=== PATIENT | female | born 1995 | race Caucasian/White ===

== ENCOUNTER → 2018-09-30 10:54 | Outpatient (CLI) | payer OTHER, SELFPAY | PROVIDERS: Family Provider Family Medicine; PCP Family Medicine; Referring Provider Family Medicine; Visit Provider Family Medicine | DX: R19.7 Diarrhea, unspecified (principal) | CPT/HCPCS: 36415; J7030 ==

== ENCOUNTER → 2018-11-20 08:33 | Outpatient (CLI) | payer OTHER, SELFPAY | PROVIDERS: Family Provider Family Medicine; PCP Family Medicine; Referring Provider Family Medicine; Visit Provider Family Medicine | DX: K85.90 Acute pancreatitis without necrosis or infection, unspecified (principal) | CPT/HCPCS: 36415 ==

== ENCOUNTER 2021-09-28 10:49 | Outpatient (CLI) | payer BC, SELFPAY ==
[2021-09-28 13:08] LABS: Anion Gap 5 (5-15); BUN 13 mg/dL (7-18); BUN/Creat Ratio 18.4 RATIO (10-20); Calcium,Total 9.1 mg/dL (8.5-10.1); Chloride 106 mmol/L (98-107); Cholesterol 178 mg/dL (200); Creatinine, Serum 0.71 mg/dL (0.55-1.02); EST Glomerular Filtration Rate 107 mL/min (>60); Est Glom Filt Rate - Afr Amer 129 mL/min (>60); Glucose 75 mg/dL (74-106); High Density Lipoprotein 47 mg/dL; Potassium 3.9 mmol/L (3.5-5.1); Sodium Level 138 mmol/L (136-145); Triglycerides 240 mg/dL; Very Low Density Lipoprotein 48 mg/dL (5-40)
[2021-09-28 13:15] LABS: Vitamin D,25 Hydroxy 40.2 ng/mL
== END 2021-09-28 23:59 | disposition home or self-care (01) ==
LOC: MFPLAB 10:51
PROVIDERS: PCP Family Medicine; Referring Provider Family Medicine; Visit Provider Family Medicine
DX: Z00.00 Encounter for general adult medical examination without abnormal findings (principal)
CPT/HCPCS: 36415; 80048; 80061; 82306

== ENCOUNTER → 2021-10-30 | Outpatient (CLI) | payer BC, SELFPAY ==
[2021-10-30 17:24] LABS: Mean Corp Hgb Conc 32.5 g/dL (32-36); Mean Corpuscular Hgb 26.6 pg (27.0-32.0); Mean Platelet Vol. 9.3 fl (6.2-12.0); Platelet Count 332 K/mm3 (150-450); RBC Distribution Width CV 13.9 % (11.6-14.6); RBC Distribution Width SD 41.4 fl (35.1-43.9); Red Blood Count 4.88 M/mm3 (4.2-5.4); White Blood Count 13.5 K/mm3 (4.4-11.0)
[2021-10-30 17:53] LABS: Estradiol 40.9 pg/mL; Follicle Stimulating Hormone 4.1 mIU/mL; Luteinizing Hormone 13.4 mIU/mL; T4 Free Direct 0.77 ng/dL (0.76-1.46); Thyroid Stim Hormone (TSH) 4.09 uIU/mL (0.358-3.74)
[2021-11-03 08:52] LABS: Testosterone Free 1.4 pg/mL (0.0-4.2)
[2021-11-05 16:41] LABS: HPV Reflexed? NOT INDICATED
== END | disposition home or self-care (01) ==
PROVIDERS: PCP Family Medicine; Visit Provider Obstetrics & Gynecology
DX: N93.9 Abnormal uterine and vaginal bleeding, unspecified (principal); Z12.4 Encounter for screening for malignant neoplasm of cervix
CPT/HCPCS: 36415; 82670; 83001; 83002; 84402; 84439; 84443; 85027; 88175; G0145

== ENCOUNTER → 2023-02-06 | Outpatient (CLI) | payer OTHER, MEDICAID, SELFPAY ==
[2023-02-06 17:39] LABS: Absolute Lymphocyte Count 5.15 X10^3/uL (0.83-4.51); Absolute Neutrophil Count 8.7 X10^3/uL (2.0-7.7); Basophil# 0.04 X10^3/uL; Basophil% 0.3 % (0-1); Eosinophil# 0.15 X10^3/uL; Hematocrit 44.5 % (37-47); Hemoglobin 13.8 g/dL (12.0-15.0); Lymphocyte # 5.15 X10^3/ul (0.83-4.51); Mean Corpuscular Hgb 26.6 pg (27.0-32.0); Mean Corpuscular Volume 85.7 fL (81-99); Mean Platelet Vol. 9.1 fl (6.2-12.0); Monocyte# 0.62 X10^3/uL; Monocyte% 4.2 % (0-10); NRBC Flagged by Analyzer 0 % (0-5); Neutrophil # 8.67 X10^3/uL (2.7-7.7); POSITIVE DIFFERENTIAL YES; Platelet Count 361 K/mm3 (150-450); RBC Distribution Width CV 13.9 % (11.6-14.6); RBC Distribution Width SD 43.2 fl (35.1-43.9); Red Blood Count 5.19 M/mm3 (4.2-5.4); White Blood Count 14.7 K/mm3 (4.4-11.0)
[2023-02-06 18:04] LABS: AST(SGOT) 17 U/L (15-37); Alanine Aminotransfer ALT/SGPT 27 U/L (13-56); Albumin, Serum 3.8 g/dL (3.2-5.0); Alkaline Phosphatase 33 U/L (45-117); Anion Gap 8 (5-15); BUN 13 mg/dL (7-18); BUN/Creat Ratio 16.2 RATIO (10-20); Calcium,Total 9.5 mg/dL (8.5-10.1); Chloride 104 mmol/L (98-107); Differential Indicated SCAN CRITERIA MET; EST Glomerular Filtration Rate 91 mL/min (>60); Est Glom Filt Rate - Afr Amer 110 mL/min (>60); Glucose 81 mg/dL (74-106); Protein, Total 7.8 g/dL (6.4-8.2); Sodium Level 139 mmol/L (136-145)
[2023-02-06 18:14] LABS: Platelet Estimate ADEQUATE (ADEQ); Red Cell Morphology NORM C+C NORMAL (NORM C&C)
== END | disposition home or self-care (01) ==
LOC: MTLAB 16:46
PROVIDERS: PCP Family Medicine; Visit Provider Family Medicine
DX: R10.11 Right upper quadrant pain (principal)
CPT/HCPCS: 36415; 80053; 85025

== ENCOUNTER → 2023-02-12 | Outpatient (CLI) | payer OTHER, MEDICAID, SELFPAY ==
[2023-02-12 17:32] LABS: Absolute Lymphocyte Count 4.64 X10^3/uL (0.83-4.51); Basophil# 0.03 X10^3/uL; Basophil% 0.2 % (0-1); Eosinophil# 0.07 X10^3/uL; Eosinophils% 0.6 % (0-5); Hematocrit 42.7 % (37-47); Hemoglobin 13.2 g/dL (12.0-15.0); Lymphocyte # 4.64 X10^3/ul (0.83-4.51); Lymphocyte % 37.6 % (19-41); Mean Corp Hgb Conc 30.9 g/dL (32-36); Mean Corpuscular Hgb 25.9 pg (27.0-32.0); Mean Corpuscular Volume 83.7 fL (81-99); Mean Platelet Vol. 9.4 fl (6.2-12.0); Monocyte# 0.56 X10^3/uL; Monocyte% 4.5 % (0-10); NRBC Flagged by Analyzer 0 % (0-5); Neutrophil # 6.99 X10^3/uL (2.7-7.7); Neutrophil % 56.7 % (47-70); Platelet Count 344 K/mm3 (150-450); RBC Distribution Width CV 13.9 % (11.6-14.6); RBC Distribution Width SD 42.5 fl (35.1-43.9); White Blood Count 12.3 K/mm3 (4.4-11.0)
== END | disposition home or self-care (01) ==
LOC: MFPLAB 14:47
PROVIDERS: PCP Family Medicine; Visit Provider Family Medicine
DX: R10.11 Right upper quadrant pain (principal)
CPT/HCPCS: 36415; 85025

== ENCOUNTER → 2023-02-20 | Outpatient (CLI) | payer OTHER, MEDICAID, SELFPAY ==
--- NOTE | 2023-02-20 07:28 | US_ITS ---
STUDY: ABDOMINAL ULTRASOUND - RIGHT UPPER QUADRANT REASON FOR VISIT: Female, 27 years old RUQ PAIN TECHNIQUE: Ultrasound evaluation of the right upper quadrant was performed with real-time and static nixon-scale imaging. TECHNICAL QUALITY: Limited. Examination limited due to obesity. COMPARISON: None. FINDINGS: Liver: The liver measures 16.4 cm. There is increased echogenicity consistent with fatty infiltration. The bile ducts are within normal limits. There is hepatic color flow. The direction of portal flow is hepatopetal. There is no demonstrated mass lesion. Gallbladder: Normal distended gallbladder. The gallbladder wall measures 1.9 mm. There is a negative sonographic Molina''s sign. There is no pericholecystic fluid. There are no gallstones. Common Bile Duct (C.B.D.): The common bile duct measures 5.3 mm. Pancreas: Normal size of the head, body and tail of the pancreas. There is increased echogenicity of the pancreas. There is no demonstrated pancreatic mass or cyst. Right Kidney: Normal size of the right kidney. The right kidney measures 10.3 cm x 5.8 cm x 5.5 cm. Normal renal cortex. The right cortex measures 1.2 cm. There is no demonstrated renal mass or cyst. There is no right hydronephrosis. US/Abdomen Limited IMPRESSION: Fatty infiltration of the liver. Electronically Signed: Giovanni Merritt MD at 14:45 EDT ,
== END | disposition home or self-care (01) ==
LOC: US 07:27
PROVIDERS: PCP Family Medicine; Referring Provider Family Medicine; Visit Provider Family Medicine
DX: R10.11 Right upper quadrant pain (principal)
CPT/HCPCS: 76705

== ENCOUNTER → 2023-12-18 | Outpatient (CLI) | payer OTHER, SELFPAY ==
[2023-12-18 17:27] LABS: T4 Free Direct 0.76 ng/dL (0.76-1.46); Thyroid Stim Hormone (TSH) 3.85 uIU/mL (0.358-3.74)
== END | disposition home or self-care (01) ==
LOC: LAB 16:02
PROVIDERS: PCP Family Medicine; Visit Provider Nurse Practitioner Family
DX: Z13.29 Encounter for screening for other suspected endocrine disorder (principal); R53.83 Other fatigue
CPT/HCPCS: 36415; 84439; 84443

== ENCOUNTER 2024-03-29 15:25 | Emergency (ER) | payer OTHER, SELFPAY ==
[2024-03-29 15:26] VITALS: BP 152/108; PULSE 114; RESP 18; TEMP 36.4; O2SAT 99; BMI 49.2
--- NOTE | 2024-03-29 16:29 | EDS_ITS ---
HPI HPI - Female History of Present Illness Chief Complaint: Vag Bleeding Detail of Chief Complaint: Vaginal bleeding that started Informant: patient Pain Pain: Positive for Pelvic Pain Onset: Days Context: Sudden Onset Timing: Continuous Quality: Positive for Cramping Location: Suprapubic Current Severity: Mild Maximum Severity: Moderate Worsened by: Movement and [place] Relieved by: Remaining Still and NSAIDS Bleeding Issue: Positive for Vaginal bleeding; Negative for Passing clots or Passing tissue Associated Symptoms Associated Symptoms: Negative for Dysuria, Frequency, Urgency or Hematuria Test: Positive Sexually: Positive for Active Control: No control Narrative Narrative: Patient is a 28-year-old female. She reports having irregular menses. She has sexually active. She states vaginal bleeding started on . She is using 1 ultra pad per hour. She does endorse intermittent orthostatic lightheadedness. She denies dyspnea or dyspnea on exertion. She denies symptoms of . She does report frequency. She denies flank pain. She does drink endorse low central back pain. She denies history of bleeding d isorder or bruising easily. Prior similar symptoms: No Recent Illness/Hospitalization: No PFSH PFSH Medical History Pancreatitis Home Medications ?Medication ?Instructions ?Recorded ?Last Taken ?Type nortriptyline 25 mg capsule 25 mg PO DAILY 12/18/23 Unknown History megestrol 20 mg tablet 40 mg (2 x 20 mg) PO BID #35 tabs 03/29/24 Unknown Rx Allergy/AdvReac Type Severity Reaction Status Date / Time Penicillins AdvReac Mild Rash Verified 03/29/24 15:29 Family History Grandmother Breast cancer Aunt Breast cancer Father Myocardial infarction Other Cancer Social History adopted: No household members: significant other housing: house number of children: 0 current occupational status: employed current occupation: [employer] current occupational exposures/hazards: No pets and animals: Yes leisure activities: other history of recent travel: No sexually active: Yes Smoking Status: Never smoker Electronic Cigarette Use: with nicotine alcohol intake: current alcohol intake frequency: holidays/special occasions only substance use type: other caffeine: Yes Type: tea eating out: 1-3 times/week during the past year weight has: remained stable what type of physical activity do you participate in: walking frequency: 3-4 times per week marisol/alevism: None seatbelt use: always do you feel safe at home: Yes ROS ROS ED Constitutional Constitutional ED: Reports chills; Denies fever(s) or subjective Eyes Eyes: Denies blurry vision, change in vision or diplopia ENT ENT ED: Denies ear pain or rhinorrhea Cardiovascular Cardiovascular: Denies chest pain or palpitations Respiratory/Chest Respiratory/Chest: Denies cough, dyspnea or dyspnea on exertion Gastrointestinal Gastrointestinal: Reports abdominal pain and other Details: Midline suprapubic discomfort. ; Denies constipation, diarrhea, melena, nausea or vomiting Genitourinary Genitourinary ED: Denies dysuria, hematuria or urinary frequency Musculoskeletal Musculoskeletal: Denies arthralgias, myalgias or neck pain Integumentary Denies rash Neurologic Neurologic: Denies headache(s) or paresthesias Hematologic/Lymphatic Hematologic/Lymphatic: Denies easy bleeding or easy bruising EXAM Physical Exam Const Vital Signs: 03/29/24 15:26 03/29/24 17:31 03/29/24 17:32 Temperature 97.5 F L Temperature Source Temporal Pulse Rate 114 H 85 Pulse Rate [Lying] 94 Pulse Rate [Sitting (for 1 minute prior to obtaining)] 86 Pulse Rate [Standing (for 1 minute prior to obtaining)] 80 Respiratory Rate 18 16 Blood Pressure 152/108 H 110/63 Blood Pressure [Lying] 148/133 H Blood Pressure [Sitting (for 1 minute prior to obtaining)] 111/65 Blood Pressure [Standing (for 1 minute prior to obtaining)] 114/70 Blood Pressure Mean 122 78 Blood Pressure Mean [Lying] 138 Blood Pressure Mean [Sitting (for 1 minute prior to obtaining)] 80 Blood Pressure Mean [Standing (for 1 minute prior to obtaining)] 84 Pulse Ox 99 Oxygen Delivery Method Room Air Positive well nourished and well developed General Appearance ED: well developed and NAD; Negative for pallor HEENT Reports moist mucous membranes HEENT Narrative: Ears normal. Nares patent. Eyes PERRL and EOMs intact bilaterally General Eye ED: Negative for pale conjunctiva or scleral icterus Resp normal respiratory effort and clear to auscultation bilaterally Cardio regular rhythm, S1 normal heart sound, no murmurs and no JVD Rate: tachycardic GI normal to inspection, nondistended, normoactive bowel sounds, soft to palpation, non-distended and no masses; Negative for non-tender GI Narrative: There is tenderness in the suprapubic area. Narrative: External genitalia normal. Vaginal mucosa appears normal. Cervix os is irregular shaped. Patient states she is ever been . Difficult to assess size of uterus due to body habitus. There is slight active bleeding noted. Question of a cystocele which would be unusual since she states she is never been on bimanual exam. There is no cervical motion tenderness. There is no adnexal fullness or tenderness. Back/Spine no CVA tenderness Extremity normal to inspection General Extremety ED: Negative for edema General Extremity: Negative for edema Neuro oriented x3 and CN's II-XII intact bilaterally Sensorium / Orientation: alert Psych mental status grossly normal Skin no rashes or lesions noted and no wounds General Skin Exam: Negative for pallor MDM MDM MDM Narrative Medical decision making narrative: Patient with abnormal vaginal bleeding. Since she is sexually active does not use any for control will obtain test. CBC to obtain H&H. Will also have nurse distiller pelvic exam. Patient is tachycardic. Since she is tachycardic orthostatic vital signs were ordered. Lab Data Attestation: I reviewed the patient's lab results. Lab results narrative: CBC reveals mild elevation of white count. Serum test is negative. Labs: Laboratory Results - last 24 hr 03/29/24 16:36 WBC 12.5 H RBC 4.91 Hgb 13.2 Hct 41.2 MCV 83.9 MCH 26.9 L MCHC 32.0 RDW Std Deviation 42.5 RDW Coeff of Eric 13.8 Plt Count 295 MPV 8.9 Immature Gran % (Auto) 0.400 Neut % (Auto) 59.7 Lymph % (Auto) 34.2 [place] % (Auto) 4.8 Eos % (Auto) 0.7 Baso % (Auto) 0.2 Absolute Neuts (auto) 7.5 Absolute Lymphs (auto) 4.28 Nucleated RBC % 0 Serum , Qual NEGATIVE Radiography Diagnostic Testing: Clinical Impression(s) from Imaging Studies Transvaginal US 03/29/24 17:33 IMPRESSION: No definite acute or significant abnormality seen. Electronically Signed: Joce Martin MD at 19:07 EDT , Spoke with Zeina again regarding ultrasound. Plan is Megace 40 mg for 7 days then 20 mg for 21 days. She is to contact the office for outpatient follow-up. Management Discussion w/another healthcare provider: Necktie Turner (Spoke with Zeina the nurse practitioner for Katelin Feliz and Dr. Allison Greenberg. Plan is ultrasound. If there is no abnormality call office for follow-up otherwise contact Dr. Danny Cramer) Discharge Plan Triage Chief Complaint: Vag Bleeding ED Provider: Gurjit Rios Dx/Rx/DC Orders Clinical Impression: Abnormal vaginal bleeding, Irregular menses Instructions: ED Dysfunctional Uterine Bleeding Prescriptions: New megestrol 20 mg tablet 40 mg PO BID Qty: 35 0RF Rx Instructions: Take 2 a day for 7 days then 1 a day for 21 days No Action nortriptyline 25 mg capsule 25 mg PO DAILY Primary Care Provider: Jeffrey Orourke Referrals: Jeffrey Orourke MD [Primary Care Provider] - Katelin Feliz MD [Med Staff - Active Staff] - 1 Week Print Language: Bahamian Disposition Disposition: Home, Self Care
[2024-03-29 16:53] LABS: Absolute Lymphocyte Count 4.28 X10^3/uL (0.83-4.51); Absolute Neutrophil Count 7.5 X10^3/uL (2.0-7.7); Basophil# 0.03 X10^3/uL; Basophil% 0.2 % (0-1); Eosinophil# 0.09 X10^3/uL; Eosinophils% 0.7 % (0-5); Hematocrit 41.2 % (37-47); Hemoglobin 13.2 g/dL (12.0-15.0); Lymphocyte # 4.28 X10^3/ul (0.83-4.51); Lymphocyte % 34.2 % (19-41); Mean Corpuscular Hgb 26.9 pg (27.0-32.0); Mean Corpuscular Volume 83.9 fL (81-99); Mean Platelet Vol. 8.9 fl (6.2-12.0); Monocyte% 4.8 % (0-10); NRBC Flagged by Analyzer 0 % (0-5); Neutrophil # 7.48 X10^3/uL (2.7-7.7); Neutrophil % 59.7 % (47-70); Platelet Count 295 K/mm3 (150-450); RBC Distribution Width CV 13.8 % (11.6-14.6); RBC Distribution Width SD 42.5 fl (35.1-43.9); Red Blood Count 4.91 M/mm3 (4.2-5.4); White Blood Count 12.5 K/mm3 (4.4-11.0)
[2024-03-29 17:06] LABS: Internal QC Validated? YES +Cl - CLEAR BKGD; Pregnancy, Serum, hCG Quali. NEGATIVE Negative
[2024-03-29 17:31] VITALS: BP 110/63; PULSE 85; RESP 16
[2024-03-29 17:32] VITALS: BP 111/65; BP 114/70; BP 148/133; PULSE 80; PULSE 86; PULSE 94
--- NOTE | 2024-03-29 17:33 | US_ITS ---
STUDY: ULTRASOUND TRANSVAGINAL CLINICAL: Female, 28 years old. Abnormal vaginal bleeding and pelvic pain TECHNIQUE: Transvaginal COMPARISON: None. FINDINGS: Normal uterine size measuring 6.7 x 4.6 x 3.8 cm in maximal craniocaudal dimension. There are no myometrial masses. Normal endometrial thickness measuring 5.4 mm. There are no endometrial masses, and there is no fluid in the endometrial cavity. Normal uterine cervix. Normal right ovary, measuring 3.8 x 2.2 x 2.8 cm. There are multiple follicles without a dominant cyst. Normal blood flow. Normal left ovary, measuring 2.8 x 1.9 x 1.7 cm. There are multiple follicles without a dominant cyst. Normal blood flow. There is no free fluid in the pelvis. Polycystic ovary disease: No. US/Transvaginal Non- IMPRESSION: No definite acute or significant abnormality seen. Electronically Signed: Joce Martin MD at 19:07 EDT ,
[2024-03-29 19:00] VITALS: BP 115/89; PULSE 75; RESP 18; O2SAT 100
[2024-03-29 19:53] VITALS: BP 123/87; PULSE 76; RESP 16; TEMP 36.8; O2SAT 100
== END 2024-03-29 19:59 | disposition home or self-care (01) ==
PROVIDERS: Emergency Provider Emergency Medicine; PCP Family Medicine; Visit Provider Emergency Medicine
DX: N93.9 Abnormal uterine and vaginal bleeding, unspecified (principal); N92.6 Irregular menstruation, unspecified
CPT/HCPCS: 76830; 84703; 85025; 99283; A4216

== ENCOUNTER → 2024-04-07 | Outpatient (CLI) | payer OTHER, SELFPAY ==
[2024-04-07 17:23] LABS: T4 Free Direct 0.75 ng/dL (0.76-1.46)
[2024-04-08 17:05] LABS: Free T3 2.4 pg/mL (2.18-3.98)
[2024-04-10 08:12] LABS: Thyroid Peroxidase AB 13 IU/mL (0-34)
== END | disposition home or self-care (01) ==
LOC: WOBLAB 14:14
PROVIDERS: PCP Family Medicine; Referring Provider Nurse Practitioner Family; Visit Provider Nurse Practitioner Family
DX: Z13.29 Encounter for screening for other suspected endocrine disorder (principal)
CPT/HCPCS: 36415; 84439; 84443; 84481; 86376

== ENCOUNTER → 2024-07-13 | Outpatient (CLI) | payer OTHER, SELFPAY ==
[2024-07-13 14:43] LABS: Free T3 2.8 pg/mL (2.18-3.98); T4 Free Direct 0.85 ng/dL (0.76-1.46)
== END | disposition home or self-care (01) ==
LOC: BWCLAB 08:22
PROVIDERS: PCP Family Medicine; Referring Provider Nurse Practitioner Family; Visit Provider Nurse Practitioner Family
DX: Z13.29 Encounter for screening for other suspected endocrine disorder (principal); E03.9 Hypothyroidism, unspecified
CPT/HCPCS: 36415; 84439; 84443; 84481

== ENCOUNTER → 2024-12-23 | Outpatient (CLI) | payer OTHER, SELFPAY | END | disposition home or self-care (01) | LOC: LABSPEC 16:22 | PROVIDERS: PCP Family Medicine; Referring Provider Nurse Practitioner Family; Visit Provider Nurse Practitioner Family | DX: Z12.4 Encounter for screening for malignant neoplasm of cervix (principal) | CPT/HCPCS: 88175; G0145 ==

== ENCOUNTER → 2025-01-27 | Outpatient (CLI) | payer OTHER, SELFPAY | END | disposition home or self-care (01) | PROVIDERS: PCP Family Medicine; Referring Provider Nurse Practitioner Family; Visit Provider Nurse Practitioner Family | DX: Z00.00 Encounter for general adult medical examination without abnormal findings (principal); Z80.3 Family history of malignant neoplasm of breast; Z80.41 Family history of malignant neoplasm of ovary | CPT/HCPCS: 36415 ==

== ENCOUNTER → 2025-03-16 | Outpatient (CLI) | payer OTHER, SELFPAY ==
--- OUTSIDE RECORDS SUMMARY | 2025-03-16 18:55 | XMS RPT_ITS | CCD ---
Author Organization [facility] Care Team Providers Care Fruit Or Nut Grower Name Role Phone Jeffrey Orourke MD Primary Care Provider PHYSICIAN, NOT RECORDED Primary Care Physician Jaci Orourke MD, Dr. Murphy Primary Care Provider Sharad CARPENTER, Dr. Murphy Referring Provider King JAYDEN, Dr. Carlson Attending Provider Sae CONCAVING MACHINE OPERATOR-C, Nancy Attending Provider Sae CONCAVING MACHINE OPERATOR-C, Nancy Referring Provider Jeffrey Orourke Primary Care Unavailable Orourke, Jeffrey Referring Unavailable Nancy Quevedo Attending Unavailable Orourke, Jeffrey Primary Care Unavailable Orourke, Jeffrey Referring Unavailable Sae, Nancy Attending Unavailable Marquita Bourgeois NP Attending Unavailable Orourke, Jeffrey Referring Unavailable Orourke, Jeffrey Primary Care Unavailable Orourke, Jeffrey Primary Care Unavailable Aldo Linares Attending Unavailable Orourke, Jeffrey Referring Unavailable RiosGurjit Attending Unavailable Orourke, Jeffrey Primary Care Unavailable Orourke, Jeffrey Primary Care Unavailable Sae, Nancy Referring Unavailable Irisman, Nancy Attending Unavailable Orourke, Jeffrey Primary Care Unavailable Barkman, Nancy Referring Unavailable Barkman, Nancy Attending Unavailable Orourke, Jeffrey Primary Care Unavailable Barkman, Nancy Attending Unavailable Barkman, Nancy Referring Unavailable Barkman, Nancy Attending Unavailable Orourke, Jeffrey Primary Care Unavailable Barkman, Nancy Referring Unavailable Barkman, Nancy Attending Unavailable Orourke, Jeffrey Referring Unavailable Orourke, Jeffrey Primary Care Unavailable Orourke, Jeffrey Referring Unavailable Orourke, Jeffrey Primary Care Unavailable Sae, Nancy Attending Unavailable Allergies Allergy Classification Reported Allergen(s) Allergy Type Date of Onset Reaction(s) Facility (2 sources) Penicillins; Translations: [penicillins] Drug Allergy 5 Rash [facility] (4 sources) Penicillins Propensity to adverse reactions 5 [facility] (1 source) Penicillins Drug allergy (disorder) 5 [facility] Repository Medications Current Medications Medication Drug Class(es) Dates Sig (Normalized) Sig (Original) {7 (Ethinyl Estradiol 0.035 MG / norgestimate 0.18 MG Oral Tablet) / 7 (Ethinyl Estradiol 0.035 MG / norgestimate 0.215 MG Oral Tablet) / 7 (Ethinyl Estradiol 0.035 MG / norgestimate 0.25 MG Oral Tablet) / 7 (Inert Ingredients 1 MG Oral Tablet) } Pack (1 source) Progestin, Estrogen Start: 9 take 1 tablet by mouth once daily ethinyl estradiol-norgestimate triphasic 35 mcg oral tablet Dose = 1 tab(s), Oral, qDay Start Date: 11/09/18 Status: Ordered medroxyPROGESTERone acetate 10 mg oral tablet (2 sources) Progestin Start: 5 take 1 tablet by mouth once daily Medroxyprogesterone (Provera) 10 mg tablet Active 10 mg PO daily 10 January 27, 2025 12:00am [place] (2 sources) Start: [address] [place] [address] [place] Active December 23, 2024 12:00am pantoprazole 20 mg delayed release oral tablet (1 source) Proton Pump Inhibitor Start: 9 pantoprazole 20 mg oral enteric coated tablet Dose : 20 mg = 1 tab(s), Oral, qDay, # 30 tab(s), 0 Refill(s), Pharmacy: [facility] [address] [place] Start Date: 11/10/18 Status: Ordered Completed/Discontinued Medications Medication Drug Class(es) Dates Sig (Normalized) Sig (Original) guaiFENesin (1 source) GUAIFENESIN (MUCINEX ORAL) Take by mouth. 0 Active Comment on above: Take by mouth. levothyroxine sodium 0.075 mg oral tablet (4 sources) l-Thyroxine Start: 10-08-2024 End: 12-23-2024 take 1 tablet by mouth once daily Levothyroxine 75 mcg tablet Discontinued 75 ug PO daily 90 October 08, 2024 12:00am December 23, 2024 3:39pm MEDICATION, NON-DATABASE (1 source) MEDICATION, NON-DATABASE Oral control, unsure of name 0 Active Comment on above: Oral control, unsure of name megestrol acetate 20 mg oral tablet (4 sources) Progestin Start: 03-29-2024 End: 07-15-2024 take 2 tablets by mouth once daily, then take 1 tablet by mouth once daily Megestrol 20 mg tablet Discontinued 40 mg PO TWICE A DAY 35 0 March 29, 2024 12:00am July 15, 2024 4:46pm Take 2 a day for 7 days then 1 a day for 21 days metFORMIN hydrochloride 1000 mg oral tablet (4 sources) Biguanide Start: 10-08-2024 End: 12-23-2024 take 1 tablet by mouth once daily Metformin 1,000 mg tablet Discontinued 1000 mg PO daily 90 3 October 08, 2024 12:00am December 23, 2024 3:39pm nortriptyline 25 mg oral capsule (4 sources) Tricyclic Antidepressant Start: 2023 End: 07-15-2024 take 1 capsule by mouth once daily Nortriptyline 25 mg capsule Discontinued 25 mg PO DAILY 2023 12:00am July 15, 2024 4:46pm Problems Problem Classification Problem Date Documented Date Episodic/Chronic Contraceptive and procreative management (1 source) Encounter for contraceptive management, unspecified; Translations: [Encounter for contraceptive management, unspecified] Onset: 01-27-2025 Episodic Menstrual disorders (16 sources) Irregular periods; Translations: [Irregular menstruation, unspecified] Onset: 01-27-2025 04-07-2024 Chronic Comment on above: x 2 years. secondary Other endocrine disorders (14 sources) Polycystic ovary syndrome; Translations: [Polycystic ovarian syndrome] 10-10-2024 Chronic Other endocrine disorders (1 source) Polycystic ovarian syndrome; Translations: [Polycystic ovarian syndrome] Onset: 01-27-2025 Chronic Other female genital disorders (4 sources) Abnormal vaginal bleeding; Translations: [Abnormal uterine and vaginal bleeding, unspecified] 04-07-2024 Chronic Other female genital disorders (1 source) Abnormal uterine and vaginal bleeding, unspecified; Translations: [Abnormal uterine and vaginal bleeding, unspecified] Onset: 04-19-2024 Chronic Other female genital disorders (4 sources) Cyst of cervix; Translations: [Other specified noninflammatory disorders of cervix uteri] 04-07-2024 Episodic Comment on above: above cervical os. Other screening for suspected conditions (not mental disorders or infectious disease) (14 sources) Thyroid function tests abnormal; Translations: [Abnormal results of thyroid function studies] Onset: 07-29-2024 10-10-2024 Episodic Residual codes; unclassified (4 sources) Family history of malignant neoplasm of ovary; Translations: [Family history of malignant neoplasm of ovary] 01-27-2025 Episodic Comment on above: aunt/cousin Residual codes; unclassified (1 source) Family history of malignant neoplasm of ovary; Translations: [Family history of malignant neoplasm of ovary] Onset: 01-27-2025 Episodic Results Test Name Value Interpretation Reference Range Facility Laboratory - Chemistry and C hemistry - challengeOrdered By: Nancy Quevedo on 01-27-2025 HCG ( test) Ql (U) Negative [facility] NATERAon 01-27-2025 NATURA SEE SCANNED REPORT Normal [facility] Comment on above: Performed By: #### L 700.6800, L100.0100 #### [facility] [address] [place], [place], [id number] Assistive Technology Specialist Office Visit Reporton 01-27-2025 Assistive Technology Specialist Office Visit Report [facility] [address], [address] [place] [address] OFFICE VISIT Date of Service: 01/27/25 MR#: [id number] Acct: [id number] Name: JUANITO ESTEVEZ Rep #: [id number] : 1995 Provider: ISAC Hi Age/Sex: 29/F Location: [facility] Status: Signed Intake Vital Signs 12/23/24 15:33 01/27/25 15:21 Height 5 ft 3.5 in 5 ft 3.5 in Weight: 275 lb 273 lb 8 oz BMI 47.9 47.7 BP 122/75 H 128/86 H Intake Visit Reasons: OCP discussion $30 copay 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: No Is patient in pain?: No Allergies Penicillins Adverse Reaction (Mild, Verified 01/27/25 15:26) Rash Medications ???Medication ???Instructions ???Recorded ???Confirmed ???Type medroxyprogesterone 10 mg tablet 10 mg PO QDAY #10 tabs 01/27/25 Rx (Provera) Post menopausal: No Patient : No : No PFSH Medical History Abnormal results of thyroid function studies PCOS (polycystic ovarian syndrome) Pancreatitis Family History Grandmother Breast cancer Aunt Breast cancer Father Myocardial infarction Other Cancer Social History adopted: No household members: significant other housing: house number of children: 0 current occupational status: employed current occupation: [employer] current occupational exposures/hazards: No pets and animals: Yes leisure activities: other history of recent travel: No sexually active: Yes Smoking Status: Never smoker Electronic Cigarette Use: with nicotine alcohol intake: current alcohol intake frequency: holidays/special occasions only substance use type: other caffeine: Yes Type: tea eating out: 1-3 times/week during the past year weight has: remained stable what type of physical activity do you participate in: walking frequency: 3-4 times per week marisol/anabaptism: None seatbelt use: always do you feel safe at home: Yes HPI OCP discussion $30 copay Details: JUANITO ESTEVEZ is a 29 year old who presents for OCP discussion vs provera challenge. She has been having irregular menses x 2 years; recently however has not had a menses since Jul 2024. Multiple negative tests. History of PCOS. It was recommended by her bill adjuster to start OCP however she has a hard time remembering to take medication. Interested in provera challenge/possible IUD in the future. History 0 Elective abortions Hx Para Spontaneous abortions Hx # Term Pregnancies Ectopic pregnancies Hx # Pregnancies Multiple births # of living children ROS Const Constitutional: Denies chills, fatigue, fever(s), headache(s) or weight loss Eyes Eyes: Denies change in vision ENT ENT: Denies dizziness Resp Resp: Denies cough Neuro Neuro: Denies dizziness Endo Endo: Denies cold intolerance, excessive sweating or heat intolerance Exam Const General: cooperative, healthy appearing, comfortable, no acute distress, well groomed and well hydrated Nutritional Appearance: well nourished Orientation: alert, awake and oriented x3 Eyes General: appearance normal, both eyes and all related structures Resp Effort Inspection: normal respiratory effort, able to speak in complete sentences and symmetric chest movement Neuro General: patient alert, patient awake, patient oriented x3 and moves all extremities Psych Appearance: grossly normal Mental Status: mental status grossly normal Affect: normal affect Speech and Movement: speech and movement normal Attitude: cooperative Results POC Urine Office , Urine Negative Last Edit by Marquita Bridges on 01/27/25 15:25 Coding Level of Care Code Established Pt Off vis,est,level 3 Patient Type Established Diagnoses PCOS (polycystic ovarian syndrome) E28.2 Irregular menses N92.6 Amenorrhea N91.2 Family history of ovarian cancer Z80.41 Assessment and Plan Assessment and Plan (1) PCOS (polycystic ovarian syndrome): Status: Chronic Plan: chronic management--not interested in control at this time; considering IUD after provera challenge. (2) Irregular menses: Status: Acute Comment: x 2 years. (3) Amenorrhea: Status: Acute Comment: secondary Plan: Has not had menses since Jul. Negative test today. Discussed different treatment options to her and she would like to proceed with provera challenge. Aware of the possibility of --advised alt use of control such as condoms or abstaining from sex. Does not want to do OCP as she had a hard time remembering to take her pills consistently. She is interested in IUD as well however would like (more content not included)... Normal [facility] PAP I-G w/rfx hrHPV-Aptimaon 12-30-2024 ADEQ Comment Normal . [facility] Comment on above: Order Comment: Speci men Comment: No. of containers..01 ThinPrep Vial Result Comment: Sati sfactory for evaluation. No endocervical component is identified. Performed By: #### L 7400.0353 #### [facility] [address] [place], [address] COMM . Normal . [facility] Comment on above: Order Comment: Speci men Comment: No. of containers..01 ThinPrep Vial Performed By: #### L 7400.0353 #### [facility] [address] [place], [place], [address] COMMENT Comment Normal . [facility] Comment on above: Order Comment: Speci men Comment: No. of containers..01 ThinPrep Vial Result Comment: This liquid based ThinPrep(R) pap test was screened with the use of an image guided system. Performed By: #### L 7400.0353 #### [facility] [address] [place], [address] DIAG Comment Normal . [facility] Comment on above: Order Comment: Speci men Comment: No. of containers..01 ThinPrep Vial Result Comment: NEGA TIVE FOR INTRAEPITHELIAL LESION OR MALIGNANCY. Performed By: #### L 7400.0353 #### [facility] [address] [place], [address] HPV RFLX Comment Normal . [facility] Comment on above: Order Comment: Speci men Comment: No. of containers..01 ThinPrep Vial Result Comment: The HPV DNA reflex criteria were not met with this specimen result therefore, no HPV testing was performed. Performed at: [address] [id number] Sanitary Landfill Operator: Magalis Barakat MD, Phone: [phone] Performed By: #### L 7400.0353 #### [facility] [address] [place], [address] PAPSMR Comment Normal . [facility] Comment on above: Order Comment: Speci men Comment: No. of containers..01 ThinPrep Vial Result Comment: The Pap smear is a screening test designed to aid in the detection of premalignant and malignant conditions of the uterine cervix. It is not a diagnostic procedure and should not be used as the sole means of detecting cervical cancer. Both false-positive and false-negative reports do occur. Performed By: #### L 7400.0353 #### [facility] [address] [place], [place], [address] PERFORM Comment Normal . [facility] Comment on above: Order Comment: Speci men Comment: No. of containers..01 ThinPrep Vial Result Comment: Fernanda Telles, Instantizer Operator (ASCP) Performed By: #### L 7400.0353 #### [facility] [address] [place], [place], [address] Cervical or vagninal specime n microscopic examination by cytology stain (reported asOrdered By: Nancy Quevedo on 12-23-2024 Cytology report Cyto stain Doc (Cvx/Vag) Comment . [facility] Comment on above: The Pap smear is a s creening test designed to aid in thedetection of premalignant and malignant conditions of theuterine cervix. It is not a diagnostic procedure andshould not be used as the sole means of detecting cervicalcancer. Both false-positive and false-negative reports dooccur. Laboratory - Chemistry and C hemistry - challengeOrdered By: Nancy Quevedo on 12-23-2024 HCG ( test) Ql (U) Negative [facility] - CytologyOrdered By: Nancy Quevedo on 12-23-2024 Instantizer Operator Cyto stain Nom (Cvx/Vag) [ID] Comment . [facility] Comment on above: Fernanda Telles, Cytolog ist (ASCP) Laboratory - Miscellaneous t estsOrdered By: Nancy Quevedo on 12-23-2024 Service comment (Unsp spec) [Interp] . . [facility] No Panel InformationOrdered By: Nancy Quevedo on 12-23-2024 Pap Smear Specimen Adequacy Comment . [facility] Comment on above: Satisfactory for bety luation. No endocervical component is identified. Assistive Technology Specialist Office Visit Reporton 12-23-2024 Assistive Technology Specialist Office Visit Report [facility] [address], [address] [place] [address] OFFICE VISIT Date of Service: 12/23/24 MR#: [id number] Acct: [id number] Name: JUANITO ESTEVEZ Rep #: [id number] : 1995 Provider: ISAC Hi Age/Sex: 29/F Location: [facility] Status: Signed Intake Vital Signs 10/08/24 14:00 12/23/24 15:33 Height 5 ft 3.5 in 5 ft 3.5 in Weight: 274 lb 4 oz 275 lb BMI 47.8 47.9 BP 119/82 H 122/75 H Blood Pressure Location Lt brachial Position Sitting Pulse 95 Pulse Source Monitor Pulse Oximetry (%) 96 Oxygen Delivery Method room air Intake Visit Reasons: 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 CLERK) 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: No Is patient in pain?: No Allergies Penicillins Adverse Reaction (Mild, Verified 12/23/24 15:39) Rash Medications ???Medication ???Instructions ???Recorded ???Confirmed ???Type NK 12/23/24 12/23/24 History Is last menstrual period known: Yes Last Menstrual Period: 06/23/24 Post menopausal: No Patient : No : No Control Method: none PFSH Medical History Abnormal results of thyroid function studies PCOS (polycystic ovarian syndrome) Pancreatitis Family History Grandmother Breast cancer Aunt Breast cancer Father Myocardial infarction Other Cancer Social History adopted: No household members: significant other housing: house number of children: 0 current occupational status: employed current occupation: [employer] current occupational exposures/hazards: No pets and animals: Yes leisure activities: other history of recent travel: No sexually active: Yes Smoking Status: Never smoker Electronic Cigarette Use: with nicotine alcohol intake: current alcohol intake frequency: holidays/special occasions only substance use type: other caffeine: Yes Type: tea eating out: 1-3 times/week during the past year weight has: remained stable what type of physical activity do you participate in: walking frequency: 3-4 times per week marisol/anabaptism: None seatbelt use: always do you feel safe at home: Yes History 0 Elective abortions Hx Para Spontaneous abortions Hx # Term Pregnancies Ectopic pregnancies Hx # Pregnancies Multiple births # of living children HPI 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 CLERK) Details: JUANITO ESTEVEZ is a 29 year old who presents for annual exam. Her last menses was in June or July of 2024--she is unsure which. She was seen by endocrinology and started on Synthroid and metformin however did not start these thus far. Last PAP: 2021; normal. History of abnormal PAP: no Last mammogram: age 40 History of abnormal mammogram: n/a Colon cancer screening: age 45 Other preventative health care screenings: Jeffrey Orourke; PCP. Female Reproductive History Last Menstrual Period: 06/23/24 Questions: metorrhagia: No, sexually active: Yes (no protection), dyspareunia: No and PCB: No ROS Const Constitutional: Denies chills, fatigue, fever(s), headache(s) or weight loss Eyes Eyes: Denies change in vision ENT ENT: Denies dizziness Resp Resp: Denies cough GI GI: Denies abdominal pain, constipation or nausea : Denies difficulty voiding, dysuria, hematuria, nipple discharge, pelvic pain, prolapse symptoms, urinary incontinence, vaginal discharge, vaginal dryness, vaginal odor or vaginal pruritus Skin Skin/Breast: Denies alopecia, rash, breast mass, breast pain, breast skin changes or nipple discharge Neuro Neuro: Denies dizziness Psych Psych: Denies anxiety or depression Endo Endo: Denies cold intolerance, excessive sweating or heat intolerance Exam Const General: cooperative, healthy appearing, comfortable, no acute distress, well groomed and well hydrated Nutritional Appearance: well nourished Orientation: alert, awake and oriented x3 HENMT Head: normal to inspection and normocephalic Ears: hearing grossly normal bilaterally and external ears normal Nose: external nose normal Face and sinus: normal facial exam Eyes General: appearance normal, both eyes and all related structures Neck Neck: normal visual inspection, full ROM and no lymphadenopathy Thyroid: thyroid normal Chest Chest palpation inspection: normal inspection of the chest Breast inspection: normal inspection of the breasts and normal inspection of the axillae Breast palpation: normal palpation of the breasts, normal palpation of the axillae and no axillary lymphadenopathy Resp Effort Inspection: normal respiratory effort, able to speak in complete sentences and symmetric chest movement GI Inspection: normal to inspection Palpation: soft and no (more content not included)... Normal [facility] Endocrinology Visit Reporton 10-08-2024 Endocrinology Visit Report [facility] [address] [place] [address] [address] [place] [address] OFFICE VISIT Date of Service: 10/08/24 MR#: [id number] Acct: [id number] Name: JUANITO ESTEVEZ Rep #: [id number] : 1995 Provider: Doug Dobbs Age/Sex: 28/F Location[place] [facility] [place] Status: Signed Intake Vital Signs 07/15/24 15:47 10/08/24 14:00 Height 5 ft 3.5 in 5 ft 3.5 in Weight: 274 lb 4 oz BMI 47.8 BP 119/82 H Blood Pressure Location Lt brachial Position Sitting Pulse 95 Pulse Source Monitor Pulse Oximetry (%) 96 Oxygen Delivery Method room air Intake Visit Reasons: Thyroid Chief Complaint: thyroid/menses Allergies Penicillins Adverse Reaction (Mild, Verified 10/08/24 14:01) Rash [facility] Medical History (Updated 10/10/24 @ 16:[address] Aldo Linares MD) Abnormal results of thyroid function studies PCOS (polycystic ovarian syndrome) Pancreatitis Family History Grandmother Breast cancer Aunt Breast cancer Father Myocardial infarction Other Cancer Social History adopted: No household members: significant other housing: house number of children: 0 current occupational status: employed current occupation: [employer] current occupational exposures/hazards: No pets and animals: Yes leisure activities: other history of recent travel: No sexually active: Yes Smoking Status: Never smoker Electronic Cigarette Use: with nicotine alcohol intake: current alcohol intake frequency: holidays/special occasions only substance use type: other caffeine: Yes Type: tea eating out: 1-3 times/week during the past year weight has: remained stable what type of physical activity do you participate in: walking frequency: 3-4 times per week marisol/anabaptism: None seatbelt use: always do you feel safe at home: Yes Female Reproductive History Menstrual Age of Menarche: 16 HPI HPI Chief Complaint: thyroid/menses Details: JUANITO ESTEVEZ, is a 28 F who presents to the office today for hormonal evaluation. She had menses at age 15. Menses are irregular. She is having about 4-5 menses per year. She has FMH of DM in her grandparents. She isn't preventing at this time, but she isn't sure that she wants children. She doesn't want to take OCP, but she wants a predictable period. She has had several TSH levels over 3 and under 5. TPO antibodies are negative. ROS Const Constitutional: No fatigue, weight change or change in appetite Eyes Eyes: No change in vision ENT ENT: No dizziness/vertigo or difficulty swallowing Cardio Cardiology: No chest pain at rest, chest pain with exertion, shortness of breath or palpitations Musc Musculoskeletal: No abnormal gait, joint pain, numbness or tingling Neuro Neurology: No abnormal gait, memory loss, numbness or tingling Psych Psychiatric: No change in appetite, No memory loss and No Thoughts of harming yourself/Others Resp Respiratory: No cough, chest congestion or shortness of breath Gastro GI: No abdominal pain, constipation, diarrhea or difficulty swallowing Genitourinary-Female: No burning urination Skin Skin: No itchy eyes or wounds Endo Endocrine: No fatigue or weight change Aller/Imm Allergy/Immunologic: No itchy eyes Exam Const General: cooperative, healthy appearing, comfortable, no acute distress, well developed and not cushingoid Nutritional Appearance: well nourished Orientation: alert, awake and oriented x3 Other: skin tags, acanthosis nigricans [facility] Head: normal to inspection Ears: hearing grossly normal bilaterally Nose: external nose normal Mouth: oral mucosae normal Eyes General: appearance normal, both eyes and all related structures Alignment and Position: alignment normal Periorbital: periorbital findings normal Eyelids: eyelids normal Conjunctivae: conjunctivae normal Neck Neck: normal visual inspection Neck mass: No Thyroid: thyroid normal Lymphatic: no lymphadenopathy noted Chest Chest palpation inspection: normal inspection of the chest Resp Effort Inspection: normal respiratory effort, able to speak in complete sentences, symmetric chest movement, no audible wheezes and no cough Auscultation: Bilateral: Clear to Auscultation Cardio Rate: regular rate Rhythm: regular rhythm Skin General: no rashes or lesions noted Neuro General: patient alert, patient awake and patient oriented x3 Cranial Nerves: CN's II-XI intact bilaterally Cognition: normal cognition Speech: speech normal Gait: normal gait Motor: muscle tone normal throughout Extrem General: no edema Psych Appearance: grossly normal Mental Status: mental status grossly norm (more content not included)... Normal [facility] Assistive Technology Specialist Office Visit Reporton 07-15-2024 Assistive Technology Specialist Office Visit Report [facility]'s [address], [address] [place] [address] OFFICE VISIT Date of Service: 07/15/24 MR#: [id number] Acct: [id number] Name: JUANITO ESTEVEZ Rep #: [id number] : 1995 Provider: ISAC Hi Age/Sex: 28/F Location: [facility] Status: Signed Intake Vital Signs 04/07/24 13:34 07/15/24 15:47 Height 5 ft 3.5 in 5 ft 3.5 in Weight: 279 lb BMI 48.6 BP 127/81 H Intake Visit Reasons: 12 week f/u cycles 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: No Allergies Penicillins Adverse Reaction (Mild, Verified 07/15/24 15:40) Rash Is last menstrual period known: Yes Last Menstrual Period: 06/29/24 (periods range from lasting only a few days to prolonged periods of bleeding for weeks at a time) Post menopausal: No Patient : No : No PFSH Medical History Pancreatitis Family History Grandmother Breast cancer Aunt Breast cancer Father Myocardial infarction Other Cancer Social History adopted: No household members: significant other housing: house number of children: 0 current occupational status: employed current occupation: [employer] current occupational exposures/hazards: No pets and animals: Yes leisure activities: other history of recent travel: No sexually active: Yes Smoking Status: Never smoker Electronic Cigarette Use: with nicotine alcohol intake: current alcohol intake frequency: holidays/special occasions only substance use type: other caffeine: Yes Type: tea eating out: 1-3 times/week during the past year weight has: remained stable what type of physical activity do you participate in: walking frequency: 3-4 times per week marisol/anabaptism: None seatbelt use: always do you feel safe at home: Yes [facility] 12 week f/u cycles Details: JUANITO ESTEVEZ is a 28 year old who presents for AUB. ER in March; took Megace. Had a bleed for 2 weeks in April; she then had menses May 30-; and then again on Jun 29-. Overall improved. Labwork resulted yesterday indicated elevated TSH; referral for endocrinology placed. Female Reproductive History Last Menstrual Period: 06/29/24 (periods range from lasting only a few days to prolonged periods of bleeding for weeks at a time) History 0 Elective abortions Hx Para Spontaneous abortions Hx # Term Pregnancies Ectopic pregnancies Hx # Pregnancies Multiple births # of living children ROS Const Constitutional: Denies chills, fatigue, fever(s), headache(s) or weight loss Eyes Eyes: Denies change in vision ENT ENT: Denies dizziness Resp Resp: Denies cough GI GI: Denies abdominal pain, constipation or nausea : Denies difficulty voiding, dysuria, hematuria, pelvic pain, prolapse symptoms, urinary incontinence, vaginal discharge, vaginal dryness, vaginal odor or vaginal pruritus Neuro Neuro: Denies dizziness Endo Endo: Denies cold intolerance, excessive sweating or heat intolerance Exam Const General: cooperative, healthy appearing, comfortable, no acute distress, well groomed and well hydrated Nutritional Appearance: well nourished Orientation: alert, awake and oriented x3 Eyes General: appearance normal, both eyes and all related structures Resp Effort Inspection: normal respiratory effort, able to speak in complete sentences and symmetric chest movement Neuro General: patient alert, patient awake, patient oriented x3 and moves all extremities Psych Appearance: grossly normal Mental Status: mental status grossly normal Affect: normal affect Speech and Movement: speech and movement normal Attitude: cooperative Coding Level of Care Code Established Pt Off vis,est,level 3 Patient Type Established Diagnoses Irregular menses N92.6 Hypothyroidism E03.9 Assessment and Plan Assessment and Plan (1) Irregular menses: Status: Acute Comment: x 2 years. Plan: regular since March; continue tracking. If becomes irregular/worsens call office. Not interested in OCP/IUD at this time. Discussed safe sex practices; will call office if she chooses to proceed with treatment. Advised dietary changes and exercise modifications beneficial to a healthy lifestyle. (2) Hypothyroidism: Status: Acute Plan: Referral placed to endocrinology. Follow with their evaluation and recommendations. 07/15/24 1613 Date Nancy Quevedo CONCAVING MACHINE OPERATOR-C Cosigner Signature: Date (if applicable) CC: Normal [facility] Free T3on 07-13-2024 Free T3 [Mass/Vol] 2.8 pg/mL Normal 2.18-3.98 [facility] Comment on above: Performed By: #### L 700.6800, L100.0100 #### [facility] [address] [place], [address] T4 Free Directon 07-13-2024 T4 FREE DIRECT 0.85 ng/dL Normal 0.76-1.46 [facility] Comment on above: Performed By: #### L 700.6800, L100.0100 #### [facility] [address] [place], [address] Thyroid Stim Hormone (TSH)on 07-13-2024 TSH 4.680 uIU/mL High 0.358-3.740 [facility] Comment on above: Performed By: #### L 700.6800, L100.0100 #### [facility] [address] [place], [address] Thyroid Peroxidase ABon 03-23 THYR PEROX AB 13 IU/mL Normal 0-34 [facility] Comment on above: Result Comment: Perf ormed at: - [facility] [id number] Sanitary Landfill Operator: Pito Whitt PhD, Phone: [phone] Performed By: #### L 700.6800, L100.0100 #### [facility] [address] [place], [address] Free T3on 04-08-2024 Free T3 [Mass/Vol] 2.4 pg/mL Normal 2.18-3.98 [facility] Comment on above: Performed By: #### L 700.6800, L100.0100 #### [facility] [address] [place], [address] Assistive Technology Specialist Office Visit Reporton 04-07-2024 Assistive Technology Specialist Office Visit Report [facility]'s [address], [address] [place] [address] OFFICE VISIT Date of Service: 04/07/24 MR#: [id number] Acct: [id number] Name: JUANITO ESTEVEZ Rep #: [id number] : 1995 Provider: ISAC Hi Age/Sex: 28/F Location: [facility] Status: Signed Intake Vital Signs 03/29/24 15:26 04/07/24 13:34 Height 5 ft 3.5 in 5 ft 3.5 in Weight: 279 lb BMI 48.6 BP 127/81 H Intake Visit Reasons: ER F/U Chief Complaint: er f/u 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: No Is patient in pain?: No Allergies Penicillins Adverse Reaction (Mild, Verified 04/07/24 13:32) Rash Medications ???Medication ???Instructions ???Recorded ???Confirmed ???Type nortriptyline 25 mg capsule 25 mg PO DAILY 12/18/23 04/07/24 History megestrol 20 mg tablet 40 mg (2 x 20 mg) PO BID #35 tabs 03/29/24 04/07/24 Rx Is last menstrual period known: Yes Last Menstrual Period: 03/28/24 Post menopausal: No Patient : No : No Control Method: none PFSH Medical History Pancreatitis Family History Grandmother Breast cancer Aunt Breast cancer Father Myocardial infarction Other Cancer Social History adopted: No household members: significant other housing: house number of children: 0 current occupational status: employed current occupation: [employer] current occupational exposures/hazards: No pets and animals: Yes leisure activities: other history of recent travel: No sexually active: Yes Smoking Status: Never smoker Electronic Cigarette Use: with nicotine alcohol intake: current alcohol intake frequency: holidays/special occasions only substance use type: other caffeine: Yes Type: tea eating out: 1-3 times/week during the past year weight has: remained stable what type of physical activity do you participate in: walking frequency: 3-4 times per week marisol/anabaptism: None seatbelt use: always do you feel safe at home: Yes HPI ER F/U Details: JUANITO ESTEVEZ is a 28 year old who presents for ER follow up; was seen in the [place] ER on March 29 for abnormal period/bleeding; reports she was filling an ultra tampon every hour. Switch to pads and was filling super pad every hour; labs reviewed and were stable. Ultrasound completed and stable. She was started on Megace. She reports her bleeding stopped the day of starting megace prior to start. She still started medication. Has not noted any more bleeding since other than brown spotting x 2 days. She reports prior to this she hadn't had a full menses greater than 2 day menses in about 2 years. Female Reproductive History Last Menstrual Period: 03/28/24 Questions: sexually active: Yes, dyspareunia: No and PCB: No History 0 Elective abortions Hx Para Spontaneous abortions Hx # Term Pregnancies Ectopic pregnancies Hx # Pregnancies Multiple births # of living children ROS Const Constitutional: Denies chills, fatigue, fever(s), headache(s) or weight loss Eyes Eyes: Denies change in vision ENT ENT: Denies dizziness Resp Resp: Denies cough GI GI: Denies abdominal pain, constipation or nausea : Denies difficulty voiding, dysuria, hematuria, pelvic pain, prolapse symptoms, urinary incontinence, vaginal discharge, vaginal dryness, vaginal odor or vaginal pruritus Neuro Neuro: Denies dizziness Endo Endo: Denies cold intolerance, excessive sweating or heat intolerance Exam Const General: cooperative, healthy appearing, comfortable, no acute distress, well groomed and well hydrated Nutritional Appearance: well nourished Orientation: alert, awake and oriented x3 HENMT Head: normal to inspection and normocephalic Ears: hearing grossly normal bilaterally and external ears normal Nose: external nose normal Face and sinus: normal facial exam Eyes General: appearance normal, both eyes and all related structures Resp Effort Inspection: normal respiratory effort, able to speak in complete sentences and symmetric chest movement GI Inspection: normal to inspection Palpation: soft and no hepatosplenomegaly General: bladder normal to palpation External Female Exam: normal external appearance and normal appearance of the urethra Urethra: normal appearance of the urethra Speculum Exam - Vagina: normal appearance of the vagina, normal vaginal discharge, no lesions, No vaginal bleeding and nontender Speculum Exam - Cervix: normal appearance of the cervix, no lesions, no masses and other (simple cyst above cervix; nontender, soft. 2cm, round. ) Bimanual Exam- Vagina Uterus: normal bimanual exam, uterine size normal, bladder (more content not included)... Normal [facility] T4 Free Directon 04-07-2024 T4 FREE DIRECT 0.75 ng/dL Low 0.76-1.46 [facility] Comment on above: Performed By: #### L 700.6800, L100.0100 #### [facility] [address] [place], [address] Thyroid Stim Hormone (TSH)on 04-07-2024 TSH 3.750 uIU/mL High 0.358-3.740 [facility] Comment on above: Performed By: #### L 700.6800, L100.0100 #### [facility] [address] [place], [address] CBC W/Diff, Automatedon Absolute Lymph 4.28 X10 3/uL Normal 0.83-4.51 [facility] Comment on above: Performed By: #### L 700.6800, L100.0100 #### [facility] [address] [place], [address] Absolute Neut 7.5 X10 3/uL Normal 2.0-7.7 [facility] Comment on above: Performed By: #### L 700.6800, L100.0100 #### [facility] [address] [place], [address] Basophils/100 WBC (Bld) 0.2 % Normal 0-1 [facility] Comment on above: Performed By: #### L 700.6800, L100.0100 #### [facility] [address] [place], [address] Eosinophils/100 WBC (Bld) 0.7 % Normal 0-5 [facility] Comment on above: Performed By: #### L 700.6800, L100.0100 #### [facility] [address] [place], [address] Erythrocyte distribution width (RBC) [Ratio] 13.8 % Normal 11.6-14.6 [facility] Comment on above: Performed By: #### L 700.6800, L100.0100 #### [facility] [address] [place], [address] Hematocrit (Bld) [Volume fraction] 41.2 % Normal 37-47 [facility] Comment on above: Performed By: #### L 700.6800, L100.0100 #### [facility] [address] [place], [address] Hemoglobin (Bld) [Mass/Vol] 13.2 g/dL Normal 12.0-15.0 [facility] Comment on above: Performed By: #### L 700.6800, L100.0100 #### [facility] [address] [place], [address] IG% 0.400 Normal 0.0-0.9 [facility] Comment on above: Result Comment: IG% - Immature Granulocytes (promyelocytes, myelocytes and metamyelocytes) > 1% indicates that a LEFT SHIFT is Present. Performed By: #### L 700.6800, L100.0100 #### [facility] [address] [place], [address] Lymphocytes/100 WBC (Bld) 34.2 % Normal 19-41 [facility] Comment on above: Performed By: #### L 700.6800, L100.0100 #### [facility] [address] [place], [address] MCH (RBC) [Entitic mass] 26.9 pg Low 27.0-32.0 [facility] Comment on above: Performed By: #### L 700.6800, L100.0100 #### [facility] [address] [place], [address] MCHC (RBC) [Mass/Vol] 32.0 g/dL Normal 32-36 [facility] Comment on above: Performed By: #### L 700.6800, L100.0100 #### [facility] [address] [place], [address] MCV (RBC) [Entitic vol] 83.9 fL Normal 81-99 [facility] Comment on above: Performed By: #### L 700.6800, L100.0100 #### [facility] [address] [place], [address] Monocytes/100 WBC (Bld) 4.8 % Normal 0-10 [facility] Comment on above: Performed By: #### L 700.6800, L100.0100 #### [facility] [address] [place], [address] Neutrophils/100 WBC (Bld) 59.7 % Normal 47-70 [facility] Comment on above: Performed By: #### L 700.6800, L100.0100 #### [facility] [address] [place], [address] Nucleated RBC (Bld) [#/Vol] 0 10*3/uL Normal 0-5 [facility] Comment on above: Performed By: #### L 700.6800, L100.0100 #### [facility] [address] [place], [address] Platelet mean volume (Bld) [Entitic vol] 8.9 fL Normal 6.2-12.0 [facility] Comment on above: Performed By: #### L 700.6800, L100.0100 #### [facility] [address] [place], [address] Platelets (Bld) [#/Vol] 295 10*3/uL Normal 150-450 [facility] Comment on above: Performed By: #### L 700.6800, L100.0100 #### [facility] [address] [place], [address] RBC (Bld) [#/Vol] 4.91 10*6/uL Normal 4.2-5.4 [facility] Comment on above: Performed By: #### L 700.6800, L100.0100 #### [facility] [address] [place], [address] RDW SD 42.5 fl Normal 35.1-43.9 [facility] Comment on above: Performed By: #### L 700.6800, L100.0100 #### [facility] [address] [place], [address] WBC (Bld) [#/Vol] 12.5 10*3/uL High 4.4-11.0 [facility] Comment on above: Performed By: #### L 700.6800, L100.0100 #### [facility] [address] [place], [address] Emergency Department Summary on 03-29-2024 Emergency Department Summary [facility] Medical Records Department [address] [place] [address] Emergency Department Summary 03/29/24 MR#: [id number] Acct: [id number] Name: JUANITO ESTEVEZ Rep #: [id number] : 1995 28 From: Gurjit Rios MD PCP: Dr. Jeffrey Orourke MD Status:REG ER Location: ED HPI HPI - Female History of Present Illness Chief Complaint: Vag Bleeding Detail of Chief Complaint: Vaginal bleeding that started Informant: patient Pain Pain: Positive for Pelvic Pain Onset: Days Context: Sudden Onset Timing: Continuous Quality: Positive for Cramping Location: Suprapubic Current Severity: Mild Maximum Severity: Moderate Worsened by: Movement and Labelle Relieved by: Remaining Still and NSAIDS Bleeding Issue: Positive for Vaginal bleeding; Negative for Passing clots or Passing tissue Associated Symptoms Associated Symptoms: Negative for Dysuria, Frequency, Urgency or Hematuria Test: Positive Sexually: Positive for Active Control: No control Narrative Narrative: Patient is a 28-year-old female. She reports having irregular menses. She has sexually active. She states vaginal bleeding started on . She is using 1 ultra pad per hour. She does endorse intermittent orthostatic lightheadedness. She denies dyspnea or dyspnea on exertion. She denies symptoms of . She does report frequency. She denies flank pain. She does drink endorse low central back pain. She denies history of bleeding disorder or bruising easily. Prior similar symptoms: No Recent Illness/Hospitalizatio n: No PFSH PFSH Medical History Pancreatitis Home Medications ???Medication ???Instructions ???Recorded ???Last Taken ???Type nortriptyline 25 mg capsule 25 mg PO DAILY 12/18/23 Unknown History megestrol 20 mg tablet 40 mg (2 x 20 mg) PO BID #35 tabs 03/29/24 Unknown Rx Allergy/AdvReac Type Severity Reaction Status Date / Time Penicillins AdvReac Mild Rash Verified 03/29/24 15:29 Family History Grandmother Breast cancer Aunt Breast cancer Father Myocardial infarction Other Cancer Social History adopted: No household members: significant other housing: house number of children: 0 current occupational status: employed current occupation: [employer] current occupational exposures/hazards: No pets and animals: Yes leisure activities: other history of recent travel: No sexually active: Yes Smoking Status: Never smoker Electronic Cigarette Use: with nicotine alcohol intake: current alcohol intake frequency: holidays/special occasions only substance use type: other caffeine: Yes Type: tea eating out: 1-3 times/week during the past year weight has: remained stable what type of physical activity do you participate in: walking frequency: 3-4 times per week marisol/anabaptism: None seatbelt use: always do you feel safe at home: Yes ROS ROS ED Constitutional Constitutional ED: Reports chills; Denies fever(s) or subjective Eyes Eyes: Denies blurry vision, change in vision or diplopia ENT ENT ED: Denies ear pain or rhinorrhea Cardiovascular Cardiovascular: Denies chest pain or palpitations Respiratory/Chest Respiratory/Chest: Denies cough, dyspnea or dyspnea on exertion Gastrointestinal Gastrointestinal: Reports abdominal pain and other Details: Midline suprapubic discomfort. ; Denies constipation, diarrhea, melena, nausea or vomiting Genitourinary Genitourinary ED: Denies dysuria, hematuria or urinary frequency Musculoskeletal Musculoskeletal: Denies arthralgias, myalgias or neck pain Integumentary Denies rash Neurologic Neurologic: Denies headache(s) or paresthesias Hematologic/Lymphatic Hematologic/Lymphatic: Denies easy bleeding or easy bruising EXAM Physical Exam Const Vital Signs: 03/29/24 15:26 03/29/24 17:31 03/29/24 17:32 Temperature 97.5 F L Temperature Source Temporal Pulse Rate 114 H 85 Pulse Rate [Lying] 94 Pulse Rate [Sitting (for 1 minute prior to obtaining)] 86 Pulse Rate [Standing (for 1 minute prior to obtaining)] 80 Respiratory Rate 18 16 Blood Pressure 152/108 H 110/63 Blood Pressure [Lying] 148/133 H Blood Pressure [Sitting (for 1 minute prior to obtaining)] 111/65 Blood Pressure [Standing (for 1 minute prior to obtaining)] 114/70 Blood Pressure Mean 122 78 Blood Pressure Mean [Lying] 138 Blood Pressure Mean [Sitting (for 1 minute prior to obtaining)] 80 Blood Pressure Mean [Standing (for 1 minute prior to obtaining)] 84 Pulse Ox 99 Oxygen Delivery Method Room Air Positive well nourished and well developed General Appearance ED: well d (more content not included)... Normal [place] [facility] ,Serum,hCG Quali.on 03-29-2024 HCG, SERUM QUAL Negative Normal [facility] Comment on above: Performed By: #### L 700.6800, L100.0100 #### [facility] [address] [place], [address] Transvaginal Non-on 03-29-2024 Transvaginal Non- [facility] Services [address] [place] [address] Transvaginal Non- MR#: [id number] Acct: [id number] Name: JUANITO ESTEVEZ Rep #: [id number] : 1995 F 28 From: Joce alexandre MD PCP: Dr. Jeffrey Orourke MD Status: [facility] Study: Transvaginal Non- Date of Exam: Exam# [id number] Ordering Dr: Gurjit Rios [place] [id number] STUDY: ULTRASOUND TRANSVAGINAL CLINICAL: Female, 28 years old. Abnormal vaginal bleeding and pelvic pain TECHNIQUE: Transvaginal COMPARISON: None. FINDINGS: Normal uterine size measuring 6.7 x 4.6 x 3.8 cm in maximal craniocaudal dimension. There are no myometrial masses. Normal endometrial thickness measuring 5.4 mm. There are no endometrial masses, and there is no fluid in the endometrial cavity. Normal uterine cervix. Normal right ovary, measuring 3.8 x 2.2 x 2.8 cm. There are multiple follicles without a dominant cyst. Normal blood flow. Normal left ovary, measuring 2.8 x 1.9 x 1.7 cm. There are multiple follicles without a dominant cyst. Normal blood flow. There is no free fluid in the pelvis. Polycystic ovary disease: No. US/Transvaginal Non- IMPRESSION: No definite acute or significant abnormality seen. Electronically Signed: Joce Martin MD at 19:07 EDT , CC: Dr. Jeffrey Orourke MD; Dr. Gurjit Rios MD Flatwork Washer: Signed Normal [facility] Absolute lymphocyte countOrd ered By: Nunu Denson on 02-12-2023 Lymphocytes Auto (Unsp spec) [#/Vol] 4.64 10*3/uL 0.83-4.51 [facility] Basophil percentageOrdered B y: Nunu Denson on 02-12-2023 Basophils/100 WBC (Bld) 0.2 % 0-1 [facility] Eosinophils/100 WBC (Bld) 0.6 % 0-5 [facility] Neutrophils (Bld) [#/Vol] 7.0 10*3/uL 2.0-7.7 [facility] Neutrophils/100 WBC (Bld) 56.7 % 47-70 [facility] WBC (Bld) [#/Vol] 12.3 10*3/uL 4.4-11.0 [facility] Blood erythrocytes count (nu mber/volume)Ordered By: Nunu Denson on 02-12-2023 RBC (Bld) [#/Vol] 5.10 10*6/uL 4.2-5.4 [facility] Blood hemoglobin measurement (mass/volume)Ordered By: Nunu Denson on 02-12-2023 Hemoglobin (Bld) [Mass/Vol] 13.2 g/dL 12.0-15.0 [facility] Blood lymphocytes/100 leukoc ytesOrdered By: Nunu Denson on 02-12-2023 Lymphocytes/100 WBC (Bld) 37.6 % 19-41 [facility] Blood monocytes/100 leukocyt esOrdered By: Nunu Denson on 02-12-2023 Monocytes/100 WBC (Bld) 4.5 % 0-10 [facility] Blood platelet mean volumeOr dered By: Nunu Denson on 02-12-2023 Platelet mean volume (Bld) [Entitic vol] 9.4 fL 6.2-12.0 [facility] Determination of erythrocyte mean corpuscular volume (MCV)Ordered By: Nunu Denson on 02-12-2023 MCV (RBC) [Entitic vol] 83.7 fL 81-99 [facility] Hematocrit Auto (Bld) [Volum e fraction]Ordered By: Nunu Denson on 02-12-2023 Hematocrit (Bld) [Volume fraction] 42.7 % 37-47 [facility] Laboratory - Hematology and Cell countsOrdered By: Nunu Denson on 02-12-2023 Erythrocyte distribution width (RBC) [Entitic vol] 42.5 fL 35.1-43.9 [facility] Erythrocyte distribution width (RBC) [Ratio] 13.9 % 11.6-14.6 [facility] Immature granulocytes/100 WBC (Bld) 0.400 % 0.0-0.9 [facility] Comment on above: IG% - Immature Granu locytes (promyelocytes, myelocytes and metamyelocytes) > 1% indicates that a LEFT SHIFT is Present. MCH (RBC) [Entitic mass] 25.9 pg 27.0-32.0 [facility] Nucleated RBC/100 WBC (Bld) [Ratio] 0 % 0-5 [facility] MCHC Auto (RBC) [Mass/Vol]Or dered By: Nunu Denson on 02-12-2023 MCHC (RBC) [Mass/Vol] 30.9 g/dL 32-36 [facility] Platelets bldOrdered By: Daniela Denson on 02-12-2023 Platelets (Bld) [#/Vol] 344 10*3/uL 150-450 [facility] Absolute lymphocyte countOrd ered By: Nunu Denson on 02-06-2023 Lymphocytes Auto (Unsp spec) [#/Vol] 5.15 10*3/uL 0.83-4.51 [facility] Basophil percentageOrdered B y: Nunu Denson on 02-06-2023 Basophils/100 WBC (Bld) 0.3 % 0-1 [facility] Bilirubin [Mass/Vol] 0.20 mg/dL 0.20-1.00 [facility] Comment on above: For patients on eltr ombopag therapy, use of Dimension [place] TBIL is not recommended. Chloride [Moles/Vol] 104 mmol/L 98-107 [facility] Eosinophils/100 WBC (Bld) 1.0 % 0-5 [facility] Glucose [Mass/Vol] 81 mg/dL 74-106 [facility] Neutrophils (Bld) [#/Vol] 8.7 10*3/uL 2.0-7.7 [facility] Neutrophils/100 WBC (Bld) 59.0 % 47-70 [facility] Potassium [Moles/Vol] 4.0 mmol/L 3.5-5.1 [facility] Protein [Mass/Vol] 7.8 g/dL 6.4-8.2 [facility] Sodium [Moles/Vol] 139 mmol/L 136-145 [facility] WBC (Bld) [#/Vol] 14.7 10*3/uL 4.4-11.0 [facility] Blood erythrocytes count (nu mber/volume)Ordered By: Nunu Denson on 02-06-2023 RBC (Bld) [#/Vol] 5.19 10*6/uL 4.2-5.4 [facility] Blood hemoglobin measurement (mass/volume)Ordered By: Nunu Denson on 02-06-2023 Hemoglobin (Bld) [Mass/Vol] 13.8 g/dL 12.0-15.0 [facility] Blood lymphocytes/100 leukoc ytesOrdered By: Nunu Denson on 02-06-2023 Lymphocytes/100 WBC (Bld) 35.0 % 19-41 [facility] Blood manual differential co mment interpretation (narrative result)Ordered By: Nunu Denson on 02-06-2023 Manual differential comment Nito (Bld) [Interp] SEE COMMENT [facility] Comment on above: LYMPHOCYTOSIS NOTED Blood monocytes/100 leukocyt esOrdered By: Nunu Denson on 02-06-2023 Monocytes/100 WBC (Bld) 4.2 % 0-10 [facility] Blood platelet adequacy dete ction by light microscopyOrdered By: Nunu Denson on 02-06-2023 Platelets LM Ql (Bld) ADEQUATE ADEQ [facility] Blood platelet mean volumeOr dered By: Nunu Denson on 02-06-2023 Platelet mean volume (Bld) [Entitic vol] 9.1 fL 6.2-12.0 [facility] Determination of erythrocyte mean corpuscular volume (MCV)Ordered By: Nunu Denson on 02-06-2023 MCV (RBC) [Entitic vol] 85.7 fL 81-99 [facility] Hematocrit Auto (Bld) [Volum e fraction]Ordered By: Nunu Denson on 02-06-2023 Hematocrit (Bld) [Volume fraction] 44.5 % 37-47 [facility] Laboratory - Chemistry and C hemistry - challengeOrdered By: Nunu Denson on 02-06-2023 ALP [Catalytic activity/Vol] 33 U/L 45-117 [facility] ALT [Catalytic activity/Vol] 27 U/L 13-56 [facility] CO2 [Moles/Vol] 27.0 mmol/L 21.0-32.0 [facility] Globulin (S) [Mass/Vol] 4.0 g/dL 2.2-4.2 [facility] Urea nitrogen/Creatinine [Mass ratio] 16.2 mg/mg 10-20 [facility] Laboratory - Hematology and Cell countsOrdered By: Nunu Denson on 02-06-2023 Erythrocyte distribution width (RBC) [Entitic vol] 43.2 fL 35.1-43.9 [facility] Erythrocyte distribution width (RBC) [Ratio] 13.9 % 11.6-14.6 [facility] Immature granulocytes/100 WBC (Bld) 0.500 % 0.0-0.9 [facility] Comment on above: IG% - Immature Granu locytes (promyelocytes, myelocytes and metamyelocytes) > 1% indicates that a LEFT SHIFT is Present. MCH (RBC) [Entitic mass] 26.6 pg 27.0-32.0 [facility] Nucleated RBC/100 WBC (Bld) [Ratio] 0 % 0-5 [facility] MCHC Auto (RBC) [Mass/Vol]Or dered By: Nunu Denson on 02-06-2023 MCHC (RBC) [Mass/Vol] 31.0 g/dL 32-36 [facility] No Panel InformationOrdered By: Nunu Denson on 02-06-2023 Estimated GFR (MDRD) Amer 110 mL/min >60 [facility] Comment on above: GFR Calc Estimated GFR (MDRD) Non-Af Amer 91 mL/min >60 [facility] Comment on above: Non- GFR Calc Platelets bldOrdered By: Daniela Denson on 02-06-2023 Platelets (Bld) [#/Vol] 361 10*3/uL 150-450 [facility] RBC morphologyOrdered By: Duke Denson on 02-06-2023 RBC morphology finding Nom (Bld) NORM C+C NORMAL NORM C&C [facility] Serum or plasma albumin maurice urement (mass/volume)Ordered By: Nunu Denson on 02-06-2023 Albumin [Mass/Vol] 3.8 g/dL 3.2-5.0 [facility] Serum or plasma albumin/glob ulin mass ratioOrdered By: Nunu Denson on 02-06-2023 Albumin/Globulin [Mass ratio] 1.0 {ratio} 0.9-2.4 [facility] Serum or plasma calcium maurice urement (mass/volume)Ordered By: Nunu Denson on 02-06-2023 Calcium [Mass/Vol] 9.5 mg/dL 8.5-10.1 [facility] Serum or plasma creatinine m easurement (mass/volume)Ordered By: Nunu Denson on 02-06-2023 Creatinine [Mass/Vol] 0.80 mg/dL 0.55-1.02 [facility] Comment on above: The validity of the calculated GFR & GFRAA in patients over 70 years has not been determined. Clinical correlation is essential. Serum or plasma urea nitroge n measurement (mass/volume)Ordered By: Nunu Denson on 02-06-2023 Urea nitrogen [Mass/Vol] 13 mg/dL 7-18 [facility] Thin prep Papanicolaou smear with manual screeningOrdered By: Nunu Denson on 02-06-2023 Thin prep Papanicolaou smear with manual screening 17 U/L 15-37 [facility] Thin prep Papanicolaou smear with manual screening 8 5-15 [facility] Basophil percentageon 2021 Chloride [Moles/Vol] 106 mmol/L 98-107 [facility] Work Phone: Cholesterol [Mass/Vol] 178 mg/dL <200 [facility] Work Phone: Comment on above: <200 mg/dL Desirable 200-240 mg/dL Borderline >240 mg/dL High Risk Glucose [Mass/Vol] 75 mg/dL 74-106 [facility] Work Phone: Potassium [Moles/Vol] 3.9 mmol/L 3.5-5.1 [facility] Work Phone: Sodium [Moles/Vol] 138 mmol/L 136-145 [facility] Work Phone: Triglyceride [Mass/Vol] 240 mg/dL [facility] Work Phone: Comment on above: The drugs N-Acetylcy steine and Metamizole may falsely depress this assay.Serum Triglycerides Reference Interval Normal <150 mg/dL Borderline high 150 - 199 mg/dL High 200 - 499 mg/dL Very High > or = 500 mg/dL Laboratory - Chemistry and C hemistry - challengeon 09-28-2021 CO2 [Moles/Vol] 27.0 mmol/L 21.0-32.0 [facility] Work Phone: Urea nitrogen/Creatinine [Mass ratio] 18.4 mg/mg 10-20 [facility] Work Phone: No Panel Informationon 09-28 Estimated GFR (MDRD) Amer 129 mL/min >60 [facility] Work Phone: Comment on above: GFR Calc Estimated GFR (MDRD) Non-Af Amer 107 mL/min >60 [facility] Work Phone: Comment on above: Non- GFR Calc Vitamin D 25-Hydroxy 40.2 ng/mL [facility] Work Phone: Comment on above: Vitamin D 25(OH) Sta tus Range Deficiency <20 ng/mL (50nmol/L) Insufficiency 20 - 30 ng/mL (50 - 75 nmol/L) Sufficiency 30 - 100 ng/mL (75 - 250 nmol/L) Toxicity >100 ng/mL (>250 nmol/L) Serum or plasma calcium maurice urement (mass/volume)on 09-28-2021 Calcium [Mass/Vol] 9.1 mg/dL 8.5-10.1 [facility] Work Phone: Serum or plasma cholesterol in HDL measurement (mass/volume)on 09-28-2021 Cholesterol in HDL [Mass/Vol] 47 mg/dL [facility] Work Phone: Comment on above: The drugs N-Acetylcy steine and Metamizole may falsely depress this assay. Reference Range HDL <40 mg/dL Low HDL Cholesterol HDL >or= 60 mg/dL High HDL Cholesterol Serum or plasma cholesterol in VLDL measurement (mass/volume)on 09-28-2021 Cholesterol in VLDL [Mass/Vol] 48 mg/dL 5-40 [facility] Work Phone: Serum or plasma creatinine m easurement (mass/volume)on 09-28-2021 Creatinine [Mass/Vol] 0.71 mg/dL 0.55-1.02 [facility] Work Phone: Comment on above: The validity of the calculated GFR & GFRAA in patients over 70 years has not been determined. Clinical correlation is essential. 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 This test was developed and its performance characteristics determined by [facility] [place]. This test has been authorized by FDA under an Emergency Use Authorization (EUA). This test has been validated in accordance with the FDA's Guidance Document Policy for Diagnostics Testing in Laboratories Certified to Perform High Complexity Testing under CLIA prior to Emergency use Authorization for Coronavirus Disease 2019 during the Public Health Emergency issued on August 21, 2019. Performed By: [facility] [address] [place] [address] Sanitary Landfill Operator: Felipe Aceves III, M.D. 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 There is no focal hepatic mass or intrahepatic biliary dilatation. Common duct derick hepatis 4 mm. Gallbladder is adequately distended. There are no mobile shadowing stones or focal gallbladder wall abnormalities. Pancreatic visualization is limited. There are no epigastric fluid collections. RIGHT kidney 12 x 5.2 x 5.2 cm is felt to be normal. Visualized IVC is normal caliber. No RIGHT upper quadrant ascites. IMPRESSION: Limited visualization of pancreas due to interfering intestinal content. Otherwise, no acute abnormality. Interpreted By: Gildardo Jay MD Preliminary Report By: Gildardo Jay MD Electronically Signed By: Gildardo Jay MD Dictated Date: 12/31/2018 8:21:36 AM Prelim Date: 12/31/2018 8:21:36 AM Sign Date: 12/31/2018 8:24:03 AM Normal [facility] ([place]) .Auto Diffon 11-11-2018 Ammonia (P) [Mass/Vol] 0.70 10 3/mcL Normal 0.15-1.00 [facility] ([place]) Comment on above: Performed By: #### U Zenon UAMICAO #### [place] [address] #### PREGU #### [address] [address] Basophils (Bld) [#/Vol] 0.10 10 3/mcL Normal 0.00-0.19 [facility] ([place]) Comment on above: Performed By: #### U Zenon UAMICAO #### [place] [address] #### PREGU #### [address] [address] Basophils/100 WBC (Bld) 0.5 % Normal 0.0-2.5 [facility] ([place]) Comment on above: Performed By: #### U Zenon UAMICAO #### [place] [address] #### PREGU #### [address] [address] Eosinophils (Bld) [#/Vol] 0.30 10 3/mcL Normal 0.00-0.40 [facility] ([place]) Comment on above: Performed By: #### U A UAMICAO #### [place] [address] #### PREGU #### [address] [address] Eosinophils/100 WBC (Bld) 2.8 % Normal 0.0-7.0 [facility] ([place]) Comment on above: Performed By: #### U A, UAMICAO #### [place] [address] #### PREGU #### [address] [address] Lymphocytes (Bld) [#/Vol] 3.90 10 3/mcL High 0.77-3.85 [facility] ([place]) Comment on above: Performed By: #### U A, UAMICAO #### [place] [address] #### PREGU #### [address] [address] Lymphocytes/100 WBC (Bld) 36.4 % Normal 10.0-50.0 [facility] ([place]) Comment on above: Performed By: #### U A, UAMICAO #### [place] [address] #### PREGU #### [address] [address] Monocytes/100 WBC (Bld) 6.1 % Normal 1.7-13.0 [facility] ([place]) Comment on above: Performed By: #### U A, UAMICAO #### [place] [address] #### PREGU #### [address] [address] Neutrophils/100 WBC (Bld) 54.2 % Normal 37.0-80.0 [facility] ([place]) Comment on above: Performed By: #### U A, UAMICAO #### [place] [address] #### PREGU #### [address] [address] .GFRon 11-11-2018 GFR Non- 110 ml/min/1.73sqm Normal [facility] ([place]) Comment on above: Result Comment: GFR Population mean for , Non- Americans Ages 20-29 = 116 mL/min/1.73 sq.m. Ages 30-39 = 107 mL/min/1.73 sq.m. Ages 40-49 = 99 mL/min/1.73 sq.m. Ages 50-59 = 93 mL/min/1.73 sq.m. Ages 60-69 = 85 mL/min/1.73 sq.m. Ages 70+ = 75 mL/min/1.73 sq.m. Chronic Kidney Disease: Less than 60 mL/min/1.73 square meters End Stage Renal Disease: Less than 15 mL/min/1.73 square meters Performed By: #### U A, UAMICAO #### [place] [address] #### PREGU #### [address] [address] GFR 133 ml/min/1.73sqm Normal [facility] ([place]) Comment on above: Result Comment: GFR Population mean for , Non- Americans Ages 20-29 = 116 mL/min/1.73 sq.m. Ages 30-39 = 107 mL/min/1.73 sq.m. Ages 40-49 = 99 mL/min/1.73 sq.m. Ages 50-59 = 93 mL/min/1.73 sq.m. Ages 60-69 = 85 mL/min/1.73 sq.m. Ages 70+ = 75 mL/min/1.73 sq.m. Chronic Kidney Disease: Less than 60 mL/min/1.73 square meters End Stage Renal Disease: Less than 15 mL/min/1.73 square meters Performed By: #### U A, UAMICAO #### [place] [address] #### PREGU #### [address] [address] .NEUABSon 11-11-2018 Neutrophils (Bld) [#/Vol] 5.90 10 3/mcL Normal 2.85-6.16 [facility] ([place]) Comment on above: Performed By: #### U A, UAMICAO #### [place] [address] #### PREGU #### [address] [address] [facility] Calcium [Mass/Vol] 8.7 mg/dL Normal 8.4-10.2 [facility] ([place]) Comment on above: Performed By: #### U A, UAMICAO #### [place] [address] #### PREGU #### [address] [address] Chloride [Moles/Vol] 104 mmol/L Normal 98-107 [facility] ([place]) Comment on above: Performed By: #### U A, UAMICAO #### [place] [address] #### PREGU #### [address] [address] CO2 [Moles/Vol] 28 mmol/L Normal 22-29 [facility] ([place]) Comment on above: Performed By: #### U A, UAMICAO #### [place] [address] #### PREGU #### [address] [address] Creatinine [Mass/Vol] 0.67 mg/dL Normal 0.55-1.02 [facility] 1928–[facility] ([place]) Comment on above: Performed By: #### U A, UAMICAO #### [place] [address] #### PREGU #### [address] [address] Electrolyte Balance 8.0 mEq/L Normal [facility] ([place]) Comment on above: Performed By: #### U A, UAMICAO #### [place] [address] #### PREGU #### [address] [address] Glucose [Mass/Vol] 84 mg/dL Normal 70-105 [facility] ([place]) Comment on above: Performed By: #### U A, UAMICAO #### [place] [address] #### PREGU #### [address] [address] Potassium [Moles/Vol] 3.8 mmol/L Normal 3.5-5.1 [facility] ([place] Comment on above: Performed By: #### U A, UAMICAO #### [place] [address] #### PREGU #### [address] [address] Sodium [Moles/Vol] 140 mmol/L Normal 136-145 [facility] ([place]) Comment on above: Performed By: #### U A, UAMICAO #### [place] [address] #### PREGU #### [address] [address] Urea nitrogen [Mass/Vol] 6 mg/dL Low 7-18 [facility] ([place] Comment on above: Performed By: #### U A, UAMICAO #### [place] [address] #### PREGU #### [address] [address] Urea nitrogen/Creatinine [Mass ratio] 9 ratio Normal 7-27 [facility] ([place] Comment on above: Performed By: #### U A, UAMICAO #### [place] [address] #### PREGU #### [address] [address] CBCon 11-11-2018 Erythrocyte distribution width (RBC) [Ratio] 14.4 % Normal 11.5-14.5 [facility] ([place] Comment on above: Performed By: #### U A, UAMICAO #### [place] [address] #### PREGU #### [address] [address] Hematocrit (Bld) [Volume fraction] 33.5 % Low 37.0-47.0 [facility] ([place] Comment on above: Performed By: #### Jaci Yarbrough UAMICAO #### [place] [address] #### PREGU #### [address] [address] Hemoglobin (Bld) [Mass/Vol] 11.3 G/dL Low 12.0-16.0 [facility] ([place] Comment on above: Performed By: #### Jaci Yarbrough UAMICAO #### [place] [address] #### PREGU #### [address] [address] MCH (RBC) [Entitic mass] 26.8 pg Low 27.0-31.2 [facility] ([place] Comment on above: Performed By: #### Jaci Yarbrough UAMICAO #### [place] [address] #### PREGU #### [address] [address] MCHC (RBC) [Mass/Vol] 33.6 G/dL Normal 33.0-37.0 [facility] ([place] Comment on above: Performed By: #### Jaci Yarbrough UAMICAO #### [place] [address] #### PREGU #### [address] [address] MCV (RBC) [Entitic vol] 79.8 fL Low 80.0-94.0 [facility] ([place] Comment on above: Performed By: #### Jaci Yarbrough UAMICAO #### [place] [address] #### PREGU #### [address] [address] Platelet mean volume (Bld) [Entitic vol] 7.0 fL Low 7.4-10.4 [facility] ([place] Comment on above: Performed By: #### Jaci Yarbrough UAMICAO #### [place] [address] #### PREGU #### [address] [address] Platelets (Bld) [#/Vol] 293 10 3/mcL Normal 130-400 [facility] ([place] Comment on above: Performed By: #### Jaci Yarbrough UAMICAO #### [place] [address] #### PREGU #### [address] [address] RBC (Bld) [#/Vol] 4.20 10 6/mcL Normal 4.20-5.40 [facility] ([place] Comment on above: Performed By: #### Jaci Yarbrough UAMICAO #### [place] [address] #### PREGU #### [address] [address] WBC (Bld) [#/Vol] 10.80 10 3/mcL Normal 4.60-10.80 [facility] ([place] Comment on above: Performed By: #### Jaci Yarbrough UAMICAO #### [place] [address] #### PREGU #### [address] [address] .Auto Diffon 11-10-2018 Ammonia (P) [Mass/Vol] 0.80 10 3/mcL Normal 0.15-1.00 [facility] ([place]) Comment on above: Performed By: #### U Zenon UAMICAO #### [place] [address] #### PREGU #### [address] [address] Basophils (Bld) [#/Vol] 0.10 10 3/mcL Normal 0.00-0.19 [facility] ([place] Comment on above: Performed By: #### Jaci Yarbrough UAMICAO #### [place] [address] #### PREGU #### [address] [address] Basophils/100 WBC (Bld) 0.8 % Normal 0.0-2.5 [facility] ([place] Comment on above: Performed By: #### U Zenon UAMICAO #### [place] [address] #### PREGU #### [address] [address] Eosinophils (Bld) [#/Vol] 0.20 10 3/mcL Normal 0.00-0.40 [facility] ([place]) Comment on above: Performed By: #### Jaci Yarbrough UAMICAO #### [place] [address] #### PREGU #### [address] [address] Eosinophils/100 WBC (Bld) 1.8 % Normal 0.0-7.0 [facility] ([place]) Comment on above: Performed By: #### Jaci Yarbrough UAMICAO #### [place] [address] #### PREGU #### [address] [address] Lymphocytes (Bld) [#/Vol] 4.60 10 3/mcL High 0.77-3.85 [facility] ([place]) Comment on above: Performed By: #### Jaci Yarbrough UAMICAO #### [place] [address] #### PREGU #### [address] [address] Lymphocytes/100 WBC (Bld) 33.1 % Normal 10.0-50.0 [facility] ([place]) Comment on above: Performed By: #### U Zenon UAMICAO #### [place] [address] #### PREGU #### [address] [address] Monocytes/100 WBC (Bld) 5.6 % Normal 1.7-13.0 [facility] ([place] Comment on above: Performed By: #### U A, UAMICAO #### [address] [address] #### PREGU #### [address] [address] Neutrophils/100 WBC (Bld) 58.7 % Normal 37.0-80.0 [facility] ([place] Comment on above: Performed By: #### U A, UAMICAO #### [address] [address] #### PREGU #### [address] [address] .GFRon 11-10-2018 GFR 143 ml/min/1.73sqm Normal [facility] ([place] Comment on above: Result Comment: GFR Population mean for , Non- Americans Ages 20-29 = 116 mL/min/1.73 sq.m. Ages 30-39 = 107 mL/min/1.73 sq.m. Ages 40-49 = 99 mL/min/1.73 sq.m. Ages 50-59 = 93 mL/min/1.73 sq.m. Ages 60-69 = 85 mL/min/1.73 sq.m. Ages 70+ = 75 mL/min/1.73 sq.m. Chronic Kidney Disease: Less than 60 mL/min/1.73 square meters End Stage Renal Disease: Less than 15 mL/min/1.73 square meters Performed By: #### U A, UAMICAO #### [address] [address] #### PREGU #### [address] [address] GFR Non- 118 ml/min/1.73sqm Normal [facility] ([place]) Comment on above: Result Comment: GFR Population mean for , Non- Americans Ages 20-29 = 116 mL/min/1.73 sq.m. Ages 30-39 = 107 mL/min/1.73 sq.m. Ages 40-49 = 99 mL/min/1.73 sq.m. Ages 50-59 = 93 mL/min/1.73 sq.m. Ages 60-69 = 85 mL/min/1.73 sq.m. Ages 70+ = 75 mL/min/1.73 sq.m. Chronic Kidney Disease: Less than 60 mL/min/1.73 square meters End Stage Renal Disease: Less than 15 mL/min/1.73 square meters Performed By: #### U Zenon UAMICAO #### [place] [address] #### PREGU #### [place] [address] .NEUABSon 11-10-2018 Neutrophils (Bld) [#/Vol] 8.10 10 3/mcL High 2.85-6.16 [facility] ([place] Comment on above: Performed By: #### Jaci Yarbrough UAMICAO #### [place] [address] #### PREGU #### [place] [address] CBCon 11-10-2018 Erythrocyte distribution width (RBC) [Ratio] 14.6 % High 11.5-14.5 [facility] ([place] Comment on above: Performed By: #### Jaci Yarbrough UAMICAO #### [place] [address] #### PREGU #### [place] [address] Hematocrit (Bld) [Volume fraction] 34.6 % Low 37.0-47.0 [facility] ([place] Comment on above: Performed By: #### U Zenon UAMICAO #### [place] [address] #### PREGU #### [place] [id number] Hemoglobin (Bld) [Mass/Vol] 11.3 G/dL Low 12.0-16.0 [facility] ([place] Comment on above: Performed By: #### U Zenon UAMICAO #### [place] [address] #### PREGU #### [address] [address] MCH (RBC) [Entitic mass] 26.0 pg Low 27.0-31.2 [facility] ([place] Comment on above: Performed By: #### U Zenon UAMICAO #### [place] [address] #### PREGU #### [address] [address] MCHC (RBC) [Mass/Vol] 32.8 G/dL Low 33.0-37.0 [facility] ([place] Comment on above: Performed By: #### Jaci Yarbrough UAMICAO #### [place] [address] #### PREGU #### [address] [address] MCV (RBC) [Entitic vol] 79.4 fL Low 80.0-94.0 [facility] ([place] Comment on above: Performed By: #### Jaci Yarbrough UAMICAO #### [place] [address] #### PREGU #### [address] [address] Platelet mean volume (Bld) [Entitic vol] 6.9 fL Low 7.4-10.4 [facility] ([place]) Comment on above: Performed By: #### U Zenon UAMICAO #### [place] [address] #### PREGU #### [address] [address] Platelets (Bld) [#/Vol] 298 10 3/mcL Normal 130-400 [facility] ([place]) Comment on above: Performed By: #### U Zenon UAMICAO #### [place] [address] #### PREGU #### [address] [address] RBC (Bld) [#/Vol] 4.35 10 6/mcL Normal 4.20-5.40 [facility], later [facility] ([place]) Comment on above: Performed By: #### Jaci Yarbrough UAMICAO #### [place] [address] #### PREGU #### [address] [address] WBC (Bld) [#/Vol] 13.80 10 3/mcL High 4.60-10.80 Formerly [facility], [facility]–[place] ([place] Comment on above: Performed By: #### Jaci Yarbrough UAMICAO #### [place] [address] #### PREGU #### [address] [address] CMPon 11-10-2018 Albumin [Mass/Vol] 2.8 G/dL Low 3.5-5.0 [facility] ([place]) Comment on above: Performed By: #### Jaci Yarbrough UAMICAO #### [place] [address] #### PREGU #### [address] [address] Albumin/Globulin [Mass ratio] 0.8 {ratio} Low 1.1-2.5 [facility] ([place] Comment on above: Performed By: #### Jaci Yarbrough UAMICAO #### [place] [address] #### PREGU #### [address] [address] ALP [Catalytic activity/Vol] 24 U/L Low 40-135 [facility] ([place] Comment on above: Performed By: #### Jaci Yarbrough UAMICAO #### [place] [address] #### PREGU #### [address] [address] ALT [Catalytic activity/Vol] 22 U/L Normal 10-35 [facility] ([place] Comment on above: Performed By: #### U A, UAMICAO #### [place] [address] #### PREGU #### [address] [address] AST [Catalytic activity/Vol] 15 U/L Normal 10-40 [facility] ([place] Comment on above: Performed By: #### U A, UAMICAO #### [place] [address] #### PREGU #### [address] [address] Bili Total 0.4 mg/dL Normal 0.2-1.0 [facility] ([place] Comment on above: Performed By: #### U A, UAMICAO #### [place] [address] #### PREGU #### [address] [address] Calcium [Mass/Vol] 8.7 mg/dL Normal 8.4-10.2 [facility] ([place]) Comment on above: Performed By: #### U A, UAMICAO #### [place] [address] #### PREGU #### [address] [address] Chloride [Moles/Vol] 105 mmol/L Normal 98-107 [facility] ([place] Comment on above: Performed By: #### U A, UAMICAO #### [place] [address] #### PREGU #### [address] [address] CO2 [Moles/Vol] 27 mmol/L Normal 22-29 [facility] ([place] Comment on above: Performed By: #### U A, UAMICAO #### [place] [address] #### PREGU #### [address] [address] Creatinine [Mass/Vol] 0.63 mg/dL Normal 0.55-1.02 [facility]ly [facility], [facility] ([place] Comment on above: Performed By: #### U A, UAMICAO #### [place] [address] #### PREGU #### [address] [address] Electrolyte Balance 8.0 mEq/L Normal [facility] ([place]) Comment on above: Performed By: #### U A, UAMICAO #### [place] [address] #### PREGU #### [address] [address] Globulin (S) [Mass/Vol] 3.3 G/dL Normal [facility] ([place] Comment on above: Performed By: #### U A, UAMICAO #### [place] [address] #### PREGU #### [address] [address] Glucose [Mass/Vol] 87 mg/dL Normal 70-105 [facility] ([place]) Comment on above: Performed By: #### U A, UAMICAO #### [place] [address] #### PREGU #### [address] [address] Potassium [Moles/Vol] 4.1 mmol/L Normal 3.5-5.1 [facility]ly [facility], [facility] ([place] Comment on above: Performed By: #### U A, UAMICAO #### [place] [address] #### PREGU #### [address] [address] Protein [Mass/Vol] 6.1 G/dL Low 6.4-8.2 [facility] ([place]) Comment on above: Performed By: #### U A, UAMICAO #### [address] [address] #### PREGU #### [address] [address] Sodium [Moles/Vol] 140 mmol/L Normal 136-145 [facility] ([place] Comment on above: Performed By: #### U A UAMICAO #### [address] [address] #### PREGU #### [address] [address] Urea nitrogen [Mass/Vol] 8 mg/dL Normal 7-18 [facility] ([place] Comment on above: Performed By: #### U A, UAMICAO #### [address] [address] #### PREGU #### [address] [address] Urea nitrogen/Creatinine [Mass ratio] 13 ratio Normal 7-27 [facility] ([place] Comment on above: Performed By: #### U A, UAMICAO #### [address] [address] #### PREGU #### [address] [address] [address] ABD/PELVIS W/ IV CONTRAST ONLYon 11-09-2018 CT ABD/PELVIS W/ IV CONTRAST ONLY ORIGINAL CT ABD/PELVIS W/ IV CONTRAST ONLY CLINICAL STATEMENT: Epigastric abdominal pain for one week. Leukocytosis and elevated lipase. COMPARISON: None TECHNIQUE: Axial images were obtained from the lung bases through the pubic symphysis after the administration of IV contrast. Coronal and sagittal reformatted images were generated from the axial dataset. This exam was performed according to our departmental dose optimization program, and includes the following measures where applicable: automated exposure control, adjustment of the mAs and/or kVp according to patient size and/or exam, and an iterative reconstruction algorithm. FINDINGS: The pancreas is edematous and there is acute inflammatory change in the peripancreatic fat. No solid or cystic pancreas lesion. No calcification. No evidence of necrosis. The liver, gallbladder, spleen, adrenal glands, and kidneys are normal. The large and small bowel demonstrate no obstruction. The appendix is normal in appearance and located in the mid lower abdomen. No free intraperitoneal fluid or gas is identified. There is a tampon in vagina. The uterus and adnexa are within normal limits. The aorta is normal in caliber. There is no lymphadenopathy. The uterus and adnexa are normal. The urinary bladder is normal. There is no acute fracture or aggressive osseous lesion. Bilateral L5 pars defects are noted. There is no significant listhesis. A hemangioma is noted in the RIGHT side of the T12 vertebral body. The included lung bases are clear. The visualized heart is normal in size. IMPRESSION: Acute uncomplicated pancreatitis. I have personally reviewed the images of this examination and agree with the resident's findings and interpretation. Interpreted By: Bon Gastelum Preliminary Report By: Melani English DO Electronically Signed By: Bon Gastelum Dictated Date: 11/08/2018 10:40:17 PM Prelim Date: 11/08/2018 10:45:23 PM Sign Date: 11/09/2018 12:13:28 AM Normal [facility] ([place]) LIPIDon 11-09-2018 Cholesterol [Mass/Vol] 182 mg/dL Normal 0-200 [facility] ([place]) Comment on above: Result Comment: Chol esterol Reference Interval: Less than 200 Desirable 200-239 Borderline high risk 240 and above High risk Performed By: #### U A, UAMICAO #### [address] [address] #### PREGU #### [address] [address] Cholesterol in HDL [Mass/Vol] 47 mg/dL Normal 40-60 [facility] ([place]) Comment on above: Performed By: #### U A, UAMICAO #### [address] [address] #### PREGU #### [address] [address] Cholesterol in LDL [Mass/Vol] 107 mg/dL Normal 0-130 [facility] ([place] Comment on above: Performed By: #### U A, UAMICAO #### [address] [address] #### PREGU #### [place] [address] Triglyceride [Mass/Vol] 142 mg/dL Normal 0-150 [facility] ([place]) Comment on above: Result Comment: Trig lyceride Reference Interval: Less than 150 Normal 150-199 Borderline high risk 200-499 High risk 500 or higher Very high risk Performed By: #### U A, UAMICAO #### [place] [address] #### PREGU #### [place] [address] .Auto Diffon 11-08-2018 Ammonia (P) [Mass/Vol] 1.00 10 3/mcL Normal 0.15-1.00 [facility] ([place]) Comment on above: Performed By: #### JUVENAL NIELSON, ANEU #### [place] [address] #### LIP, CMP, GFR #### [place] [address] Basophils (Bld) [#/Vol] 0.10 10 3/mcL Normal 0.00-0.19 [facility] ([place]) Comment on above: Performed By: #### JUVENAL NIELSON ANEU #### [place] [address] #### LIP, CMP, GFR #### [place] [address] Basophils/100 WBC (Bld) 0.6 % Normal 0.0-2.5 [facility] ([place] Comment on above: Performed By: #### JUVENAL NIELSON, ANEU #### [place] [address] #### LIP, CMP, GFR #### [place] [address] Eosinophils (Bld) [#/Vol] 0.30 10 3/mcL Normal 0.00-0.40 [facility] ([place]) Comment on above: Performed By: #### JUVENAL NIELSON, ANEU #### [address] [address] #### LIP, CMP, GFR #### [address] [address] Eosinophils/100 WBC (Bld) 1.9 % Normal 0.0-7.0 [facility] ([place]) Comment on above: Performed By: #### C BC, ADIFF, ANEU #### [place] [id number] #### LIP, CMP, GFR #### [address] [address] Lymphocytes (Bld) [#/Vol] 5.90 10 3/mcL High 0.77-3.85 [facility] ([place]) Comment on above: Performed By: #### C BC, ADIFF, ANEU #### [place] [address] #### LIP, CMP, GFR #### [address] [address] Lymphocytes/100 WBC (Bld) 37.0 % Normal 10.0-50.0 [facility] ([place]) Comment on above: Performed By: #### C BC, ADIFF, ANEU #### [place] [address] #### LIP, CMP, GFR #### [address] [address] Monocytes/100 WBC (Bld) 6.3 % Normal 1.7-13.0 [facility] ([place]) Comment on above: Performed By: #### C BC, ADIFF, ANEU #### [place] [id number] #### LIP, CMP, GFR #### [address] [address] Neutrophils/100 WBC (Bld) 54.2 % Normal 37.0-80.0 [facility] ([place]) Comment on above: Performed By: #### C BC, ADIFF, ANEU #### [place] [address] #### LIP, CMP, GFR #### [address] [address] .GFRon 11-08-2018 GFR Non- 103 ml/min/1.73sqm Normal [facility] ([place]) Comment on above: Result Comment: GFR Population mean for , Non- Americans Ages 20-29 = 116 mL/min/1.73 sq.m. Ages 30-39 = 107 mL/min/1.73 sq.m. Ages 40-49 = 99 mL/min/1.73 sq.m. Ages 50-59 = 93 mL/min/1.73 sq.m. Ages 60-69 = 85 mL/min/1.73 sq.m. Ages 70+ = 75 mL/min/1.73 sq.m. Chronic Kidney Disease: Less than 60 mL/min/1.73 square meters End Stage Renal Disease: Less than 15 mL/min/1.73 square meters Performed By: #### C BCJUVENAL, ANEU #### Moh[address]ud [address] [address] #### LIP, CMP, GFR #### [address] [address] GFR 125 ml/min/1.73sqm Normal [facility] ([place] Comment on above: Result Comment: GFR Population mean for , Non- Americans Ages 20-29 = 116 mL/min/1.73 sq.m. Ages 30-39 = 107 mL/min/1.73 sq.m. Ages 40-49 = 99 mL/min/1.73 sq.m. Ages 50-59 = 93 mL/min/1.73 sq.m. Ages 60-69 = 85 mL/min/1.73 sq.m. Ages 70+ = 75 mL/min/1.73 sq.m. Chronic Kidney Disease: Less than 60 mL/min/1.73 square meters End Stage Renal Disease: Less than 15 mL/min/1.73 square meters Performed By: #### C BC, ADIFF, ANEU #### [address] [address] #### LIP, CMP, GFR #### [address] [address] .NEUABSon 11-08-2018 Neutrophils (Bld) [#/Vol] 8.70 10 3/mcL High 2.85-6.16 [facility] ([place]) Comment on above: Performed By: #### C JUVENAL SEN, ANEU #### [place] [address] #### LIP, CMP, GFR #### [place] [address] .Urinalysis Microscopic (AO) on 11-08-2018 RBC (U) [#/Vol] 0-5 Abnormal None Seen [facility] ([place] Comment on above: Performed By: #### U A, UAMICAO #### [place] [address] #### PREGU #### [place] [address] UA Bacteria Trace Abnormal [facility] ([place] Comment on above: Performed By: #### U A, UAMICAO #### [place] [address] #### PREGU #### [place] [address] UA Squam Epithelial 5-10 Abnormal None Seen [facility] ([place] Comment on above: Performed By: #### U A, UAMICAO #### [place] [address] #### PREGU #### [place] [address] UA WBC None Seen Normal None Seen [facility] ([place] Comment on above: Performed By: #### U A, UAMICAO #### [place] [address] #### PREGU #### [place] [address] CBCon 11-08-2018 Erythrocyte distribution width (RBC) [Ratio] 14.5 % Normal 11.5-14.5 [facility] ([place]) Comment on above: Performed By: #### C BC, ADIFF, ANEU #### [address] [address] #### LIP, CMP, GFR #### [address] [address] Hematocrit (Bld) [Volume fraction] 38.5 % Normal 37.0-47.0 [facility] ([place]) Comment on above: Performed By: #### C FRANCY, ADIFF, ANEU #### [place] [address] #### LIP, CMP, GFR #### [address] [address] Hemoglobin (Bld) [Mass/Vol] 12.5 G/dL Normal 12.0-16.0 [facility] ([place]) Comment on above: Performed By: #### C FRANCY, ADIFF, ANEU #### [place] [address] #### LIP, CMP, GFR #### [address] [address] MCH (RBC) [Entitic mass] 25.4 pg Low 27.0-31.2 [facility] ([place]) Comment on above: Performed By: #### C FRANCY, ADIFF, ANEU #### [place] [address] #### LIP, CMP, GFR #### [address] [address] MCHC (RBC) [Mass/Vol] 32.5 G/dL Low 33.0-37.0 [facility]ly [facility] ([place]) Comment on above: Performed By: #### C FRANCY, ADIFF, ANEU #### [place] [address] #### LIP, CMP, GFR #### [address] [address] MCV (RBC) [Entitic vol] 78.2 fL Low 80.0-94.0 [facility] ([place]) Comment on above: Performed By: #### C FRANCY, ADIFF, ANEU #### [place] [address] #### LIP, CMP, GFR #### [address] [address] Platelet mean volume (Bld) [Entitic vol] 7.1 fL Low 7.4-10.4 [facility] ([place]) Comment on above: Performed By: #### C BC, ADIFF, ANEU #### [place] [address] #### LIP, CMP, GFR #### [address] [address] Platelets (Bld) [#/Vol] 344 10 3/mcL Normal 130-400 [facility] ([place]) Comment on above: Performed By: #### C BC, ADIFF, ANEU #### [place] [address] #### LIP, CMP, GFR #### [address] [address] RBC (Bld) [#/Vol] 4.92 10 6/mcL Normal 4.20-5.40 [facility] ([place] Comment on above: Performed By: #### C BC, ADIFF, ANEU #### [place] [address] #### LIP, CMP, GFR #### [address] [address] WBC (Bld) [#/Vol] 16.10 10 3/mcL High 4.60-10.80 [facility]ly [facility], [facility]–[place] ([place] Comment on above: Performed By: #### C BC, ADIFF, ANEU #### [place] [address] #### LIP, CMP, GFR #### [address] [address] CMPon 11-08-2018 Albumin [Mass/Vol] 3.1 G/dL Low 3.5-5.0 [facility] ([place]) Comment on above: Performed By: #### C BC, ADIFF, ANEU #### [address] [address] #### LIP, CMP, GFR #### [address] [address] Albumin/Globulin [Mass ratio] 0.8 {ratio} Low 1.1-2.5 [facility] ([place]) Comment on above: Performed By: #### C BC, ADIFF, ANEU #### [place] [address] #### LIP, CMP, GFR #### [address] [address] ALP [Catalytic activity/Vol] 26 U/L Low 40-135 [facility] ([place]) Comment on above: Performed By: #### C BC, ADIFF, ANEU #### [place] [address] #### LIP, CMP, GFR #### [address] [address] ALT [Catalytic activity/Vol] 27 U/L Normal 10-35 [facility] ([place]) Comment on above: Performed By: #### C BC, ADIFF, ANEU #### [place] [address] #### LIP, CMP, GFR #### [address] [address] AST [Catalytic activity/Vol] 17 U/L Normal 10-40 [facility] ([place] Comment on above: Performed By: #### C BC, ADIFF, ANEU #### [place] [address] #### LIP, CMP, GFR #### [address] [address] Bili Total 0.2 mg/dL Normal 0.2-1.0 [facility] ([place] Comment on above: Performed By: #### C BC, ADIFF, ANEU #### [place] [address] #### LIP, CMP, GFR #### [address] [address] Calcium [Mass/Vol] 8.8 mg/dL Normal 8.4-10.2 [facility] ([place]) Comment on above: Performed By: #### C BC, ADIFF, ANEU #### [address] [address] #### LIP, CMP, GFR #### [address] [address] Chloride [Moles/Vol] 105 mmol/L Normal 98-107 [facility] ([place] Comment on above: Performed By: #### C BC, ADIFF, ANEU #### [address] [address] #### LIP, CMP, GFR #### [address] [address] CO2 [Moles/Vol] 26 mmol/L Normal 22-29 [facility] ([place]) Comment on above: Performed By: #### C BC, ADIFF, ANEU #### [place] [address] #### LIP, CMP, GFR #### [address] [address] Creatinine [Mass/Vol] 0.71 mg/dL Normal 0.55-1.02 [facility]ly [facility], [facility]–[place] ([place] Comment on above: Performed By: #### C BC, ADIFF, ANEU #### [address] [address] #### LIP, CMP, GFR #### [address] [address] Electrolyte Balance 11.0 mEq/L Normal [facility] ([place]) Comment on above: Performed By: #### C BC, ADIFF, ANEU #### [place] [address] #### LIP, CMP, GFR #### [address] [address] Globulin (S) [Mass/Vol] 3.9 G/dL Normal [facility] ([place] Comment on above: Performed By: #### C BC, ADIFF, ANEU #### [address] [address] #### LIP, CMP, GFR #### [address] [address] Glucose [Mass/Vol] 115 mg/dL High 70-105 [facility] ([place]) Comment on above: Performed By: #### C BC, ADIFF, ANEU #### [address] [address] #### LIP, CMP, GFR #### [address] [address] Potassium [Moles/Vol] 3.6 mmol/L Normal 3.5-5.1 [facility] ([place] Comment on above: Performed By: #### C BC, ADIFF, ANEU #### [address] [address] #### LIP, CMP, GFR #### [address] [address] Protein [Mass/Vol] 7.0 G/dL Normal 6.4-8.2 [facility] ([place]) Comment on above: Performed By: #### C BC, ADIFF, ANEU #### [address] [address] #### LIP, CMP, GFR #### [address] [address] Sodium [Moles/Vol] 142 mmol/L Normal 136-145 [facility] ([place]) Comment on above: Performed By: #### C BC, ADIFF, ANEU #### [address] [address] #### LIP, CMP, GFR #### [address] [address] Urea nitrogen [Mass/Vol] 16 mg/dL Normal 7-18 [facility] ([place] Comment on above: Performed By: #### C BC, ADIFF, ANEU #### [address] [address] #### LIP, CMP, GFR #### [address] [address] Urea nitrogen/Creatinine [Mass ratio] 23 ratio Normal 7-27 [facility] ([place] Comment on above: Performed By: #### C BC, ADIFF, ANEU #### [address] [address] #### LIP, CMP, GFR #### [address] [address] LIPon 11-08-2018 Lipase Level >2250 High 73-393 [facility] ([place] Comment on above: Performed By: #### C BC, ADIFF, ANEU #### [address] [address] #### LIP, CMP, GFR #### [place] [address] PREGUon 11-08-2018 HCG ( test) Ql (U) Negative Normal [facility] ([place] Comment on above: Performed By: #### U A, UAMICAO #### [place] [address] #### PREGU #### [address] [address] test (u) int HCG not detected. [facility] ([place] Comment on above: Performed By: #### U A, UAMICAO #### [place] [address] #### PREGU #### [address] [address] UAon 11-08-2018 Color (U) Yellow Normal [facility] ([place] Comment on above: Performed By: #### U A, UAMICAO #### [place] [address] #### PREGU #### [address] [address] Glucose (U) [Mass/Vol] Negative Normal Negative [facility] ([place] Comment on above: Performed By: #### U A, UAMICAO #### [place] [address] #### PREGU #### [address] [address] Ketones Ql (U) Negative Normal Negative [facility] ([place] Comment on above: Performed By: #### U A, UAMICAO #### [place] [address] #### PREGU #### [address] [address] UA Appear Clear Normal Clear [facility] ([place] Comment on above: Performed By: #### U A, UAMICAO #### [place] [address] #### PREGU #### [address] [address] UA Blood Moderate Abnormal Negative [facility] ([place] Comment on above: Performed By: #### U A, UAMICAO #### [place] [address] #### PREGU #### [address] [address] UA Leuk Est Negative Normal Negative [facility] ([place] Comment on above: Performed By: #### U A, UAMICAO #### [place] [address] #### PREGU #### [address] [address] UA Nitrite Negative Normal Negative [facility] ([place] Comment on above: Performed By: #### U A, UAMICAO #### [place] [address] #### PREGU #### [address] [address] UA pH 5.5 Normal 5.0 - 8.0 [facility] ([place] Comment on above: Performed By: #### U A, UAMICAO #### [place] [address] #### PREGU #### [address] [address] UA Protein Negative Normal Negative [facility] ([place] Comment on above: Performed By: #### U A, UAMICAO #### [place] [address] #### PREGU #### [address] [address] UA Spec Grav 1.025 Normal 1.015-1.025 [facility] ([place]) Comment on above: Performed By: #### U A, UAMICAO #### [place] [address] #### PREGU #### [address] [address] UA Specimen Type Void Normal [facility] ([place] Comment on above: Performed By: #### U A, UAMICAO #### [place] [address] #### PREGU #### [address] [address] UA Urobilinogen 0.2 E.U./dL Normal 0.2-1.0 [facility] ([place]) Comment on above: Performed By: #### U A, UAMICAO #### [place] [address] #### PREGU #### [address] [address] Urobilinogen Qn (U) Negative Normal Negative [facility] ([place] Comment on above: Performed By: #### U A, UAMICAO #### [place] [address] #### PREGU #### [address] [address] Vital Signs Date Time Vital Sign Value Performing Clinician Facility 01-27-2025 15:21040 Body height 161.[address] Jeffrey Orourke MD Work Phone: [facility] 01-27-2025 15:21-0400 Body mass index (BMI) [Ratio] 47.7 kg/m2 Dr. Jeffrey Orourke MD Work Phone: 8(040)[phone] [place] [address] 01-27-2025 15:21-0400 Body weight 124.[address] Jeffrey Orourke MD Work Phone: 2(362)256-766124 [place] [address] 01-27-2025 15:21-0400 Diastolic blood pressure 86 mm[Hg] Dr. Jeffrey Orourke MD Work Phone: 9(779)681-084424 [place] [address] 01-27-2025 15:21-0400 Systolic blood pressure 128 mm[Hg] Dr. Jeffrey Orourke MD Work Phone: 7(336)047-077724 [place] [address] 12-23-2024 15:33-0400 Body height 161.[address] Jeffrey Orourke MD Work Phone: 6(769)[phone] [place] [address] 12-23-2024 15:33-0400 Body mass index (BMI) [Ratio] 47.9 kg/m2 Dr. Jeffrey Orourke MD Work Phone: 8(834)[phone] [place] [address] 12-23-2024 15:33-0400 Body weight 124.[address] Jeffrey Orourke MD Work Phone: 2(802)626-112324 [place] [address] 12-23-2024 15:33-0400 Diastolic blood pressure 75 mm[Hg] Dr. Jeffrey Orourke MD Work Phone: 1(780)943-846624 [place] [address] 12-23-2024 15:33-0400 Systolic blood pressure 122 mm[Hg] Dr. Jeffrey Orourke MD Work Phone: 4(670)933-797624 [place] [address] 10-08-2024 14:00-0400 Body mass index (BMI) [Ratio] 47.8 kg/m2 Dr. Jeffrey Orourke MD Work Phone: 3(396)557-111824 [place] [address] 10-08-2024 14:00-0400 Body weight 124.[address] Jeffrey Orourke MD Work Phone: 9(448)135-783724 [place] [address] 10-08-2024 14:00-0400 Diastolic blood pressure 82 mm[Hg] Dr. Jeffrey Orourke MD Work Phone: 2(590)540-521824 [place] [address] 10-08-2024 14:00-0400 Heart rate 95 /min Dr. Jeffrey Oorurke MD Work Phone: 9(005)421-849024 [place] [address] 10-08-2024 14:00-0400 SaO2% (BldA) [Mass fraction] 96 % Dr. Jeffrey Orourke MD Work Phone: [facility] 10-08-2024 14:00-0400 Systolic blood pressure 119 mm[Hg] Dr. Jeffrey Orourke MD Work Phone: [facility] 06-30-2022 14:00-0500 Blood Pressure Location [facility]EL[facility]Le[facility] 06-30-2022 14:00-0500 Blood Pressure Method [facility] PATELPromethera BiosciencesAria D O [facility] 06-30-2022 14:00-0500 Body temperature 98.06 [degF] [facility] 06-30-2022 14:00-0500 Diastolic Blood Pressure Non-Invasive 88 1 [facility] 06-30-2022 14:00-0500 Heart rate 97 /min ALMA Puzl [facility] 06-30-2022 14:00-0500 Respiratory rate 16 /min [facility] 06-30-2022 14:00-0500 Systolic Blood Pressure Non-Invasive 136 1 [facility] Encounters Encounter Date Encounter Type Care Provider Facility Start: 03-16-2025 ambulatory Marquita Bourgeois NP Facil ity:[facility] Start: 02-03-2025 Encounter for genera l adult medical examination without abnormal findings [facility] Start: 01-27-2025 End: 01-27-2025 Patient encounter procedure Nancy CHAU -[facility] [place] Work Phone: Start: 01-27-2025 End: 01-27-[address] 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 Jeffrey Orourke MD Work Phone: -[facility] Start: 12-23-2024 End: 12-23-2024 ambulatory Jeffrey Orourke Facility:[facility] Start: 10-08-2024 End: 10-08-[address] Aldo Linares MD -[facility] Work Phone: Start: 10-08-2024 End: 10-08-2024 ambulatory Jeffrey Orourke Facility:[facility] Start: 07-15-2024 End: 07-15-2024 ambulatory Jeffrey Orourke Facility:[facility] Start: 07-13-2024 End: 07-13-2024 ambulatory Nancy Quevedo Facility:[facility] Start: 04-07-2024 End: 04-07-2024 ambulatory Jeffrey Orourke Facility:[facility] Start: 04-07-2024 End: 04-07-2024 [facility] Start: 03-29-2024 End: 03-29-2024 Emergency department patient visit Gurjit Rios Facility:[facility] Start: 02-20-2023 End: 02-20-2023 ambulatory [facility] Work Phone: Start: 02-20-2023 End: 02-20-2023 Patient encounter procedure [facility] Work Phone: Start: 02-12-2023 End: 02-12-2023 ambulatory [facility] Work Phone: Start: 02-12-2023 End: 02-12-2023 Patient encounter procedure [facility] Start: 02-06-2023 End: 02-06-2023 Patient encounter procedure [facility] Work Phone: Start: 06-30-2022 End: 06-30-2022 Emergency department patient visit ALMA SANTILLAN DO [facility] Start: 09-28-2021 End: 09-28-2021 Patient encounter procedure [facility] Start: 08-05-2020 Patient encounter procedure Josh Pimentel MD Work Phone: [facility] Start: 08-05-2020 Progress Note Josh Pimentel MD Work Phone: [facility] Procedures Date Procedure Procedure Detail Performing Clinician Start: 01-27-[address] Jeffrey xiao MD Work Phone: Start: 12-23-2024 Liquid based cervica l cytology screening Dr. Jeffrey Orourke MD Work Phone: Comment on above: NEGATIVE FOR INTRAEP ITHELIAL LESION OR MALIGNANCY. This liquid based Th inPrep(R) pap test was screened withthe use of an image guided system. The HPV DNA reflex c imelda were not met with this specimenresult therefore, no HPV testing was performed.Performed at: [address] [id number] Director: Magalis Barakat MD, Phone: [phone] Start: 02-20-2023 Ultrasonography of abdomen None (qualifier value) BENSON SANTILLAN DO Plan of Treatment Date Care Activity Detail Author Start: 01-27-2025 Procedure [facility] Start: 12-23-2024 Liquid based cervica l cytology screening [facility] Start: 02-21-2022 Influenza vaccination INFLUENZ A (Season Ended) [facility] Start: 12-17-2016 PAP TESTING PAP TESTING [facility] Start: 12-17-2014 Urine microalbumin profile DTAP,TDAP,TD (1 - Tdap) [facility] Start: 12-17-2013 HEPATITIS C SCREENING HEPATITIS C [facility] Start: 12-17-2013 HIV SCREENING HIV SCREENING [facility] Start: 12-17-2009 PEDS TO ADULT TRANSI TION ANNUAL ASSESSMENT PEDS TO ADULT TRANSITION ANNUAL ASSESSMENT [facility] Start: 2007 Adult depression screening assessment DEPRESSION SCREENING [facility] Start: 2007 PEDS TO ADULT TRANSI TION INITIAL DISCUSSION PEDS TO ADULT TRANSITION INITIAL DISCUSSION [facility] Start: 12-17-2006 HPV VACCINE (1 - 2-d ose series) HPV VACCINE (1 - 2-dose series) [facility] Start: 12-17-2000 COVID-19 VACCINE (#1) COVID-19 VACCI NE (#1) [facility] Liquid based cervica l cytology screening [facility] Path report.final Dx Spec [facility] T4 free measurement [facility] Thyroid stimulating hormone measurement [facility] Immunizations Immunization Date Immunization Notes Care Provider Fa godwin 05-30-2018 tetanus toxoid, redu chastity diphtheria toxoid, and acellular pertussis vaccine, adsorbed; Translations: [Boostrix (Tdap)] ALMA SANTILLAN DO [facility] Payers Date Payer Category Payer Self-pay [id number] 2024 Unknown [id number] 2015 Medicaid [facility] MEDICAID [facility] [employer] MEDICAID [id number] 2015-Present [phone] [address] [place] [address] Medicaid [id number] Private Health Insurance [facility] [id number] Unknown [id number] Unknown [id number] Unknown [id number]. 462 Unknown [id number]. 462 Unknown [id number]. 462 Unknown [id number] [id number]. 462 Unknown [id number] [id number]. 462 Unknown [id number] [id number]. 462 Unknown [id number] [id number]. 462 Unknown [id number] [id number]. 462 Unknown [id number] [id number]. 462 Unknown [id number] [id number]. 462 Unknown [id number]. 462 Social History Date Type Detail Facility [facility] if ever smoked [facility] Work Phone: Start: 1995 Sex Assigned At Female W [facility] Start: 12-19-2014 [facility] End: 11-28-2014 History of tobacco use Current smoker [facility] End: 11-28-2014 History of tobacco use Cigarette Smoker [facility] Start: 09-18-2015 Alcohol intake Not Asked [facility] Start: 1995 Sex Assigned At Not on file [facility] Tobacco Nicotine Use: Va ping Product in Last [address] [facility] Tobacco smoking status Smokes to bacco daily (finding) [facility] Sex Assigned At Sex [facility] Start: 03-29-2024 Tobacco smoking [facility] Never smoked tobacco (finding) [facility] Functional Status Date Assessment Result Facility 06-30-2022 Functional Status Safety level maintained [facility] Mental Status Date Assessment Result Facility 06-30-2022 Mental Status Oriented x 4 [facility] Clinical Notes 08-05-2020 to 01-27-2025 Note Date & Type Note Facility 01-27-2025 Progress note [facility] 01-27-2025 Progress note Note Date/Time January 27, 2025 4:02pm [facility] [address], [address] [place] [address] OFFICE VISIT Date of Service: 01/27/25 MR#: [id number] Acct: [id number] Name: JUANITO ESTEVEZ Rep #: [id number] : 1995 Provider: ISAC Quevedo Age/Sex: 29/F Location: [facility] Status: Signed Intake Vital Signs 12/23/24 15:33 01/27/25 15:21 Height 5 ft 3.5 in 5 ft 3.5 in Weight: 275 lb 273 lb 8 oz BMI 47.9 47.7 BP 122/75 H 128/86 H Intake Visit Reasons: OCP discussion $30 copay 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: No Is patient in pain?: No Allergies Penicillins Adverse Reaction (Mild, Verified 01/27/25 15:26) Rash Medications ?Medication ?Instructions ?Recorded ?Confirmed ?Type medroxyprogesterone 10 mg tablet 10 mg PO QDAY #10 tab s 01/27/25 01/27/25 Rx (Provera) Post menopausal: No Patient : No : No PFSH Medical History Abnormal results of thyroid function studies PCOS (polycystic ovarian syndrome) Pancreatitis Family History Grandmother Breast cancer Aunt Breast cancer Father Myocardial infarction Other Cancer Social History adopted: No household members: significant other housing: house number of children: 0 current occupational status: employed current occupation: [employer] current occupational exposures/hazards: No pets and animals: Yes leisure activities: other history of recent travel: No sexually active: Yes Smoking Status: Never smoker Electronic Cigarette Use: with nicotine alcohol intake: current alcohol intake frequency: holidays/special occasions only substance use type: other caffeine: Yes Type: tea eating out: 1-3 times/week during the past year weight has: remained stable what type of physical activity do you participate in: walking frequency: 3-4 times per week marisol/anabaptism: None seatbelt use: always do you feel safe at home: Yes HPI OCP discussion $30 copay Details: JUANITO ESTEVEZ is a 29 year old who presents for OCP discussion vs provera challenge. She has been having irregular menses x 2 years; recently however has not had a menses since Jul 2024. Multiple negative tests. History of PCOS. It was recommended by her bill adjuster to start OCP however she has a hard time remembering to take medication. Interested in provera challenge/possible IUD in the future. History 0 Elective abortions Hx Para Spontaneous abortions Hx # Term Pregnancies Ectopic pregnancies Hx # Pregnancies Multiple births # of living children ROS Const Constitutional: Denies chills, fatigue, fever(s), headache(s) or weight loss Eyes Eyes: Denies change in vision ENT ENT: Denies dizziness Resp Resp: Denies cough Neuro Neuro: Denies dizziness Endo Endo: Denies cold intolerance, excessive sweating or heat intolerance Exam Const General: cooperative, healthy appearing, comfortable, no acute distress, well groomed and well hydrated Nutritional Appearance: well nourished Orientation: alert, awake and oriented x3 Eyes General: appearance normal, both eyes and all related structures Resp Effort & Inspection: normal respiratory effort, able to speak in complete sentences and symmetric chest movement Neuro General: patient alert, patient awake, patient oriented x3 and moves all extremities Psych Appearance: grossly normal Mental Status: mental status grossly normal Affect: normal affect Speech and Movement: speech and movement normal Attitude: cooperative Results POC Urine Office , Urine Negative Last Edit by Marquita Bridges on 01/27/25 15 :25 Coding Level of Care Code Established Pt Off vis,est,level 3 Patient Type Established Diagnoses PCOS (polycystic ovarian syndrome) E28.2 Irregular menses N92.6 Amenorrhea N91.2 Family history of ovarian cancer Z80.41 Assessment and Plan Assessment and Plan (1) PCOS (polycystic ovarian syndrome): Status: Chronic Plan: chronic management--not interested in control at this time; considering IUD after provera challenge. (2) Irregular menses: Status: Acute Comment: x 2 years. (3) Amenorrhea: Status: Acute Comment: secondary Plan: Has not had menses since Jul. Negative test today. Discussed different treatment options to her and she would like to proceed with provera challenge. Aware of the possibility of --advised alt use of control such as condoms or abstaining from sex. Does not want to do OCP as she had a hard time remembering to take her pills consistently. She is interested in IUD as well however would like to try challenge first. She is to call with or without bleed in 2 weeks. (4) Family history of ovarian cancer: Status: Acute Comment: aunt/cousin Plan: desires empower testing. Aware of cost if not covered by insurance. Orders placed today. Orders: Orders POC Urine Today Z30.9 - Encounter for contraceptive management, unspecified Medications: New medroxyprogesterone (Provera) 10 mg PO QDAY 10 tabs 0RF 01/27/25 1602 <Electronically signed by Nancy CHAU> Date _ Nancy CHAU Cosigner Signature: Date (if applicable) CC: ~ [facility] Work Phone: 1(175) 162-538404-18-2025 Evaluation note* Diagnosis Onset Date Resolution Status Admit Date Abnormal results of thyroid function studies chronic October 08 1:51pm PCOS (polycystic ovarian syndrome) chronic October 08, 2024 1:51pm Irregular menses acute December 3:29pm Women's annual routine gynecological examination acute December 232024 3:29pm Abnormal results of thyroid function studies chronic December 23, 2024 3:29pm PCOS (polycystic ovarian syndrome) chronic December 23, 2024 3 :29pm [facility] Work Phone: 1(945) 663-169504-18-2025 Evaluation note* Diagnosis Onset Date Resolution Status Admit Date Abnormal results of thyroid function studies chronic October 08 1:51pm PCOS (polycystic ovarian syndrome) chronic October 08, 2024 1:51pm Irregular menses acute December 3:29pm Women's annual routine gynecological examination acute December 232024 3:29pm Abnormal results of thyroid function studies chronic December 23, 2024 3:29pm PCOS (polycystic ovarian syndrome) chronic December 23, 2024 3 :29pm Amenorrhea acute January 27 3:15pm Family history of ovarian cancer acute January 27, 2025 3:15pm Irregular menses acute January 272024 3:15pm PCOS (polycystic ovarian syndrome) chronic January 27, 2025 3:15pm [facility] Work Phone: 1(937) 496-209501-08-2023 Hospital Discharge instructions Patient Education 06/30/2022 15:06:03 Shoulder Sprain Shoulder Sprain A sprain is a stretching or tearing of the ligaments that hold a joint together. A sprain may take up to 8 weeks to fully heal, depending on how severe it is. Moderate to severe shoulder sprains are treated with a sling or shoulder immobilizer. Minor sprains can be treated without any special support. Home care The following guidelines will help you care for your injury at home: If a sling was given to you, leave it in place for the time advised by your healthcare provider. Ifyou aren t sure how long to wear it, ask for advice. If the sling becomes loose, adjust it so that your forearm is level with the ground. Your shoulder should feel well supported. Put an ice pack on the injured area for 20 minutes every 1 to 2 hours the first day. You can make your own ice pack by putting ice cubes in a plastic bag. A bag of frozen peas or something similar works well too. Wrap the bag in a thin towel. Continue with ice packs 3 to 4 times a day for the next 2 to 3 days. Then use the pack as needed to ease pain and swelling. You may use acetaminophen or ibuprofen to control pain, unless another pain medicine was prescribed. If you have chronic liver or kidney disease, talk with your healthcare provider before using thesemedicines. Also talk with your provider if you ve had a stomach ulcer or gastrointestinal bleeding. Shoulder joints become stiff if left in a sling for too long. You should start range of motion exercises about 7 to 10 days after the injury. Talk with your provider to find out what type of exercises to do and how soon to start. Follow-up care Follow up with your healthcare provider, or as advised. Any X-rays you had today don t show any broken bones, breaks, or fractures. Sometimes fractures dont show up on the first X-ray. Bruises and sprains can sometimes hurt as much as a fracture. These injuries can take time to heal completely. If your symptoms don t improve or they get worse, talk with your provider. You may need a repeat X-ray or other treatments. When to seek medical advice Call your healthcare provider right away if any of these occur: Shoulder pain or swelling in your arm that gets worse Fingers become cold, blue, numb, or tingly Large amount of bruising of the shoulder or upper arm Fever or chills [phone] [employer] [place] [address]. All rights reserved. This information is not intended as a substitute for professional medical care. Always follow yourhealthcare professional's instructions. Follow Up Care 06/30/2022 13:50:13 With:Call SEGUN Staley [phone] Address:Unknown When:2-[address] [facility] 01-08-2023 Note Discharge Instructions Thank you for allowing [facility] to assist you with your healthcare needs. The following is importantdischarge information regarding your hospital visit. Diagnosis from Today's Visit Fall Shoulder pain-swelling What to Do Next Instructions from Your Care Team No qualifying data available. Post Acute Orders No qualifying data available. You Need to Schedule the Following Appointments Follow Up with Call SEGUN Brown Pt. Refferral [phone] When Within 2-4 days Allergies penicillin Medications Please ask your primary doctor or pharmacist before taking any other medication not listed, including over the counter drugs, herbal medications, vitamins and or supplements as they may interact withyour home medications. What How Much When Instructions Last Dose Unchanged ethinyl estradiol- norgestimate (ethinyl estradiol-norgestimate triphasic 35 mcg oral tablet) 1 tab(s) by mouth Once a day Unchanged pantoprazole (pantoprazole 20 mg oral enteric coated tablet) 1 tab(s) by mouth Once a day Please take this list to your next doctor s visit. Bring all medications you take, including over the counter medications, herbals and other supplements with you to your doctor s visit. Patients and families are reminded to discard old lists and to update any records with all medication providers or retail pharmacies. Education Materials Shoulder Sprain A sprain is a stretching or tearing of the ligaments that hold a joint together. A sprain may take up to 8 weeks to fully heal, depending on how severe it is. Moderate to severe shoulder sprains are treated with a sling or shoulder immobilizer. Minor sprains can be treated without any special support. Home care The following guidelines will help you care for your injury at home: If a sling was given to you, leave it in place for the time advised by your healthcare provider. Ifyou aren t sure how long to wear it, ask for advice. If the sling becomes loose, adjust it so that your forearm is level with the ground. Your shoulder should feel well supported. Put an ice pack on the injured area for 20 minutes every 1 to 2 hours the first day. You can make your own ice pack by putting ice cubes in a plastic bag. A bag of frozen peas or something similar works well too. Wrap the bag in a thin towel. Continue with ice packs 3 to 4 times a day for the next 2 to 3 days. Then use the pack as needed to ease pain and swelling. You may use acetaminophen or ibuprofen to control pain, unless another pain medicine was prescribed. If you have chronic liver or kidney disease, talk with your healthcare provider before using thesemedicines. Also talk with your provider if you ve had a stomach ulcer or gastrointestinal bleeding. Shoulder joints become stiff if left in a sling for too long. You should start range of motion exercises about 7 to 10 days after the injury. Talk with your provider to find out what type of exercises to do and how soon to start. Follow-up care Follow up with your healthcare provider, or as advised. Any X-rays you had today don t show any broken bones, breaks, or fractures. Sometimes fractures dont show up on the first X-ray. Bruises and sprains can sometimes hurt as much as a fracture. These injuries can take time to heal completely. If your symptoms don t improve or they get worse, talk with your provider. You may need a repeat X-ray or other treatments. When to seek medical advice Call your healthcare provider right away if any of these occur: Shoulder pain or swelling in your arm that gets worse Fingers become cold, blue, numb, or tingly Large amount of bruising of the shoulder or upper arm Fever or chills [phone] [employer]. [address] [place] [address]. All rights reserved. This information is not intended as a substitute for professional medical care. Always follow yourhealthcare professional's instructions. Additional Information VACCINATE! IT SAVES LIVES! Members of the community who have not yet received the COVID-19 vaccine and would like to receive it can visit one of [facility] vaccine clinics. There are many vaccine clinic locations within the [facility]. For locations and available times, please visit [email or web address]. It is important to note that some COVID mobile vaccine clinics are held outdoors and may be canceled in rainy orstormy conditions. To learn more about pediatric vaccinations (ages 5-11), we invite you to visit the [facility] webpage. [email or web address] [email or web address] learn more about the COVID-19 vaccine, we invite you to visit the [facility] website for a list of frequently asked questions. [email or web address] [facility] Patient [facility] Access Instructions: Stay connected with your healthcare team and access your personal medical information anytime with the [facility] [employer] Patient Portal. If you would like a full copy of your medical records please contact the [facility] Medical Records Department Friday through Friday between 8a.m. and 4:30p.m. Please follow the directions below to access the portal: 1.Access the email account you provided upon registration to the [facility].2.Look for an invitation email from [facility].3.Open the email and access the invitation link: Accept Invitation to [facility]4.Fill in the required metzger to create your account. Sign into www.[employer] with your username and password that you created in the above steps to stay up to date. You can then view a summary of results, a summary of your visits, and the ability to download your summaries to your computer or send the information securely to a physician. Remember that your healthcare information is confidential, so carefully consider who you will allow to register on the [facility] Patient Portal for access to your information. You can also access the [facility] Patient Portal on the [employer]. Simply click on Health Records under [email or web address] and then click on the [employer] logo. HOW TO SAFELY DISPOSE OF PRESCRIPTION MEDICATIONS Please use one of the following methods to safely dispose of your unused medications. 1.Use a drug disposal kit: the drug disposal pouch allows you to safely discard your old and unuseddrugs. Ask your nurse to give you one when you are discharged.2.Visit a local take-back location: Many local pharmacies and police departments have programs that collect old and unwanted prescriptiondrugs. Call your local pharmacy or go to http://[employer]/6V1Zc9n to find one close to you.3.Make use of household items: Use cat litter or old coffee grounds to dispose medications if other options arenot available. Mix your drugs with these household products, seal them in an airtight container andthrow it into the garbage. Call [facility]: [phone] to be sure your drugs can be disposed of in this way. Some medicines may require a different approach.4.Never flush your medications down the toilet. IF YOU HAVE BEEN PRESCRIBED AN OPIOIDS FOR PAIN If you have been prescribed an opioid (such as hydrocodone, oxycodone or morphine), it is critical to understand the possible side effects and risks of opioid pain medications. Even when taken as directed, opioids can have several side effects including: Tolerance, meaning you might need to take more of a medication for the same pain relief. Nausea, vomiting and/or constipation. Sleepiness, dizziness, dry mouth, confusion, depression or itching. Physical dependence, meaning you have withdrawal symptoms when a medication is stopped ? this can develop within a few days. KNOW YOUR RESPONSIBILITIES It is important to know exactly how much and how often to take the opioid pain medications you are prescribed. Never take opioids in higher amounts or more often than prescribed. Do not combine opioids with alcohol or other drugs that cause drowsiness, such as benzodiazepines, also known as benzos,including diazepam and alprazolam, muscle relaxants or sleep aids. Never sell or share prescriptionopioids. This is illegal. Store opioids in a secure place and out of reach of others (including children, family, friends and visitors). The last page(s) of this document has been signed and retained as a CHART COPY Signatures Patient Education Materials Shoulder Sprain Medication Leaflets My discharge plan and instructions have been reviewed and explained to me and IHERB JASMINE M understand my current condition and have read and understand these discharge instructions. I have received a written copy of the plan/instructions. If I have questions, I am aware that I should contact my doctor. Patient/Soils Technician Signature: Date/Time: Relationship to Patient: Witness Name/Signature: Date/Time: [facility]01-08-2023 Note Discharge Instructions Thank you for allowing [facility] to assist you with your healthcare needs. The following is importantdischarge information regarding your hospital visit. Diagnosis from Today's Visit Fall Shoulder pain-swelling What to Do Next Instructions from Your Care Team No qualifying data available. Post Acute Orders No qualifying data available. You Need to Schedule the Following Appointments Follow Up with Call SEGUN Brown Pt. Refferral [phone] When Within 2-4 days Allergies penicillin Medications Please ask your primary doctor or pharmacist before taking any other medication not listed, including over the counter drugs, herbal medications, vitamins and or supplements as they may interact withyour home medications. What How Much When Instructions Last Dose Unchanged ethinyl estradiol- norgestimate (ethinyl estradiol-norgestimate triphasic 35 mcg oral tablet) 1 tab(s) by mouth Once a day Unchanged pantoprazole (pantoprazole 20 mg oral enteric coated tablet) 1 tab(s) by mouth Once a day Please take this list to your next doctor s visit. Bring all medications you take, including over the counter medications, herbals and other supplements with you to your doctor s visit. Patients and families are reminded to discard old lists and to update any records with all medication providers or retail pharmacies. Education Materials Shoulder Sprain A sprain is a stretching or tearing of the ligaments that hold a joint together. A sprain may take up to 8 weeks to fully heal, depending on how severe it is. Moderate to severe shoulder sprains are treated with a sling or shoulder immobilizer. Minor sprains can be treated without any special support. Home care The following guidelines will help you care for your injury at home: If a sling was given to you, leave it in place for the time advised by your healthcare provider. Ifyou aren t sure how long to wear it, ask for advice. If the sling becomes loose, adjust it so that your forearm is level with the ground. Your shoulder should feel well supported. Put an ice pack on the injured area for 20 minutes every 1 to 2 hours the first day. You can make your own ice pack by putting ice cubes in a plastic bag. A bag of frozen peas or something similar works well too. Wrap the bag in a thin towel. Continue with ice packs 3 to 4 times a day for the next 2 to 3 days. Then use the pack as needed to ease pain and swelling. You may use acetaminophen or ibuprofen to control pain, unless another pain medicine was prescribed. If you have chronic liver or kidney disease, talk with your healthcare provider before using thesemedicines. Also talk with your provider if you ve had a stomach ulcer or gastrointestinal bleeding. Shoulder joints become stiff if left in a sling for too long. You should start range of motion exercises about 7 to 10 days after the injury. Talk with your provider to find out what type of exercises to do and how soon to start. Follow-up care Follow up with your healthcare provider, or as advised. Any X-rays you had today don t show any broken bones, breaks, or fractures. Sometimes fractures dont show up on the first X-ray. Bruises and sprains can sometimes hurt as much as a fracture. These injuries can take time to heal completely. If your symptoms don t improve or they get worse, talk with your provider. You may need a repeat X-ray or other treatments. When to seek medical advice Call your healthcare provider right away if any of these occur: Shoulder pain or swelling in your arm that gets worse Fingers become cold, blue, numb, or tingly Large amount of bruising of the shoulder or upper arm Fever or chills [phone] [employer]. [address] [place] [address]. All rights reserved. This information is not intended as a substitute for professional medical care. Always follow yourhealthcare professional's instructions. Additional Information VACCINATE! IT SAVES LIVES! Members of the community who have not yet received the COVID-19 vaccine and would like to receive it can visit one of [facility] vaccine clinics. There are many vaccine clinic locations within the [facility]. For locations and available times, please visit [email or web address]. It is important to note that some COVID mobile vaccine clinics are held outdoors and may be canceled in rainy orstormy conditions. To learn more about pediatric vaccinations (ages 5-11), we invite you to visit the [facility] webpage. [email or web address]/pages/0941-Lrxra-Zgasqrfrxep-Subifctgyr-Fpkkt-Oia stions.htmlTo learn more about the COVID-19 vaccine, we invite you to visit the [facility] website for a list of frequently asked questions. [email or web address] [email or web address]/assets/Sqjicjnl-geb-Idowhujm/ejnxs-Tftwpzs-Qklsnrqtql _Asked-Questions.pdf [facility] [employer] Patient Portal Access Instructions: Stay connected with your healthcare team and access your personal medical information anytime with the [facility] Patient Portal. If you would like a full copy of your medical records please contact the [facility] Medical Records Department Friday through Friday between 8a.m. and 4:30p.m. Please follow the directions below to access the portal: 1.Access the email account you provided upon registration to the [facility].2.Look for an invitation email from [facility].3.Open the email and access the invitation link: Accept Invitation to [facility].Fill in the required metzger to create your account. Sign into www.[employer] with your username and password that you created in the above steps to stay up to date. You can then view a summary of results, a summary of your visits, and the ability to download your summaries to your computer or send the information securely to a physician. Remember that your healthcare information is confidential, so carefully consider who you will allow to register on the [facility] Patient Portal for access to your information. You can also access the [facility] Patient Portal on the [employer]. Simply click on Health Records under [employer] and then click on the [employer] logo. HOW TO SAFELY DISPOSE OF PRESCRIPTION MEDICATIONS Please use one of the following methods to safely dispose of your unused medications. 1.Use a drug disposal kit: the drug disposal pouch allows you to safely discard your old and unuseddrugs. Ask your nurse to give you one when you are discharged.2.Visit a local take-back location: Many local pharmacies and police departments have programs that collect old and unwanted prescriptiondrugs. Call your local pharmacy or go to http://[employer]/2S3Fs0o to find one close to you.3.Make use of household items: Use cat litter or old coffee grounds to dispose medications if other options arenot available. Mix your drugs with these household products, seal them in an airtight container andthrow it into the garbage. Call [facility]: [phone] to be sure your drugs can be disposed of in this way. Some medicines may require a different approach.4.Never flush your medications down the toilet. IF YOU HAVE BEEN PRESCRIBED AN OPIOIDS FOR PAIN If you have been prescribed an opioid (such as hydrocodone, oxycodone or morphine), it is critical to understand the possible side effects and risks of opioid pain medications. Even when taken as directed, opioids can have several side effects including: Tolerance, meaning you might need to take more of a medication for the same pain relief. Nausea, vomiting and/or constipation. Sleepiness, dizziness, dry mouth, confusion, depression or itching. Physical dependence, meaning you have withdrawal symptoms when a medication is stopped ? this can develop within a few days. KNOW YOUR RESPONSIBILITIES It is important to know exactly how much and how often to take the opioid pain medications you are prescribed. Never take opioids in higher amounts or more often than prescribed. Do not combine opioids with alcohol or other drugs that cause drowsiness, such as benzodiazepines, also known as benzos,including diazepam and alprazolam, muscle relaxants or sleep aids. Never sell or share prescriptionopioids. This is illegal. Store opioids in a secure place and out of reach of others (including children, family, friends and visitors). The last page(s) of this document has been signed and retained as a CHART COPY Signatures Patient Education Materials Shoulder Sprain Medication Leaflets My discharge plan and instructions have been reviewed and explained to me and IHERB JASMINE M understand my current condition and have read and understand these discharge instructions. I have received a written copy of the plan/instructions. If I have questions, I am aware that I should contact my doctor. Patient/Soils Technician Signature: Date/Time: Relationship to Patient: Witness Name/Signature: Date/Time: [facility]01-08-2023 Note ORIGINAL EXAMINATION: TWO XRAY VIEWS OF THE LEFT SHOULDER 06/30/2022 2:55 pm COMPARISON: None. HISTORY: ORDERING SYSTEM PROVIDED HISTORY: Reason for Exam: fall, shoulder pain FINDINGS: Glenohumeral joint is normally aligned. No evidence of acute fracture or dislocation. No abnormal periarticular calcifications. The AC joint is unremarkable in appearance. Visualized lung is unremarkable. IMPRESSION: No acute abnormality. Interpreted by: Kike Irving DO Preliminary Report By: Kike Irving DO Electronically signed By Kike Irving DO Dictated Date: 06/30/2022 2:58:59 PM Prelim Date: 06/30/2022 2:59:31 PM Sign Date: 06/30/2022 2:59:31 PM Ordering Provider: [facility]01-08-2023 Note ORIGINAL EXAMINATION: TWO XRAY VIEWS OF THE LEFT SHOULDER 06/30/2022 2:55 pm COMPARISON: None. HISTORY: ORDERING SYSTEM PROVIDED HISTORY: Reason for Exam: fall, shoulder pain FINDINGS: Glenohumeral joint is normally aligned. No evidence of acute fracture or dislocation. No abnormal periarticular calcifications. The AC joint is unremarkable in appearance. Visualized lung is unremarkable. IMPRESSION: No acute abnormality. Interpreted by: Kike Irving DO Preliminary Report By: Kike Irving DO Electronically signed By Kike Irving DO Dictated Date: 06/30/2022 2:58:59 PM Prelim Date: 06/30/2022 2:59:31 PM Sign Date: 06/30/2022 2:59:31 PM Ordering Provider: [facility]02-13-[facility]21 History of Present illness Narrative* Josh Pimentel MD - 08/05/2020 10:39 AM EST DATE OF SERVICE: 08/05/2020 REASON FOR VISIT: Tooth pain. HISTORY OF PRESENT ILLNESS: This is a 24-year-old female who presented with tooth pain in the left side of upper jaw for the last one week. Patient stated that she has a bad tooth which has been going on for 2 years. She has not seen any dentist so far. Now for the last one week, she is having pain. No swelling of the face. REVIEW OF SYSTEMS: Review of other systems is normal. ALLERGIES: PENICILLIN. MEDICATIONS: List reviewed. PHYSICAL EXAMINATION: She is awake and alert, not in distress, no dyspnea. Temperature 98.1, blood pressure 138/81, pulse 78, respirations 18. Pulse oximetry 98% on room air. Pain score 9/10. HEENT: Did not show any swelling of the face. On examination of the oral cavity, she has a decayed tooth in the left upper jaw on one of the incisors with tenderness of the gum. No obvious abscess was seen. The rest of exam was normal. ASSESSMENT: Infected, decayed tooth with gingivitis. PLAN: Clinical findings were discussed with patient in detail. I explained to her that she needs to see a dentist as soon as possible for further treatment of her tooth problem. I gave her clindamycin 300 mg 3 times a day for 10 days with no refill. She should do mouthwash, use ice packs, continue ibuprofen for the pain as needed and see a dentist as soon as possible. Patient understands and agrees. I want her to take some probiotic or yogurt during the course of clindamycin treatment. Her questions were answered to her satisfaction. Josh Pimentel MD [id number] SSI File#: [id number] END OF DOCUMENT / CHANGE LOG FOLLOWS Last Edited By [employer]. Signed By Josh Pimentel MD #PAWPR Josh Pimentel MD #PAWPR on 08/06/2020 10:09 ET on 08/06/2020 10:09 ET Revision Number - 2 ^^^ Verified/Reviewed by 08/06/[address] [facility] PATIENT NAME: JUANITO ESTEVEZ [facility] Dr. Aburto MEDICAL REC #: [id number] [place] [address] [facility] REPORT STATCARE PHYSICIAN documented in this encounterSlippery Rock ClinicEvaluation + Plan note No data available for this section [facility] Evaluation noteNo assessment information available [facility] Work Phone: Reason for referral (narrative)No reason for referral information availableKindred Hospital Services Work Phone: Summary Purpose Family History No Family History Records Found Relationship Condition Age at Onset Recorded Date/T quinn Not Specified Malignant neoplasm Unknown grandmother Malignant neoplasm of breast Unknown aunt Malignant neoplasm of breast Unknown father Myocardial infarction Unknown Advance Directives No Advanced Directives Records FoundNo Advanced Directives Records Found Chief Complaint and Reason for Visit Chief Complaint NEED ORDER Chief Complaint NEED ORDER RUQ PAIN Chief Complaint Admit Date Thyroid October 08, 2024 1:5 1pm 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 CLERK) December 23, 2024 3:29p m Reason for Visit Admit Date Abnormal results of thyroid function ted dies October 08, 2024 1:51pm PCOS (polycystic ovarian syndrome) October 08, 2024 1:51pm Irregular menses December 23, 2024 3:29p m Women's annual routine gynecological exa mination December 23, 2024 3:29pm Abnormal results of thyroid function ted dies December 23, 2024 3:29pm PCOS (polycystic ovarian syndrome) December 23, 2024 3:29pm Chief Complaint Admit Date Thyroid October 08, 2024 1:5 1pm 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 CLERK) December 23, 2024 3:29p m OCP discussion $30 copay January 27 3:15pm Reason for Visit Admit Date Abnormal results of thyroid function ted dies October 08, 2024 1:51pm PCOS (polycystic ovarian syndrome) October 08, 2024 1:51pm Irregular menses December 23, 2024 3:29p m Women's annual routine gynecological exa mination December 23, 2024 3:29pm Abnormal results of thyroid function ted dies December 23, 2024 3:29pm PCOS (polycystic ovarian syndrome) December 23, 2024 3:29pm Amenorrhea January 27, 2025 3:1 5pm Family history of ovarian cancer January 27, 2025 3:15pm Irregular menses January 27, 2025 3:1 5pm PCOS (polycystic ovarian syndrome) Augus t 2024 3:15pm Additional Source Comments INFORMATION SOURCE (unrecogn ized section and content) DATE CREATED AUTHOR 11/09/2019 [facility] ([place]) DATE CREATED AUTHOR AUTHOR'S ORGANIZ ATION 03/12/2025 [facility] Goals (unrecognized section and content) Goals may be documented in a n alternate section No data available for this sectionGoals may be documented in an alternate sectionGoals may be documented in an alternate sectionGoals may be documented in an alternate sectionGoals may be documented in an alternate sectionGoals may be documented in an alternate sectionGoals may be documented in an alternate section Source Comments (unrecognize d section and content) In the event this informatio n is protected by the Federal Confidentiality of Alcohol and Drug Abuse Patient Records regulations: The Federal rules restrict any use of the information to criminally investigate or prosecute any alcohol or drug abuse patient.[facility] Care Teams (unrecognized sec tion and content) 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 Reagan Mera MD Family Provider Active Dr. Reagan Mera MD Primary Care Provider Active Team Status: Inactive Member Role Status Dates Dr. Reagan Mera MD Primary Care Provider Active Nunu Denson DO Attending Provider Active Team Status: Inactive Member Role Status Dates Dr. Reagan Mera MD Primary Care Provider Active Nunu Denson DO Attending Provider, Referring Pr ovider Active Team Status: Active Member Role/Relationship Status Dates Dr. Reagan Mera MD Family Provider Active Dr. Jeffrey Orourke MD Primary Care Provider Active Team Status: Inactive Member Role/Relationship Status Dates Dr. Jeffrey Orourke MD Primary Care Provider Active Start: October 08, 2024 End: October 08, 2024 Dr. Jeffrey Orourke MD Referring Provider Active Start: October 08, 2024 End: October 08, 2024 Dr. Aldo Linares MD Attending Provider Active Sta rt: October 08, 2024 End: October 08, 2024 Team Status: Inactive Member Role/Relationship Status Dates Dr. Jeffrey Orourke MD Primary Care Provider Active Start: December 23, 2024 End: December 23, 2024 Dr. Jeffrey Orourke MD Referring Provider Active Start: December 23, 2024 End: December 23, 2024 Nancy Quevedo NP-C Attending Provider Active Start: December 23, 2024 End: December 23, 2024 Team Status: Inactive Member Role/Relationship Status Dates Dr. Jeffrey Orourke MD Primary Care Provider Active Start: December 23, 2024 End: December 23, 2024 Nancy Quevedo NP-C Attending Provider Active Start: December 23, 2024 End: December 23, 2024 Nancy Quevedo NP-C Referring Provider Active Start: December 23, 2024 End: December 23, 2024 Team Status: Inactive Member Role/Relationship Status Dates Dr. Jeffrey Orourke MD Primary Care Provider Active Start: January 27, 2025 End: January 27, 2025 Dr. Jeffrey Orourke MD Referring Provider Active Start: January 27, 2025 End: January 27, 2025 Nancy Quevedo NP-C Attending Provider Active Start: January 27, 2025 End: January 27, 2025 Team Status: Active Member Role/Relationship Status Dates Dr. Jeffrey Orourke MD Primary Care Provider Active Start: January 27, 2025 Nancy Quevedo NP-C Attending Provider Active Start: January 27, 2025 Nancy Quevedo NP-C Referring Provider Active Start: January 27, 2025 Team Status: Inactive Member Role/Relationship Status Dates Dr. Jeffrey Orourke MD Primary Care Provider Active Start: January 27, 2025 End: January 27, 2025 Nancy Quevedo NP-C Attending Provider Active Start: January 27, 2025 End: January 27, 2025 Nancy Quevedo NP-C Referring Provider Active Start: January 27, 2025 End: January 27, 2025 Care Team (unrecognized sect ion and content) Care Team Personnel Name: PHYSICIAN, NOT RECORDED Member Role: Primary Care Physician Name: ALMA SANTILLAN DO Position: ED Physician Member Role: ED Physician Address: Address: [address] [place] [address] Care Team Related Persons Name: PRO ESTEVEZ Name: PRO ESTEVEZ Name: PRO ESTEVEZ FOR RECORDS PERTAINING TO PATIENTS WHO ARE OR HAVE BEEN ENROLLED IN A CHEMICAL DEPENDENCY/SUBSTANCEABUSE PROGRAM, SOME INFORMATION MAY BE OMITTED. This clinical summary was aggregated from multiple sources. Caution should be exercised in using it in the provision of clinical care. This summary normalizes information from multiple sources, and as a consequence, information in this document may materially change the coding, format and clinical context of patient data. In addition, data may be omitted in some cases. CLINICAL DECISIONS SHOULD BE BASED ON THE PRIMARY CLINICAL RECORDS. [facility], [facility]. provides no warranty or guarantee of the accuracy or completeness of information in this document.
--- OUTSIDE RECORDS SUMMARY | 2025-03-16 18:55 | XMS RPT_ITS | CCD ---
Author Organization [facility] Care Team Providers Care Farm Supervisor Name Role Phone Jeffrey Orourke MD Primary Care Provider PHYSICIAN, NOT RECORDED Primary Care Physician Jaci Orourke MD, Dr. Murphy Primary Care Provider [phone] Sharad CARPENTER, Dr. Murphy Referring Provider [phone] King JAYDEN, Dr. Carlson Attending Provider Sae WAFER POLISHING LEAD WORKER-C, Nancy Attending Provider [phone] Sae WAFER POLISHING LEAD WORKER-C, Nancy Referring Provider Jeffrey Orourke Primary Care [...] Penicillins; Translations: [penicillins] Drug Allergy 5 Rash [facility] (4 sources) Penicillins Propensity to adverse reactions 5 [facility] (1 source) Penicillins Drug allergy (disorder) 5 [facility] Repository Medications Current Medications Medication Drug [...] PO daily 10 January 27, 2025 12:00am [facility] (2 sources) Start: 5 [facility] ([facility] Active December 23, 2024 12:00am pantoprazole 20 mg delayed release oral tablet (1 source) Proton Pump Inhibitor Start: 9 pantoprazole 20 mg oral enteric coated tablet Dose : 20 mg = 1 tab(s), Oral, qDay, # 30 tab(s), 0 Refill(s), Pharmacy: [facility] [address] [place] Start Date: 11/10/18 Status: Ordered [...] 01-27-2025 HCG ( test) Ql (U) Negative [facility] NATERAon 01-27-2025 NATURA SEE SCANNED REPORT Normal [facility] Comment on above: Performed By: #### L 700.6800, L100.0100 #### [facility] [address] [place], [place], [id number] Musical Engineer Office Visit Reporton 01-27-2025 Musical Engineer Office Visit Report [facility] [address], [address] [place] [address] OFFICE VISIT Date of Service: 01/27/25 MR#: [id number] Acct: [id number] Name: JUANITO ESTEVEZ Rep #: [id number] : 1995 Provider: ISAC Hi Age/Sex: 29/F Location: [facility] [place] Status: Signed Intake Vital Signs 12/23/24 15:33 01/27/25 15:21 Height 5 ft 3.5 in 5 ft 3.5 in Weight: 275 lb 273 lb 8 oz BMI 47.9 47.7 BP 122/75 H 128/86 H Intake Visit Reasons: OCP discussion $30 copay Diagnostic Technician Required: No Is patient in pain?: No [...] 0 current occupational status: employed current occupation: [employer] current occupational exposures/hazards: No pets and animals: [...] in: walking frequency: 3-4 times per week marisol/christian: None seatbelt use: always do you feel safe at home: Yes HPI OCP discussion $30 copay Details: JUANITO ESTEVEZ is a 29 year old who presents for OCP discussion vs provera challenge. She has been having irregular menses x 2 years; recently however has not had a menses since Jul 2024. Multiple negative tests. History of PCOS. It was recommended by her computer science instructor to start OCP however she has a [...] would like (more content not included)... Normal [facility] PAP I-G w/rfx hrHPV-Aptimaon 12-30-2024 ADEQ Comment Normal . [facility] Comment on above: Order Comment: Speci men Comment: No. of containers..01 ThinPrep Vial Result Comment: Sati sfactory for evaluation. No endocervical component is identified. Performed By: #### L 7400.0353 #### [facility] [address] [place], [address] COMM . Normal . [facility] Comment on above: Order Comment: Speci men Comment: No. of containers..01 ThinPrep Vial Performed By: #### L 7400.0353 #### [facility] [address] [place], [place], [address] COMMENT Comment Normal . [facility] Comment on above: Order Comment: Speci men Comment: No. of containers..01 ThinPrep Vial Result Comment: This liquid based ThinPrep(R) pap test was screened with the use of an image guided system. Performed By: #### L 7400.0353 #### [facility] [address] [place], [address] DIAG Comment Normal . [facility] Comment on above: Order Comment: Speci men Comment: No. of containers..01 ThinPrep Vial Result Comment: NEGA TIVE FOR INTRAEPITHELIAL LESION OR MALIGNANCY. Performed By: #### L 7400.0353 #### [facility] [address] [place], [address] HPV RFLX Comment Normal . [facility] Comment on above: Order Comment: Speci men Comment: No. of containers..01 ThinPrep Vial Result Comment: The HPV DNA reflex criteria were not met with this specimen result therefore, no HPV testing was performed. Performed at: [address] [id number] Printing Press Operator: Magalis Barakat MD, Phone: [phone] Performed By: #### L 7400.0353 #### [facility] [address] [place], [address] PAPSMR Comment Normal . [facility] Comment on above: Order Comment: Speci [...] occur. Performed By: #### L 7400.0353 #### [facility] [address] [place], [place], [address] PERFORM Comment Normal . [facility] Comment on above: Order Comment: Speci men Comment: No. of containers..01 ThinPrep Vial Result Comment: Fernanda Telles, Stove Cleaner (ASCP) Performed By: #### L 7400.0353 #### [facility] [address] [place], [place], [address] Cervical or vagninal specime n microscopic examination by cytology stain (reported asOrdered By: Nancy Quevedo on 12-23-2024 Cytology report Cyto stain Doc (Cvx/Vag) Comment . [facility] Comment on above: The Pap smear [...] 12-23-2024 HCG ( test) Ql (U) Negative [facility] - CytologyOrdered By: Nancy Quevedo on 12-23-2024 Stove Cleaner Cyto stain Nom (Cvx/Vag) [ID] Comment . [facility] Comment on above: Fernanda Telles, Cytolog ist (ASCP) Laboratory - Miscellaneous t estsOrdered By: Nancy Quevedo on 12-23-2024 Service comment (Unsp spec) [Interp] . . [facility] No Panel InformationOrdered By: Nancy Quevedo on 12-23-2024 Pap Smear Specimen Adequacy Comment . [facility] Comment on above: Satisfactory for bety luation. No endocervical component is identified. Musical Engineer Office Visit Reporton 12-23-2024 Musical Engineer Office Visit Report [facility] [address], [address] [place] [address] OFFICE VISIT Date of Service: 12/23/24 MR#: [id number] Acct: [id number] Name: JUANITO ESTEVEZ Rep #: [id number] : 1995 Provider: ISAC Hi Age/Sex: 29/F Location: [facility] [place] Status: Signed Intake Vital Signs 10/08/24 14:00 12/23/24 15:33 Height 5 ft 3.5 in 5 ft 3.5 in Weight: 274 lb 4 oz 275 lb BMI 47.8 47.9 BP 119/82 H 122/75 H Blood Pressure Location Lt brachial Position Sitting Pulse 95 Pulse Source Monitor Pulse Oximetry (%) 96 Oxygen Delivery Method room air Intake Visit 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 Normal [facility] Endocrinology Visit Reporton 10-08-2024 Endocrinology Visit Report [facility] [address] [place] [address] [address] [place] [address] OFFICE VISIT Date of Service: 10/08/24 MR#: [id number] Acct: [id number] Name: JUANITO ESTEVEZ Rep #: [id number] : 1995 Provider: Doug Dobbs Age/Sex: 28/F Location: [facility] [place] Status: Signed Intake Vital Signs 07/15/24 15:47 [...] Adverse Reaction (Mild, Verified 10/08/24 14:01) Rash [facility] Medical History (Updated 10/10/24 @ 16:[address] Aldo Linares MD) Abnormal results of thyroid function studies PCOS (polycystic ovarian syndrome) Pancreatitis Family History Grandmother Breast cancer Aunt Breast cancer Father Myocardial infarction Other Cancer Social History adopted: No household members: significant other housing: house number of children: 0 current occupational status: employed current occupation: [employer] current occupational exposures/hazards: No pets and animals: [...] in: walking frequency: 3-4 times per week marisol/christian: None seatbelt use: always do you feel [...] oriented x3 Other: skin tags, acanthosis nigricans [facility] Head: normal to inspection Ears: hearing grossly [...] grossly norm (more content not included)... Normal [facility] Musical Engineer Office Visit Reporton 07-15-2024 Musical Engineer Office Visit Report [facility] [address], [address] [place] [address] OFFICE VISIT Date of Service: 07/15/24 MR#: [id number] Acct: [id number] Name: JUANITO ESTEVEZ Rep #: [id number] : 1995 Provider: ISAC Hi Age/Sex: 28/F Location: [facility] [place] Status: Signed Intake Vital Signs 04/07/24 13:34 07/15/24 15:47 Height 5 ft 3.5 in 5 ft 3.5 in Weight: 279 lb BMI 48.6 BP 127/81 H Intake Visit Reasons: 12 week f/u cycles Diagnostic Technician Required: No Allergies Penicillins Adverse Reaction (Mild, [...] 0 current occupational status: employed current occupation: [employer] current occupational exposures/hazards: No pets and animals: [...] in: walking frequency: 3-4 times per week marisol/christian: None seatbelt use: always do you feel safe at home: Yes [facility] 12 week f/u cycles Details: JUANITO ESTEVEZ [...] and recommendations. 07/15/24 1613 Date Nancy Quevedo WAFER POLISHING LEAD WORKER-C Cosigner Signature: Date (if applicable) CC: Normal [facility] Free T3on 07-13-2024 Free T3 [Mass/Vol] 2.8 pg/mL Normal 2.18-3.98 [facility] Comment on above: Performed By: #### L 700.6800, L100.0100 #### [facility] [address] [place], [address] T4 Free Directon 07-13-2024 T4 FREE DIRECT 0.85 ng/dL Normal 0.76-1.46 [facility] Comment on above: Performed By: #### L 700.6800, L100.0100 #### [facility] [address] [place], [address] Thyroid Stim Hormone (TSH)on 07-13-2024 TSH 4.680 uIU/mL High 0.358-3.740 [facility] Comment on above: Performed By: #### L 700.6800, L100.0100 #### [facility] [address] [place], [address] Thyroid Peroxidase ABon 03-23 THYR PEROX AB 13 IU/mL Normal 0-34 [facility] Comment on above: Result Comment: Perf ormed at: - [facility] [id number] Printing Press Operator: Pito Whitt PhD, Phone: [phone] Performed By: #### L 700.6800, L100.0100 #### [facility] [address] [place], [address] Free T3on 04-08-2024 Free T3 [Mass/Vol] 2.4 pg/mL Normal 2.18-3.98 [facility] Comment on above: Performed By: #### L 700.6800, L100.0100 #### [facility] [address] [place], [address] Musical Engineer Office Visit Reporton 04-07-2024 Musical Engineer Office Visit Report [facility] [address], [address] [place] [address] OFFICE VISIT Date of Service: 04/07/24 MR#: [id number] Acct: [id number] Name: JUANITO ESTEVEZ Rep #: [id number] : 1995 Provider: ISAC Hi Age/Sex: 28/F Location: [facility] [place] Status: Signed Intake Vital Signs 03/29/24 15:26 04/07/24 13:34 Height 5 ft 3.5 in 5 ft 3.5 in Weight: 279 lb BMI 48.6 BP 127/81 H Intake Visit Reasons: ER F/U Chief Complaint: er f/u Diagnostic Technician Required: No Is patient in pain?: No [...] current occupational status: employed current occupation: [employer] current occupational exposures/hazards: No pets and animals: [...] in: walking frequency: 3-4 times per week marisol/christian: None seatbelt use: always do you feel safe at home: Yes HPI ER F/U Details: JUANITO ESTEVEZ is a 28 year old who presents for ER follow up; was seen in the [place] [facility] on March 29 for abnormal period/bleeding; [...] normal, bladder (more content not included)... Normal [facility] T4 Free Directon 04-07-2024 T4 FREE DIRECT 0.75 ng/dL Low 0.76-1.46 [facility] Comment on above: Performed By: #### L 700.6800, L100.0100 #### [facility] [address] [place], [address] Thyroid Stim Hormone (TSH)on 04-07-2024 TSH 3.750 uIU/mL High 0.358-3.740 [facility] Comment on above: Performed By: #### L 700.6800, L100.0100 #### [facility] [address] [place], [address] CBC W/Diff, Automatedon Absolute Lymph 4.28 X10 3/uL Normal 0.83-4.51 [facility] Comment on above: Performed By: #### L 700.6800, L100.0100 #### [facility] [address] [place], [address] Absolute Neut 7.5 X10 3/uL Normal 2.0-7.7 [facility] Comment on above: Performed By: #### L 700.6800, L100.0100 #### [facility] [address] [place], [address] Basophils/100 WBC (Bld) 0.2 % Normal 0-1 [facility] Comment on above: Performed By: #### L 700.6800, L100.0100 #### [facility] [address] [place], [address] Eosinophils/100 WBC (Bld) 0.7 % Normal 0-5 [facility] Comment on above: Performed By: #### L 700.6800, L100.0100 #### [facility] [address] [place], [address] Erythrocyte distribution width (RBC) [Ratio] 13.8 % Normal 11.6-14.6 [facility] Comment on above: Performed By: #### L 700.6800, L100.0100 #### [facility] [address] [place], [address] Hematocrit (Bld) [Volume fraction] 41.2 % Normal 37-47 [facility] Comment on above: Performed By: #### L 700.6800, L100.0100 #### [facility] [address] [place], [address] Hemoglobin (Bld) [Mass/Vol] 13.2 g/dL Normal 12.0-15.0 [facility] Comment on above: Performed By: #### L 700.6800, L100.0100 #### [facility] [address] [place], [address] IG% 0.400 Normal 0.0-0.9 [facility] Comment on above: Result Comment: IG% - Immature Granulocytes (promyelocytes, myelocytes and metamyelocytes) > 1% indicates that a LEFT SHIFT is Present. Performed By: #### L 700.6800, L100.0100 #### [facility] [address] [place], [address] Lymphocytes/100 WBC (Bld) 34.2 % Normal 19-41 [facility] Comment on above: Performed By: #### L 700.6800, L100.0100 #### [facility] [address] [place], [address] MCH (RBC) [Entitic mass] 26.9 pg Low 27.0-32.0 [facility] Comment on above: Performed By: #### L 700.6800, L100.0100 #### [facility] [address] [place], [address] MCHC (RBC) [Mass/Vol] 32.0 g/dL Normal 32-36 [facility] Comment on above: Performed By: #### L 700.6800, L100.0100 #### [facility] [address] [place], [address] MCV (RBC) [Entitic vol] 83.9 fL Normal 81-99 [facility] Comment on above: Performed By: #### L 700.6800, L100.0100 #### [facility] [address] [place], [address] Monocytes/100 WBC (Bld) 4.8 % Normal 0-10 [facility] Comment on above: Performed By: #### L 700.6800, L100.0100 #### [facility] [address] [place], [address] Neutrophils/100 WBC (Bld) 59.7 % Normal 47-70 [facility] Comment on above: Performed By: #### L 700.6800, L100.0100 #### [facility] [address] [place], [address] Nucleated RBC (Bld) [#/Vol] 0 10*3/uL Normal 0-5 [facility] Comment on above: Performed By: #### L 700.6800, L100.0100 #### [facility] [address] [place], [address] Platelet mean volume (Bld) [Entitic vol] 8.9 fL Normal 6.2-12.0 [facility] Comment on above: Performed By: #### L 700.6800, L100.0100 #### [facility] [address] [place], [address] Platelets (Bld) [#/Vol] 295 10*3/uL Normal 150-450 [facility] Comment on above: Performed By: #### L 700.6800, L100.0100 #### [facility] [address] [place], [address] RBC (Bld) [#/Vol] 4.91 10*6/uL Normal 4.2-5.4 [facility] Comment on above: Performed By: #### L 700.6800, L100.0100 #### [facility] [address] [place], [address] RDW SD 42.5 fl Normal 35.1-43.9 [facility] Comment on above: Performed By: #### L 700.6800, L100.0100 #### [facility] [address] [place], [address] WBC (Bld) [#/Vol] 12.5 10*3/uL High 4.4-11.0 [facility] Comment on above: Performed By: #### L 700.6800, L100.0100 #### [facility] [address] [place], [address] Emergency Department Summary on 03-29-2024 Emergency Department Summary [facility] Medical Records Department [address] [place] [address] Emergency Department Summary 03/29/24 MR#: [id number] Acct: [id number] Name: JUANITO ESTEVEZ Rep #: [id number] : 1995 28 From: Gurjit Rios MD [...] Maximum Severity: Moderate Worsened by: Movement and [place] Relieved by: Remaining Still and NSAIDS Bleeding [...] 0 current occupational status: employed current occupation: [employer] current occupational exposures/hazards: No pets and animals: [...] in: walking frequency: 3-4 times per week marisol/christian: None seatbelt use: always do you feel [...] d (more content not included)... Normal [facility] ,Serum,hCG Quali.on 03-29-2024 HCG, SERUM QUAL Negative Normal [facility] Comment on above: Performed By: #### L 700.6800, L100.0100 #### [facility] [address] [place], [address] Transvaginal Non-on 03-29-2024 Transvaginal Non- [facility] Imaging Services [address] [place] [address] Transvaginal Non- MR#: [id number] Acct: [id number] Name: JUANITO ESTEVEZ Rep #: [id number] : 1995 F 28 From: Joce alexandre MD PCP: Dr. Jeffrey Orourke MD Status: [facility] Study: Transvaginal Non- Date of Exam: Exam# [id number] Ordering Dr: Gurjit Rios [place] [id number] STUDY: ULTRASOUND TRANSVAGINAL CLINICAL: Female, 28 years [...] Jeffrey Orourke MD; Dr. Gurjit Rios MD Industrial Editor: Signed Normal [facility] Absolute lymphocyte countOrd ered By: Nunu Denson on 02-12-2023 Lymphocytes Auto (Unsp spec) [#/Vol] 4.64 10*3/uL 0.83-4.51 [facility] Basophil percentageOrdered B y: Nunu Denson on 02-12-2023 Basophils/100 WBC (Bld) 0.2 % 0-1 [facility] Eosinophils/100 WBC (Bld) 0.6 % 0-5 [facility] Neutrophils (Bld) [#/Vol] 7.0 10*3/uL 2.0-7.7 [facility] Neutrophils/100 WBC (Bld) 56.7 % 47-70 [facility] WBC (Bld) [#/Vol] 12.3 10*3/uL 4.4-11.0 [facility] Blood erythrocytes count (nu mber/volume)Ordered By: Nunu Denson on 02-12-2023 RBC (Bld) [#/Vol] 5.10 10*6/uL 4.2-5.4 [facility] Blood hemoglobin measurement (mass/volume)Ordered By: Nunu Denson on 02-12-2023 Hemoglobin (Bld) [Mass/Vol] 13.2 g/dL 12.0-15.0 [facility] Blood lymphocytes/100 leukoc ytesOrdered By: Nunu Denson on 02-12-2023 Lymphocytes/100 WBC (Bld) 37.6 % 19-41 [facility] Blood monocytes/100 leukocyt esOrdered By: Nunu Denson on 02-12-2023 Monocytes/100 WBC (Bld) 4.5 % 0-10 [facility] Blood platelet mean volumeOr dered By: Nunu Denson on 02-12-2023 Platelet mean volume (Bld) [Entitic vol] 9.4 fL 6.2-12.0 [facility] Determination of erythrocyte mean corpuscular volume (MCV)Ordered By: Nunu Denson on 02-12-2023 MCV (RBC) [Entitic vol] 83.7 fL 81-99 [facility] Hematocrit Auto (Bld) [Volum e fraction]Ordered By: Nunu Denson on 02-12-2023 Hematocrit (Bld) [Volume fraction] 42.7 % 37-47 [facility] - Hematology and Cell countsOrdered By: Nunu Denson on 02-12-2023 Erythrocyte distribution width (RBC) [Entitic vol] 42.5 fL 35.1-43.9 [facility] Erythrocyte distribution width (RBC) [Ratio] 13.9 % 11.6-14.6 [facility] Immature granulocytes/100 WBC (Bld) 0.400 % 0.0-0.9 [facility] Comment on above: IG% - Immature Granu locytes (promyelocytes, myelocytes and metamyelocytes) > 1% indicates that a LEFT SHIFT is Present. MCH (RBC) [Entitic mass] 25.9 pg 27.0-32.0 [facility] Nucleated RBC/100 WBC (Bld) [Ratio] 0 % 0-5 [facility] MCHC Auto (RBC) [Mass/Vol]Or dered By: Nunu Denson on 02-12-2023 MCHC (RBC) [Mass/Vol] 30.9 g/dL 32-36 [facility] Platelets bldOrdered By: Daniela Denson on 02-12-2023 Platelets (Bld) [#/Vol] 344 10*3/uL 150-450 [facility] Absolute lymphocyte countOrd ered By: Nunu Denson on 02-06-2023 Lymphocytes Auto (Unsp spec) [#/Vol] 5.15 10*3/uL 0.83-4.51 [facility] Basophil percentageOrdered B y: Nunu Denson on 02-06-2023 Basophils/100 WBC (Bld) 0.3 % 0-1 [facility] Bilirubin [Mass/Vol] 0.20 mg/dL 0.20-1.00 [facility] Comment on above: For patients on eltr ombopag therapy, use of Dimension [place] TBIL is not recommended. Chloride [Moles/Vol] 104 mmol/L 98-107 [facility] Eosinophils/100 WBC (Bld) 1.0 % 0-5 [facility] Glucose [Mass/Vol] 81 mg/dL 74-106 [facility] Neutrophils (Bld) [#/Vol] 8.7 10*3/uL 2.0-7.7 [facility] Neutrophils/100 WBC (Bld) 59.0 % 47-70 [facility] Potassium [Moles/Vol] 4.0 mmol/L 3.5-5.1 [facility] Protein [Mass/Vol] 7.8 g/dL 6.4-8.2 [facility] Sodium [Moles/Vol] 139 mmol/L 136-145 [facility] WBC (Bld) [#/Vol] 14.7 10*3/uL 4.4-11.0 [facility] Blood erythrocytes count (nu mber/volume)Ordered By: Nunu Denson on 02-06-2023 RBC (Bld) [#/Vol] 5.19 10*6/uL 4.2-5.4 [facility] Blood hemoglobin measurement (mass/volume)Ordered By: Nunu Denson on 02-06-2023 Hemoglobin (Bld) [Mass/Vol] 13.8 g/dL 12.0-15.0 [facility] Blood lymphocytes/100 leukoc ytesOrdered By: Nunu Denson on 02-06-2023 Lymphocytes/100 WBC (Bld) 35.0 % 19-41 [facility] Blood manual differential co mment interpretation (narrative result)Ordered By: Nunu Denson on 02-06-2023 Manual differential comment Nito (Bld) [Interp] SEE COMMENT [facility] Comment on above: LYMPHOCYTOSIS NOTED Blood monocytes/100 leukocyt esOrdered By: Nunu Denson on 02-06-2023 Monocytes/100 WBC (Bld) 4.2 % 0-10 [facility] Blood platelet adequacy dete ction by light microscopyOrdered By: Nunu Denson on 02-06-2023 Platelets LM Ql (Bld) ADEQUATE ADEQ [facility] Blood platelet mean volumeOr dered By: Nunu Denson on 02-06-2023 Platelet mean volume (Bld) [Entitic vol] 9.1 fL 6.2-12.0 [facility] Determination of erythrocyte mean corpuscular volume (MCV)Ordered By: Nunu Denson on 02-06-2023 MCV (RBC) [Entitic vol] 85.7 fL 81-99 [facility] Hematocrit Auto (Bld) [Volum e fraction]Ordered By: Nunu Denson on 02-06-2023 Hematocrit (Bld) [Volume fraction] 44.5 % 37-47 [facility] - Chemistry and C hemistry - challengeOrdered By: Nunu Denson on 02-06-2023 ALP [Catalytic activity/Vol] 33 U/L 45-117 [facility] ALT [Catalytic activity/Vol] 27 U/L 13-56 [facility] CO2 [Moles/Vol] 27.0 mmol/L 21.0-32.0 [facility] Globulin (S) [Mass/Vol] 4.0 g/dL 2.2-4.2 [facility] Urea nitrogen/Creatinine [Mass ratio] 16.2 mg/mg 10-20 [facility] - Hematology and Cell countsOrdered By: Nunu Denson on 02-06-2023 Erythrocyte distribution width (RBC) [Entitic vol] 43.2 fL 35.1-43.9 [facility] Erythrocyte distribution width (RBC) [Ratio] 13.9 % 11.6-14.6 [facility] Immature granulocytes/100 WBC (Bld) 0.500 % 0.0-0.9 [facility] Comment on above: IG% - Immature Granu locytes (promyelocytes, myelocytes and metamyelocytes) > 1% indicates that a LEFT SHIFT is Present. MCH (RBC) [Entitic mass] 26.6 pg 27.0-32.0 [facility] Nucleated RBC/100 WBC (Bld) [Ratio] 0 % 0-5 [facility] MCHC Auto (RBC) [Mass/Vol]Or dered By: Nunu Denson on 02-06-2023 MCHC (RBC) [Mass/Vol] 31.0 g/dL 32-36 [facility] No Panel InformationOrdered By: Nunu Denson on 02-06-2023 Estimated GFR (MDRD) Amer 110 mL/min >60 [facility] Comment on above: GFR Calc Estimated GFR (MDRD) Non-Af Amer 91 mL/min >60 [facility] Comment on above: Non- GFR Calc Platelets bldOrdered By: Daniela Denson on 02-06-2023 Platelets (Bld) [#/Vol] 361 10*3/uL 150-450 [facility] RBC morphologyOrdered By: Duke Denson on 02-06-2023 RBC morphology finding Nom (Bld) NORM C+C NORMAL NORM C&C [facility] Serum or plasma albumin maurice urement (mass/volume)Ordered By: Nunu Denson on 02-06-2023 Albumin [Mass/Vol] 3.8 g/dL 3.2-5.0 [facility] Serum or plasma albumin/glob ulin mass ratioOrdered By: Nunu Denson on 02-06-2023 Albumin/Globulin [Mass ratio] 1.0 {ratio} 0.9-2.4 [facility] Serum or plasma calcium maurice urement (mass/volume)Ordered By: Nunu Denson on 02-06-2023 Calcium [Mass/Vol] 9.5 mg/dL 8.5-10.1 [facility] Serum or plasma creatinine m easurement (mass/volume)Ordered By: Nunu Denson on 02-06-2023 Creatinine [Mass/Vol] 0.80 mg/dL 0.55-1.02 [facility] Comment on above: The validity of the calculated GFR & GFRAA in patients over 70 years has not been determined. Clinical correlation is essential. Serum or plasma urea nitroge n measurement (mass/volume)Ordered By: Nunu Denson on 02-06-2023 Urea nitrogen [Mass/Vol] 13 mg/dL 7-18 [facility] Thin prep Papanicolaou smear with manual screeningOrdered By: Nunu Denson on 02-06-2023 Thin prep Papanicolaou smear with manual screening 17 U/L 15-37 [facility] Thin prep Papanicolaou smear with manual screening 8 5-15 [facility] Basophil percentageon 2021 Chloride [Moles/Vol] 106 mmol/L 98-107 [facility] Work Phone: Cholesterol [Mass/Vol] 178 mg/dL <200 [facility] Work Phone: Comment on above: <200 mg/dL Desirable 200-240 mg/dL Borderline >240 mg/dL High Risk Glucose [Mass/Vol] 75 mg/dL 74-106 [facility] Work Phone: Potassium [Moles/Vol] 3.9 mmol/L 3.5-5.1 [facility] Work Phone: Sodium [Moles/Vol] 138 mmol/L 136-145 [facility] Work Phone: Triglyceride [Mass/Vol] 240 mg/dL [facility] Work Phone: Comment on above: The drugs N-Acetylcy steine and Metamizole may falsely depress this assay.Serum Triglycerides Reference Interval Normal <150 mg/dL Borderline high 150 - 199 mg/dL High 200 - 499 mg/dL Very High > or = 500 mg/dL Laboratory - Chemistry and C hemistry - challengeon 09-28-2021 CO2 [Moles/Vol] 27.0 mmol/L 21.0-32.0 [facility] Work Phone: Urea nitrogen/Creatinine [Mass ratio] 18.4 mg/mg 10-20 [facility] Work Phone: No Panel Informationon 09-28 Estimated GFR (MDRD) Amer 129 mL/min >60 [facility] Work Phone: Comment on above: GFR Calc Estimated GFR (MDRD) Non-Af Amer 107 mL/min >60 [facility] Work Phone: Comment on above: Non- GFR Calc Vitamin D 25-Hydroxy 40.2 ng/mL [facility] Work Phone: Comment on above: Vitamin D 25(OH) Sta tus Range Deficiency <20 ng/mL (50nmol/L) Insufficiency 20 - 30 ng/mL (50 - 75 nmol/L) Sufficiency 30 - 100 ng/mL (75 - 250 nmol/L) Toxicity >100 ng/mL (>250 nmol/L) Serum or plasma calcium maurice urement (mass/volume)on 09-28-2021 Calcium [Mass/Vol] 9.1 mg/dL 8.5-10.1 [facility] Work Phone: Serum or plasma cholesterol in HDL measurement (mass/volume)on 09-28-2021 Cholesterol in HDL [Mass/Vol] 47 mg/dL [facility] Work Phone: Comment on above: The drugs N-Acetylcy steine and Metamizole may falsely depress this assay. Reference Range HDL <40 mg/dL Low HDL Cholesterol HDL >or= 60 mg/dL High HDL Cholesterol Serum or plasma cholesterol in VLDL measurement (mass/volume)on 09-28-2021 Cholesterol in VLDL [Mass/Vol] 48 mg/dL 5-40 [facility] Work Phone: Serum or plasma creatinine m easurement (mass/volume)on 09-28-2021 Creatinine [Mass/Vol] 0.71 mg/dL 0.55-1.02 [facility] Work Phone: Comment on above: The validity of the calculated GFR & GFRAA in patients over 70 years has not been determined. Clinical correlation is essential. Serum or plasma low density lipoprotein (LDL) cholesterol measurement (mass/volume)on 09-28-2021 Cholesterol in LDL [Mass/Vol] 83 mg/dL 0-130 [facility] Work Phone: Serum or plasma urea nitroge n measurement (mass/volume)on 09-28-2021 Urea nitrogen [Mass/Vol] 13 mg/dL 7-18 [facility] Work Phone: Thin prep Papanicolaou smear with manual screeningon 09-28-2021 Thin prep Papanicolaou smear with manual screening 5 5-15 [facility] Work Phone: COVIDon 11-03-2019 COVID 19 Result [employer] See Below Normal [facility] ([place]) Comment on above: Result Comment: Naty killian Negative for COVID19 (SARS CoV2) by PCR. This test was developed and its performance characteristics determined by [facility]'s [facility] [place]. This test has been authorized by FDA under an Emergency Use Authorization (EUA). This test has been validated in accordance with the FDA's Guidance Document Policy for Diagnostics Testing in Laboratories Certified to Perform High Complexity Testing under CLIA prior to Emergency use Authorization for Coronavirus Disease 2019 during the Public Health Emergency issued on August 21, 2019. Performed By: [facility] [address] [place] [address] Printing Press Operator: Felipe Aceves III, M.D. CLIA#: [id number] Phone#: Performed By: #### U A UAMICAO #### [place] [address] #### PREGU #### [address] [address] COVID 19 Source [employer] See Below Normal [facility] ([place]) Comment on above: Result Comment: Naso pharyngeal Swab Performed By: #### U A, UAMICAO #### [address] [address] #### PREGU #### [address] [address] US ABDOMEN LIMITEDon 019 US ABDOMEN LIMITED [...] AM Sign Date: 12/31/2018 8:24:03 AM Normal [facility] ([place]) .Auto Diffon 11-11-2018 Ammonia (P) [Mass/Vol] 0.70 10 3/mcL Normal 0.15-1.00 [facility] ([place]) Comment on above: Performed By: #### U Zenon UAMICAO #### [place] [address] #### PREGU #### [address] [address] Basophils (Bld) [#/Vol] 0.10 10 3/mcL Normal 0.00-0.19 [facility] ([place]) Comment on above: Performed By: #### U Zenon UAMICAO #### [place] [address] #### PREGU #### [address] [address] Basophils/100 WBC (Bld) 0.5 % Normal 0.0-2.5 [facility] ([place]) Comment on above: Performed By: #### U Zenon UAMICAO #### [place] [address] #### PREGU #### [address] [address] Eosinophils (Bld) [#/Vol] 0.30 10 3/mcL Normal 0.00-0.40 [facility] ([place] Comment on above: Performed By: #### U A UAMICAO #### [place] [address] #### PREGU #### [address] [address] Eosinophils/100 WBC (Bld) 2.8 % Normal 0.0-7.0 [facility] ([place]) Comment on above: Performed By: #### U A, UAMICAO #### [place] [address] #### PREGU #### [address] [address] Lymphocytes (Bld) [#/Vol] 3.90 10 3/mcL High 0.77-3.85 [facility] ([place] Comment on above: Performed By: #### U A, UAMICAO #### [place] [address] #### PREGU #### [address] [address] Lymphocytes/100 WBC (Bld) 36.4 % Normal 10.0-50.0 [facility] ([place]) Comment on above: Performed By: #### U A, UAMICAO #### [place] [address] #### PREGU #### [address] [address] Monocytes/100 WBC (Bld) 6.1 % Normal 1.7-13.0 [facility] ([place] Comment on above: Performed By: #### U A, UAMICAO #### [place] [address] #### PREGU #### [address] [address] Neutrophils/100 WBC (Bld) 54.2 % Normal 37.0-80.0 [facility] ([place]) Comment on above: Performed By: #### U A, UAMICAO #### [place] [address] #### PREGU #### [address] [address] .GFRon 11-11-2018 GFR Non- 110 ml/min/1.73sqm Normal [facility] ([place]) Comment on above: Result Comment: GFR [...] Performed By: #### U A, UAMICAO #### [place] [address] #### PREGU #### [address] [address] GFR 133 ml/min/1.73sqm Normal [facility] ([place] Comment on above: Result Comment: GFR Population [...] Performed By: #### U A, UAMICAO #### [place] [address] #### PREGU #### [address] [address] .NEUABSon 11-11-2018 Neutrophils (Bld) [#/Vol] 5.90 10 3/mcL Normal 2.85-6.16 [facility] ([place] Comment on above: Performed By: #### U A, UAMICAO #### [place] [address] #### PREGU #### [address] [address] [facility] Calcium [Mass/Vol] 8.7 mg/dL Normal 8.4-10.2 [facility] ([place]) Comment on above: Performed By: #### U A, UAMICAO #### [place] [address] #### PREGU #### [address] [address] Chloride [Moles/Vol] 104 mmol/L Normal 98-107 [facility] ([place]) Comment on above: Performed By: #### U A, UAMICAO #### [place] [address] #### PREGU #### [address] [address] CO2 [Moles/Vol] 28 mmol/L Normal 22-29 [facility] ([place] Comment on above: Performed By: #### U A, UAMICAO #### [place] [address] #### PREGU #### [address] [address] Creatinine [Mass/Vol] 0.67 mg/dL Normal 0.55-1.02 [facility] ([place]) Comment on above: Performed By: #### U A, UAMICAO #### [place] [address] #### PREGU #### [address] [address] Electrolyte Balance 8.0 mEq/L Normal [facility] ([place]) Comment on above: Performed By: #### U A, UAMICAO #### [place] [address] #### PREGU #### [address] [address] Glucose [Mass/Vol] 84 mg/dL Normal 70-105 [facility] ([place] Comment on above: Performed By: #### U A, UAMICAO #### [place] [address] #### PREGU #### [address] [address] Potassium [Moles/Vol] 3.8 mmol/L Normal 3.5-5.1 [facility] ([place] Comment on above: Performed By: #### U A, UAMICAO #### [place] [address] #### PREGU #### [address] [address] Sodium [Moles/Vol] 140 mmol/L Normal 136-145 [facility] ([place] Comment on above: Performed By: #### U A, UAMICAO #### [place] [address] #### PREGU #### [address] [address] Urea nitrogen [Mass/Vol] 6 mg/dL Low 7-18 [facility] ([place] Comment on above: Performed By: #### U A, UAMICAO #### [place] [address] #### PREGU #### [address] [address] Urea nitrogen/Creatinine [Mass ratio] 9 ratio Normal 7-27 [facility] ([place] Comment on above: Performed By: #### U A, UAMICAO #### [place] [address] #### PREGU #### [address] [address] CBCon 11-11-2018 Erythrocyte distribution width (RBC) [Ratio] 14.4 % Normal 11.5-14.5 [facility] ([place] Comment on above: Performed By: #### U A, UAMICAO #### [place] [address] #### PREGU #### [address] [address] Hematocrit (Bld) [Volume fraction] 33.5 % Low 37.0-47.0 [facility] ([place] Comment on above: Performed By: #### Jaci Yarbrough UAMICAO #### [place] [address] #### PREGU #### [address] [address] Hemoglobin (Bld) [Mass/Vol] 11.3 G/dL Low 12.0-16.0 [facility] ([place] Comment on above: Performed By: #### Jaci Yarbrough UAMICAO #### [place] [address] #### PREGU #### [address] [address] MCH (RBC) [Entitic mass] 26.8 pg Low 27.0-31.2 [facility] ([place] Comment on above: Performed By: #### Jaci Yarbrough UAMICAO #### [place] [address] #### PREGU #### [address] [address] MCHC (RBC) [Mass/Vol] 33.6 G/dL Normal 33.0-37.0 [facility] ([place] Comment on above: Performed By: #### Jaci Yarbrough UAMICAO #### [place] [address] #### PREGU #### [address] [address] MCV (RBC) [Entitic vol] 79.8 fL Low 80.0-94.0 [facility] ([place] Comment on above: Performed By: #### Jaci Yarbrough UAMICAO #### [place] [address] #### PREGU #### [address] [address] Platelet mean volume (Bld) [Entitic vol] 7.0 fL Low 7.4-10.4 [facility] ([place] Comment on above: Performed By: #### Jaci Yarbrough UAMICAO #### [place] [address] #### PREGU #### [address] [address] Platelets (Bld) [#/Vol] 293 10 3/mcL Normal 130-400 [facility] ([place] Comment on above: Performed By: #### Jaci Yarbrough UAMICAO #### [place] [address] #### PREGU #### [address] [address] RBC (Bld) [#/Vol] 4.20 10 6/mcL Normal 4.20-5.40 [facility] ([place] Comment on above: Performed By: #### Jaci Yarbrough UAMICAO #### [place] [address] #### PREGU #### [address] [address] WBC (Bld) [#/Vol] 10.80 10 3/mcL Normal 4.60-10.80 [facility] ([place] Comment on above: Performed By: #### Jaci Yarbrough UAMICAO #### [place] [address] #### PREGU #### [address] [address] .Auto Diffon 11-10-2018 Ammonia (P) [Mass/Vol] 0.80 10 3/mcL Normal 0.15-1.00 [facility] ([place] Comment on above: Performed By: #### U Zenon UAMICAO #### [place] [address] #### PREGU #### [address] [address] Basophils (Bld) [#/Vol] 0.10 10 3/mcL Normal 0.00-0.19 [facility] ([place] Comment on above: Performed By: #### Jaci Yarbrough UAMICAO #### [place] [address] #### PREGU #### [address] [address] Basophils/100 WBC (Bld) 0.8 % Normal 0.0-2.5 [facility] ([place] Comment on above: Performed By: #### U Zenon UAMICAO #### [place] [address] #### PREGU #### [address] [address] Eosinophils (Bld) [#/Vol] 0.20 10 3/mcL Normal 0.00-0.40 [facility] ([place]) Comment on above: Performed By: #### Jaci Yarbrough UAMICAO #### [place] [address] #### PREGU #### [address] [address] Eosinophils/100 WBC (Bld) 1.8 % Normal 0.0-7.0 [facility] ([place]) Comment on above: Performed By: #### Jaci Yarbrough UAMICAO #### [place] [address] #### PREGU #### [address] [address] Lymphocytes (Bld) [#/Vol] 4.60 10 3/mcL High 0.77-3.85 [facility] ([place]) Comment on above: Performed By: #### Jaci Yarbrough UAMICAO #### [place] [address] #### PREGU #### [address] [address] Lymphocytes/100 WBC (Bld) 33.1 % Normal 10.0-50.0 [facility] ([place]) Comment on above: Performed By: #### U Zenon UAMICAO #### [place] [address] #### PREGU #### [address] [address] Monocytes/100 WBC (Bld) 5.6 % Normal 1.7-13.0 [facility] ([place] Comment on above: Performed By: #### U A, UAMICAO #### [address] [address] #### PREGU #### [address] [address] Neutrophils/100 WBC (Bld) 58.7 % Normal 37.0-80.0 [facility] ([place] Comment on above: Performed By: #### U A, UAMICAO #### [address] [address] #### PREGU #### [address] [address] .GFRon 11-10-2018 GFR 143 ml/min/1.73sqm Normal [facility] ([place] Comment on above: Result Comment: GFR Population [...] Performed By: #### U A, UAMICAO #### [address] [address] #### PREGU #### [address] [address] GFR Non- 118 ml/min/1.73sqm Normal [facility] ([place] Comment on above: Result Comment: GFR Population [...] Performed By: #### U Zenon UAMICAO #### [place] [address] #### PREGU #### [place] [address] .NEUABSon 11-10-2018 Neutrophils (Bld) [#/Vol] 8.10 10 3/mcL High 2.85-6.16 [facility] ([place] Comment on above: Performed By: #### Jaci Yarbrough UAMICAO #### [place] [address] #### PREGU #### [place] [address] CBCon 11-10-2018 Erythrocyte distribution width (RBC) [Ratio] 14.6 % High 11.5-14.5 [facility] ([place] Comment on above: Performed By: #### Jaci Yarbrough UAMICAO #### [place] [address] #### PREGU #### [place] [address] Hematocrit (Bld) [Volume fraction] 34.6 % Low 37.0-47.0 [facility] ([place] Comment on above: Performed By: #### U Zenon UAMICAO #### [place] [address] #### PREGU #### [place] [id number] Hemoglobin (Bld) [Mass/Vol] 11.3 G/dL Low 12.0-16.0 [facility] ([place] Comment on above: Performed By: #### U Zenon UAMICAO #### [place] [address] #### PREGU #### [address] [address] MCH (RBC) [Entitic mass] 26.0 pg Low 27.0-31.2 [facility] ([place] Comment on above: Performed By: #### U Zenon UAMICAO #### [place] [address] #### PREGU #### [address] [address] MCHC (RBC) [Mass/Vol] 32.8 G/dL Low 33.0-37.0 [facility] ([place] Comment on above: Performed By: #### Jaci Yarbrough UAMICAO #### [place] [address] #### PREGU #### [address] [address] MCV (RBC) [Entitic vol] 79.4 fL Low 80.0-94.0 [facility] ([place] Comment on above: Performed By: #### Jcai Yarbrough UAMICAO #### [place] [address] #### PREGU #### [address] [address] Platelet mean volume (Bld) [Entitic vol] 6.9 fL Low 7.4-10.4 [facility] ([place] Comment on above: Performed By: #### U Zenon UAMICAO #### [place] [address] #### PREGU #### [address] [address] Platelets (Bld) [#/Vol] 298 10 3/mcL Normal 130-400 [facility] ([place] Comment on above: Performed By: #### U Zenon UAMICAO #### [place] [address] #### PREGU #### [address] [address] RBC (Bld) [#/Vol] 4.35 10 6/mcL Normal 4.20-5.40 [facility] ([place] Comment on above: Performed By: #### Jaci Yarbrough UAMICAO #### [place] [address] #### PREGU #### [address] [address] WBC (Bld) [#/Vol] 13.80 10 3/mcL High 4.60-10.80 [facility] ([place] Comment on above: Performed By: #### Jaci Yarbrough UAMICAO #### [place] [address] #### PREGU #### [address] [address] CMPon 11-10-2018 Albumin [Mass/Vol] 2.8 G/dL Low 3.5-5.0 [facility] ([place]) Comment on above: Performed By: #### Jaci Yarbrough UAMICAO #### [place] [address] #### PREGU #### [address] [address] Albumin/Globulin [Mass ratio] 0.8 {ratio} Low 1.1-2.5 [facility] ([place] Comment on above: Performed By: #### Jaci Yarbrough UAMICAO #### [place] [address] #### PREGU #### [address] [address] ALP [Catalytic activity/Vol] 24 U/L Low 40-135 [facility] ([place] Comment on above: Performed By: #### Jaci Yarbrough UAMICAO #### [place] [address] #### PREGU #### [address] [address] ALT [Catalytic activity/Vol] 22 U/L Normal 10-35 [facility] ([place] Comment on above: Performed By: #### U A, UAMICAO #### [place] [address] #### PREGU #### [address] [address] AST [Catalytic activity/Vol] 15 U/L Normal 10-40 [facility] ([place] Comment on above: Performed By: #### U A, UAMICAO #### [place] [address] #### PREGU #### [address] [address] Bili Total 0.4 mg/dL Normal 0.2-1.0 [facility] ([place] Comment on above: Performed By: #### U A, UAMICAO #### [place] [address] #### PREGU #### [address] [address] Calcium [Mass/Vol] 8.7 mg/dL Normal 8.4-10.2 [facility] ([place] Comment on above: Performed By: #### U A, UAMICAO #### [place] [address] #### PREGU #### [address] [address] Chloride [Moles/Vol] 105 mmol/L Normal 98-107 [facility] ([place] Comment on above: Performed By: #### U A, UAMICAO #### [place] [address] #### PREGU #### [address] [address] CO2 [Moles/Vol] 27 mmol/L Normal 22-29 [facility] ([place] Comment on above: Performed By: #### U A, UAMICAO #### [place] [address] #### PREGU #### [address] [address] Creatinine [Mass/Vol] 0.63 mg/dL Normal 0.55-1.02 [facility] ([place] Comment on above: Performed By: #### U A, UAMICAO #### [place] [address] #### PREGU #### [address] [address] Electrolyte Balance 8.0 mEq/L Normal [facility] ([place] Comment on above: Performed By: #### U A, UAMICAO #### [place] [address] #### PREGU #### [address] [address] Globulin (S) [Mass/Vol] 3.3 G/dL Normal [facility] ([place] Comment on above: Performed By: #### U A, UAMICAO #### [place] [address] #### PREGU #### [address] [address] Glucose [Mass/Vol] 87 mg/dL Normal 70-105 [facility] ([place] Comment on above: Performed By: #### U A, UAMICAO #### [place] [address] #### PREGU #### [address] [address] Potassium [Moles/Vol] 4.1 mmol/L Normal 3.5-5.1 [facility] ([place] Comment on above: Performed By: #### U A, UAMICAO #### [place] [address] #### PREGU #### [address] [address] Protein [Mass/Vol] 6.1 G/dL Low 6.4-8.2 [facility] ([place] Comment on above: Performed By: #### U A, UAMICAO #### [address] [address] #### PREGU #### [address] [address] Sodium [Moles/Vol] 140 mmol/L Normal 136-145 [facility] ([place] Comment on above: Performed By: #### U A UAMICAO #### [address] [address] #### PREGU #### [address] [address] Urea nitrogen [Mass/Vol] 8 mg/dL Normal 7-18 [facility] ([place] Comment on above: Performed By: #### U A, UAMICAO #### [address] [address] #### PREGU #### [address] [address] Urea nitrogen/Creatinine [Mass ratio] 13 ratio Normal 7-27 [facility] ([place] Comment on above: Performed By: #### U A, UAMICAO #### [address] [address] #### PREGU #### [address] [address] [address] ABD/PELVIS W/ IV CONTRAST ONLYon 11-09-2018 [...] PM Sign Date: 11/09/2018 12:13:28 AM Normal [facility] ([place]) LIPIDon 11-09-2018 Cholesterol [Mass/Vol] 182 mg/dL Normal 0-200 [facility] ([place]) Comment on above: Result Comment: Chol esterol Reference Interval: Less than 200 Desirable 200-239 Borderline high risk 240 and above High risk Performed By: #### U A, UAMICAO #### [address] [address] #### PREGU #### [address] [address] Cholesterol in HDL [Mass/Vol] 47 mg/dL Normal 40-60 [facility] ([place] Comment on above: Performed By: #### U A, UAMICAO #### [address] [address] #### PREGU #### [address] [address] Cholesterol in LDL [Mass/Vol] 107 mg/dL Normal 0-130 [facility] ([place] Comment on above: Performed By: #### U A, UAMICAO #### [address] [address] #### PREGU #### [place] [address] Triglyceride [Mass/Vol] 142 mg/dL Normal 0-150 [facility] ([place] Comment on above: Result Comment: Trig lyceride Reference Interval: Less than 150 Normal 150-199 Borderline high risk 200-499 High risk 500 or higher Very high risk Performed By: #### U A, UAMICAO #### [place] [address] #### PREGU #### [place] [address] .Auto Diffon 11-08-2018 Ammonia (P) [Mass/Vol] 1.00 10 3/mcL Normal 0.15-1.00 [facility] ([place] Comment on above: Performed By: #### JUVENAL NIELSON, ANEU #### [place] [address] #### LIP, CMP, GFR #### [place] [address] Basophils (Bld) [#/Vol] 0.10 10 3/mcL Normal 0.00-0.19 [facility] ([place] Comment on above: Performed By: #### JUVENAL NIELSON ANEU #### [place] [address] #### LIP, CMP, GFR #### [place] [address] Basophils/100 WBC (Bld) 0.6 % Normal 0.0-2.5 [facility] ([place] Comment on above: Performed By: #### JUVENAL NIELSON, ANEU #### [place] [address] #### LIP, CMP, GFR #### [place] [address] Eosinophils (Bld) [#/Vol] 0.30 10 3/mcL Normal 0.00-0.40 [facility] ([place]) Comment on above: Performed By: #### JUVENAL NIELSON, ANEU #### [address] [address] #### LIP, CMP, GFR #### [address] [address] Eosinophils/100 WBC (Bld) 1.9 % Normal 0.0-7.0 [facility] ([place]) Comment on above: Performed By: #### C BC, ADIFF, ANEU #### [place] [id number] #### LIP, CMP, GFR #### [address] [address] [address] Lymphocytes (Bld) [#/Vol] 5.90 10 3/mcL High 0.77-3.85 [facility] ([place]) Comment on above: Performed By: #### C BC, ADIFF, ANEU #### [place] [address] #### LIP, CMP, GFR #### [address] [address] Lymphocytes/100 WBC (Bld) 37.0 % Normal 10.0-50.0 [facility] ([place]) Comment on above: Performed By: #### C BC, ADIFF, ANEU #### [place] [address] #### LIP, CMP, GFR #### [address] [address] Monocytes/100 WBC (Bld) 6.3 % Normal 1.7-13.0 [facility] ([place]) Comment on above: Performed By: #### C BC, ADIFF, ANEU #### [place] [id number] #### LIP, CMP, GFR #### [address] [address] Neutrophils/100 WBC (Bld) 54.2 % Normal 37.0-80.0 [facility] ([place]) Comment on above: Performed By: #### C BC, ADIFF, ANEU #### [place] [address] #### LIP, CMP, GFR #### [address] [address] .GFRon 11-08-2018 GFR Non- 103 ml/min/1.73sqm Normal [facility] ([place]) Comment on above: Result Comment: GFR Population [...] By: #### C BCJUVENAL, ANEU #### Mohamud [address] [address] #### LIP, CMP, GFR #### [address] [address] GFR 125 ml/min/1.73sqm Normal [facility] ([place]) Comment on above: Result Comment: GFR Population [...] By: #### C BC, ADIFF, ANEU #### [address] [address] #### LIP, CMP, GFR #### [address] [address] .NEUABSon 11-08-2018 Neutrophils (Bld) [#/Vol] 8.70 10 3/mcL High 2.85-6.16 [facility] ([place]) Comment on above: Performed By: #### C JUVENAL SEN, ANEU #### [place] [address] #### LIP, CMP, GFR #### [place] [address] .Urinalysis Microscopic (AO) on 11-08-2018 RBC (U) [#/Vol] 0-5 Abnormal None Seen [facility] ([place] Comment on above: Performed By: #### U A, UAMICAO #### [place] [address] #### PREGU #### [place] [address] UA Bacteria Trace Abnormal [facility] ([place]) Comment on above: Performed By: #### U A, UAMICAO #### [place] [address] #### PREGU #### [place] [address] UA Squam Epithelial 5-10 Abnormal None Seen [facility] ([place]) Comment on above: Performed By: #### U A, UAMICAO #### [place] [address] #### PREGU #### [place] [address] UA WBC None Seen Normal None Seen [facility] ([place] Comment on above: Performed By: #### U A, UAMICAO #### [place] [address] #### PREGU #### [place] [address] CBCon 11-08-2018 Erythrocyte distribution width (RBC) [Ratio] 14.5 % Normal 11.5-14.5 [facility] ([place]) Comment on above: Performed By: #### C BC, ADIFF, ANEU #### [address] [address] #### LIP, CMP, GFR #### [address] [address] Hematocrit (Bld) [Volume fraction] 38.5 % Normal 37.0-47.0 [facility] ([place] Comment on above: Performed By: #### C FRANCY, ADIFF, ANEU #### [place] [address] #### LIP, CMP, GFR #### [address] [address] Hemoglobin (Bld) [Mass/Vol] 12.5 G/dL Normal 12.0-16.0 [facility] ([place] Comment on above: Performed By: #### C FRANCY, ADIFF, ANEU #### [place] [address] #### LIP, CMP, GFR #### [address] [address] MCH (RBC) [Entitic mass] 25.4 pg Low 27.0-31.2 [facility] ([place]) Comment on above: Performed By: #### C FRANCY, ADIFF, ANEU #### [place] [address] #### LIP, CMP, GFR #### [address] [address] MCHC (RBC) [Mass/Vol] 32.5 G/dL Low 33.0-37.0 [facility] ([place]) Comment on above: Performed By: #### C FRANCY, ADIFF, ANEU #### [place] [address] #### LIP, CMP, GFR #### [address] [address] MCV (RBC) [Entitic vol] 78.2 fL Low 80.0-94.0 [facility] ([place] Comment on above: Performed By: #### C FRANCY, ADIFF, ANEU #### [place] [address] #### LIP, CMP, GFR #### [address] [address] Platelet mean volume (Bld) [Entitic vol] 7.1 fL Low 7.4-10.4 [facility] ([place] Comment on above: Performed By: #### C BC, ADIFF, ANEU #### [place] [address] #### LIP, CMP, GFR #### [address] [address] Platelets (Bld) [#/Vol] 344 10 3/mcL Normal 130-400 [facility] ([place] Comment on above: Performed By: #### C BC, ADIFF, ANEU #### [place] [address] #### LIP, CMP, GFR #### [address] [address] RBC (Bld) [#/Vol] 4.92 10 6/mcL Normal 4.20-5.40 [facility] ([place]) Comment on above: Performed By: #### C BC, ADIFF, ANEU #### [place] [address] #### LIP, CMP, GFR #### [address] [address] WBC (Bld) [#/Vol] 16.10 10 3/mcL High 4.60-10.80 [facility] ([place]) Comment on above: Performed By: #### C BC, ADIFF, ANEU #### [place] [address] #### LIP, CMP, GFR #### [address] [address] CMPon 11-08-2018 Albumin [Mass/Vol] 3.1 G/dL Low 3.5-5.0 [facility] ([place]) Comment on above: Performed By: #### C BC, ADIFF, ANEU #### [address] [address] #### LIP, CMP, GFR #### [address] [address] Albumin/Globulin [Mass ratio] 0.8 {ratio} Low 1.1-2.5 [facility] ([place] Comment on above: Performed By: #### C BC, ADIFF, ANEU #### [place] [address] #### LIP, CMP, GFR #### [address] [address] ALP [Catalytic activity/Vol] 26 U/L Low 40-135 [facility] ([place] Comment on above: Performed By: #### C BC, ADIFF, ANEU #### [place] [address] #### LIP, CMP, GFR #### [address] [address] ALT [Catalytic activity/Vol] 27 U/L Normal 10-35 [facility] ([place]) Comment on above: Performed By: #### C BC, ADIFF, ANEU #### [place] [address] #### LIP, CMP, GFR #### [address] [address] AST [Catalytic activity/Vol] 17 U/L Normal 10-40 [facility] ([place]) Comment on above: Performed By: #### C BC, ADIFF, ANEU #### [place] [address] #### LIP, CMP, GFR #### [address] [address] Bili Total 0.2 mg/dL Normal 0.2-1.0 [facility] ([place] Comment on above: Performed By: #### C BC, ADIFF, ANEU #### [place] [address] #### LIP, CMP, GFR #### [address] [address] Calcium [Mass/Vol] 8.8 mg/dL Normal 8.4-10.2 [facility] ([place]) Comment on above: Performed By: #### C BC, ADIFF, ANEU #### [address] [address] #### LIP, CMP, GFR #### [address] [address] Chloride [Moles/Vol] 105 mmol/L Normal 98-107 [facility] ([place] Comment on above: Performed By: #### C BC, ADIFF, ANEU #### [address] [address] #### LIP, CMP, GFR #### [address] [address] CO2 [Moles/Vol] 26 mmol/L Normal 22-29 [facility] ([place]) Comment on above: Performed By: #### C BC, ADIFF, ANEU #### [place] [address] #### LIP, CMP, GFR #### [address] [address] Creatinine [Mass/Vol] 0.71 mg/dL Normal 0.55-1.02 [facility] ([place]) Comment on above: Performed By: #### C BC, ADIFF, ANEU #### [address] [address] #### LIP, CMP, GFR #### [address] [address] Electrolyte Balance 11.0 mEq/L Normal [facility] ([place]) Comment on above: Performed By: #### C BC, ADIFF, ANEU #### [place] [address] #### LIP, CMP, GFR #### [address] [address] Globulin (S) [Mass/Vol] 3.9 G/dL Normal [facility] ([place]) Comment on above: Performed By: #### C BC, ADIFF, ANEU #### [address] [address] #### LIP, CMP, GFR #### [address] [address] Glucose [Mass/Vol] 115 mg/dL High 70-105 [facility] ([place]) Comment on above: Performed By: #### C BC, ADIFF, ANEU #### [address] [address] #### LIP, CMP, GFR #### [address] [address] Potassium [Moles/Vol] 3.6 mmol/L Normal 3.5-5.1 [facility] ([place] Comment on above: Performed By: #### C BC, ADIFF, ANEU #### [address] [address] #### LIP, CMP, GFR #### [address] [address] Protein [Mass/Vol] 7.0 G/dL Normal 6.4-8.2 [facility] ([place]) Comment on above: Performed By: #### C BC, ADIFF, ANEU #### [address] [address] #### LIP, CMP, GFR #### [address] [address] Sodium [Moles/Vol] 142 mmol/L Normal 136-145 [facility] ([place]) Comment on above: Performed By: #### C BC, ADIFF, ANEU #### [address] [address] #### LIP, CMP, GFR #### [address] [address] Urea nitrogen [Mass/Vol] 16 mg/dL Normal 7-18 [facility] ([place]) Comment on above: Performed By: #### C BC, ADIFF, ANEU #### [address] [address] #### LIP, CMP, GFR #### [address] [address] Urea nitrogen/Creatinine [Mass ratio] 23 ratio Normal 7-27 [facility] ([place]) Comment on above: Performed By: #### C BC, ADIFF, ANEU #### [address] [address] #### LIP, CMP, GFR #### [address] [address] LIPon 11-08-2018 Lipase Level >2250 High 73-393 [facility] ([place]) Comment on above: Performed By: #### C BC, ADIFF, ANEU #### [address] [address] #### LIP, CMP, GFR #### [place] [address] PREGUon 11-08-2018 HCG ( test) Ql (U) Negative Normal [facility] ([place] Comment on above: Performed By: #### U A, UAMICAO #### [place] [address] #### PREGU #### [address] [address] test (u) int HCG not detected. [facility] ([place] Comment on above: Performed By: #### U A, UAMICAO #### [place] [address] #### PREGU #### [address] [address] UAon 11-08-2018 Color (U) Yellow Normal [facility] ([place] Comment on above: Performed By: #### U A, UAMICAO #### [place] [address] #### PREGU #### [address] [address] Glucose (U) [Mass/Vol] Negative Normal Negative [facility] ([place]) Comment on above: Performed By: #### U A, UAMICAO #### [place] [address] #### PREGU #### [address] [address] Ketones Ql (U) Negative Normal Negative [facility] ([place] Comment on above: Performed By: #### U A, UAMICAO #### [place] [address] #### PREGU #### [address] [address] UA Appear Clear Normal Clear [facility] ([place] Comment on above: Performed By: #### U A, UAMICAO #### [place] [address] #### PREGU #### [address] [address] UA Blood Moderate Abnormal Negative [facility] ([place] Comment on above: Performed By: #### U A, UAMICAO #### [place] [address] #### PREGU #### [address] [address] UA Leuk Est Negative Normal Negative [facility] ([place]) Comment on above: Performed By: #### U A, UAMICAO #### [place] [address] #### PREGU #### [address] [address] UA Nitrite Negative Normal Negative [facility] ([place] Comment on above: Performed By: #### U A, UAMICAO #### [place] [address] #### PREGU #### [address] [address] UA pH 5.5 Normal 5.0 - 8.0 [facility] ([place]) Comment on above: Performed By: #### U A, UAMICAO #### [place] [address] #### PREGU #### [address] [address] UA Protein Negative Normal Negative [facility] ([place] Comment on above: Performed By: #### U A, UAMICAO #### [place] [address] #### PREGU #### [address] [address] UA Spec Grav 1.025 Normal 1.015-1.025 [facility] ([place]) Comment on above: Performed By: #### U A, UAMICAO #### [place] [address] #### PREGU #### [address] [address] UA Specimen Type Void Normal [facility] ([place]) Comment on above: Performed By: #### U A, UAMICAO #### [place] [address] #### PREGU #### [address] [address] UA Urobilinogen 0.2 E.U./dL Normal 0.2-1.0 [facility] ([place]) Comment on above: Performed By: #### U A, UAMICAO #### [place] [address] #### PREGU #### [address] [address] Urobilinogen Qn (U) Negative Normal Negative [facility] ([place]) Comment on above: Performed By: #### U A, UAMICAO #### [place] [address] #### PREGU #### [address] [address] Vital Signs Date Time Vital Sign Value Performing Clinician Facility 01-27-2025 15:21040 Body height 161.[address] Jeffrey Orourke MD Work Phone: [facility] 01-27-2025 15:21-0400 Body mass index (BMI) [Ratio] 47.7 kg/m2 Dr. Jeffrey Orourke MD Work Phone: 1(023)285-134871 [place] [address] 01-27-2025 15:21-0400 Body weight 124.[address] Jeffrey Orourke MD Work Phone: 6(014)712-838971 [place] [address] 01-27-2025 15:21-0400 Diastolic blood pressure 86 mm[Hg] Dr. Jeffrey Orourke MD Work Phone: 5(316)879-535571 [place] [address] 01-27-2025 15:21-0400 Systolic blood pressure 128 mm[Hg] Dr. Jeffrey Orourke MD Work Phone: 6(916)674-165171 [place] [address] 12-23-2024 15:33-0400 Body height 161.[address] Jeffrey Orourke MD Work Phone: 5(214)867-143971 [place] [address] 12-23-2024 15:33-0400 Body mass index (BMI) [Ratio] 47.9 kg/m2 Dr. Jeffrey Orourke MD Work Phone: 7(901)451-356871 [place] [address] 12-23-2024 15:33-0400 Body weight 124.[address] Jeffrey Orourke MD Work Phone: 3(576)303-234771 [place] [address] 12-23-2024 15:33-0400 Diastolic blood pressure 75 mm[Hg] Dr. Jeffrey Orourke MD Work Phone: 9(704)106-000871 [place] [address] 12-23-2024 15:33-0400 Systolic blood pressure 122 mm[Hg] Dr. Jeffrey Orourke MD Work Phone: 5(507)180-227571 [place] [address] 10-08-2024 14:00-0400 Body mass index (BMI) [Ratio] 47.8 kg/m2 Dr. Jeffrey Orourke MD Work Phone: 2(647)948-922871 [place] [address] 10-08-2024 14:00-0400 Body weight 124.[address] Jeffrey Orourke MD Work Phone: 8(305)708-407171 [place] [address] 10-08-2024 14:00-0400 Diastolic blood pressure 82 mm[Hg] Dr. Jeffrey Orourke MD Work Phone: 4(060)139-593171 [place] [address] 10-08-2024 14:00-0400 Heart rate 95 /min Dr. Jeffrey Orourke MD Work Phone: 0(058)151-276671 [place] [address] 10-08-2024 14:00-0400 SaO2% (BldA) [Mass fraction] 96 % Dr. Jeffrey Orourke MD Work Phone: [facility] 10-08-2024 14:00-0400 Systolic blood pressure 119 mm[Hg] Dr. Jeffrey Orourke MD Work Phone: [facility] 06-30-2022 14:00-0500 Blood Pressure Location ALMA [employer] [facility] 06-30-2022 14:00-0500 Blood Pressure Method ALMA PATEL[employer] [facility] 06-30-2022 14:00-0500 Body temperature 98.06 [degF] [employer] [employer] [facility] 06-30-2022 14:00-0500 Diastolic Blood Pressure Non-Invasive 88 1 [employer] [facility] 06-30-2022 14:00-0500 Heart rate 97 /min ALMA Penango [facility] 06-30-2022 14:00-0500 Respiratory rate 16 /min [employer]MA [employer] [facility] 06-30-2022 14:00-0500 Systolic Blood Pressure Non-Invasive 136 1 [facility] [employer] [facility] Encounters Encounter Date Encounter Type Care Provider Facility Start: 03-16-2025 ambulatory Marquita Bourgeois NP Facil ity:[facility] Start: 02-03-2025 Encounter for genera l adult medical examination without abnormal findings [facility] Start: 01-27-2025 End: 01-27-2025 Patient encounter procedure Nancy CHAU -[facility] Work Phone: Start: 01-27-2025 End: 01-27-[address] Jeffrey Orourke MD Work Phone: -[facility] Start: 01-27-2025 End: 01-27-2025 ambulatory Jeffrey Orourke Facility:[facility] Start: 12-23-2024 End: 12-23-2024 Patient encounter procedure Nancy Quevedo [employer] -[facility] Work Phone: Start: 12-23-2024 End: 12-23-[address] Jeffrey Orourke MD Work Phone: -[facility] Start: 12-23-2024 End: 12-23-2024 ambulatory Jeffrey Orourke Facility:[facility] Start: 10-08-2024 End: 10-08-[address] Aldo Linares MD -[facility] Work Phone: Start: 10-08-2024 End: 10-08-2024 ambulatory Jeffrey Orourke Facility:[facility] Start: 07-15-2024 End: 07-15-2024 ambulatory Jeffrey Orourke Facility:[facility] Start: 07-13-2024 End: 07-13-2024 ambulatory Nancy Quevedo Facility:[facility] Start: 04-07-2024 End: 04-07-2024 ambulatory Jeffrey Orourke Facility:[facility] Start: 04-07-2024 End: 04-07-[facility] Start: 03-29-2024 End: 03-29-2024 Emergency department patient visit Gurjit Rios Facility:[facility] Start: 02-20-2023 End: 02-20-2023 ambulatory [facility] Work Phone: Start: 02-20-2023 End: 02-20-2023 Patient encounter procedure [facility] Work Phone: Start: 02-12-2023 End: 02-12-2023 ambulatory [facility] Work Phone: Start: 02-12-2023 End: 02-12-2023 Patient encounter procedure [facility] Start: 02-06-2023 End: 02-06-2023 Patient encounter procedure [facility] Work Phone: Start: 06-30-2022 End: 06-30-2022 Emergency department patient visit ALMA SANTILLAN DO [facility] Start: 09-28-2021 End: 09-28-2021 Patient encounter procedure [facility] Start: 08-05-2020 Patient encounter procedure Josh Pimentel MD Work Phone: [facility] Start: 08-05-2020 Progress Note Josh Pimentel MD Work Phone: [facility] Procedures Date Procedure Procedure Detail Performing Clinician [...] therefore, no HPV testing was performed.Performed at: [address] [id number] Director: Magalis Barakat MD, Phone: [phone] Start: 02-20-2023 Ultrasonography of abdomen None (qualifier value) BENSON SANTILLAN DO Plan of Treatment Date Care Activity Detail Author Start: 01-27-2025 Procedure [facility] Start: 12-23-2024 Liquid based cervica l cytology screening [facility] Start: 02-21-2022 Influenza vaccination INFLUENZ A (Season Ended) [facility] Start: 12-17-2016 PAP TESTING PAP TESTING [facility] Start: 12-17-2014 Urine microalbumin profile DTAP,TDAP,TD (1 - Tdap) [facility] Start: 12-17-2013 HEPATITIS C SCREENING HEPATITIS C [facility] Start: 12-17-2013 HIV SCREENING HIV SCREENING [facility] Start: 12-17-2009 PEDS TO ADULT TRANSI TION ANNUAL ASSESSMENT PEDS TO ADULT TRANSITION ANNUAL ASSESSMENT [facility] Start: 2007 Adult depression screening assessment DEPRESSION SCREENING [facility] Start: 2007 PEDS TO ADULT TRANSI TION INITIAL DISCUSSION PEDS TO ADULT TRANSITION INITIAL DISCUSSION [facility] Start: 12-17-2006 HPV VACCINE (1 - 2-d ose series) HPV VACCINE (1 - 2-dose series) [facility] Start: 12-17-2000 COVID-19 VACCINE (#1) COVID-19 VACCI NE (#1) [facility] Liquid based cervica l cytology screening [facility] Path report.final Dx Spec [facility] T4 free measurement [facility] Thyroid stimulating hormone measurement [facility] Immunizations Immunization Date Immunization Notes Care Provider Fa godwin 05-30-2018 tetanus toxoid, redu chastity diphtheria toxoid, and acellular pertussis vaccine, adsorbed; Translations: [Boostrix (Tdap)] ALMA SANTILLAN DO [facility] Payers Date Payer Category Payer Self-pay [id number] 2024 Unknown [id number] 2015 Medicaid [facility] MEDICAID [facility] [employer] MEDICAID [id number] 2015-Present [phone] [address] [place] [address] Medicaid [id number] Private Health Insurance [employer] [id number] Unknown [id number] Unknown [id number] Unknown [id number] 462 Unknown [id number] [id number]. 462 Unknown [id number] [id number]. 462 Unknown [id number] [id number]. 462 Unknown [id number] [id number]. 462 Unknown [id number] [id number]. 462 Unknown [id number] [id number]. 462 Unknown [id number] [id number]. 462 Unknown [id number] [id number]. 462 Unknown [id number] [id number]. 462 Unknown [id number]. 462 Social History Date Type Detail Facility [facility] Work Phone: Start: 1995 Sex Assigned At Female [facility] Start: 12-19-2014 [facility] End: 11-28-2014 History of tobacco use Current smoker [facility] End: 11-28-2014 History of tobacco use Cigarette Smoker [facility] Start: 09-18-2015 Alcohol intake Not Asked [facility] Start: 1995 Sex Assigned At Not on file [facility] Tobacco Nicotine Use: Va ping Product in Last 90 Days. [facility] Tobacco smoking status Smokes to bacco daily (finding) [facility] Sex Assigned At Sex [facility] Start: 03-29-2024 [facility] Never [facility] (finding) [facility] Functional Status Date Assessment Result Facility 06-30-2022 Functional Status Safety level maintained [facility] Mental Status Date Assessment Result Facility 06-30-2022 Mental Status Oriented x 4 [facility] Clinical Notes 08-05-2020 to 01-27-2025 Note Date & Type Note Facility 01-27-2025 Progress note [facility] 01-27-2025 Progress note Note Date/Time January 27, 2025 4:02pm [facility] [address], [address] [place] [address] OFFICE VISIT Date of Service: 01/27/25 MR#: [id number] Acct: [id number] Name: JUANITO ESTEVEZ Rep #: [id number] : 1995 Provider: ISAC Quevedo Age/Sex: 29/F Location: [facility] Status: Signed Intake Vital Signs 12/23/24 15:33 01/27/25 15:21 Height 5 ft 3.5 in 5 ft 3.5 in Weight: 275 lb 273 lb 8 oz BMI 47.9 47.7 BP 122/75 H 128/86 H Intake Visit Reasons: OCP discussion $30 copay Diagnostic Technician Required: No Is patient in pain?: No [...] 0 current occupational status: employed current occupation: [employer] current occupational exposures/hazards: No pets and animals: [...] in: walking frequency: 3-4 times per week marisol/christian: None seatbelt use: always do you feel safe at home: Yes HPI OCP discussion $30 copay Details: JUANITO ESTEVEZ is a 29 year old who presents for OCP discussion vs provera challenge. She has been having irregular menses x 2 years; recently however has not had a menses since Jul 2024. Multiple negative tests. History of PCOS. It was recommended by her computer science instructor to start OCP however she has a [...] Cosigner Signature: Date (if applicable) CC: ~ [facility] Work Phone: 1(716) 657-693104-18-2025 Evaluation note* Diagnosis Onset Date Resolution Status Admit Date Abnormal results of thyroid function studies chronic October 08 1:51pm PCOS (polycystic ovarian syndrome) chronic October 08, 2024 1:51pm Irregular menses acute December 3:29pm Women's annual routine gynecological examination acute December 232024 3:29pm Abnormal results of thyroid function studies chronic December 23, 2024 3:29pm PCOS (polycystic ovarian syndrome) chronic December 23, 2024 3 :29pm [facility] Work Phone: 1(785) 154-312804-18-2025 Evaluation note* Diagnosis Onset Date Resolution Status [...] ovarian syndrome) chronic January 27, 2025 3:15pm [facility] Work Phone: 1(666) 249-613701-08-2023 Hospital Discharge instructions Patient Education 06/30/2022 15:06:03 [...] shoulder or upper arm Fever or chills [phone] [employer]. [address] [place] [address]. All rights reserved. This information is not intended as a substitute for professional medical care. Always follow yourhealthcare professional's instructions. Follow [facility] 06/30/2022 13:50:13 With:Call SEGUN Staley [phone] Address:Unknown When:2-4 days [facility] 01-08-2023 Note Discharge Instructions Thank you for allowing [facility] to assist you with your healthcare needs. The following is importantdischarge information regarding your hospital visit. Diagnosis from Today's Visit Fall Shoulder pain-swelling What to Do Next Instructions from Your Care Team No qualifying data available. Post Acute Orders No qualifying data available. You Need to Schedule the Following Appointments Follow Up with Call SEGUN Brown Pt. Refferral [phone] When Within 2-4 days Allergies penicillin Medications [...] shoulder or upper arm Fever or chills [phone] [employer]. [address] [place] [address]. All rights reserved. This information is not intended as a substitute for professional medical care. Always follow yourhealthcare professional's instructions. Additional Information VACCINATE! IT SAVES LIVES! Members of the community who have not yet received the COVID-19 vaccine and would like to receive it can visit one of [facility] vaccine clinics. There are many vaccine clinic locations within the [facility]. For locations and available times, please visit [email or web address]. It is important to note that some COVID mobile vaccine clinics are held outdoors and may be canceled in rainy orstormy conditions. To learn more about pediatric vaccinations (ages 5-11), we invite you to visit the [facility] webpage. https://www.[facility].org/pages/8923-Lojrc-Faquapcwchz-Dwevmcshfx-Amolb-Vlc stions.htmlTo learn more about the COVID-19 vaccine, we invite you to visit the [facility] website for a list of frequently asked questions. [email or web address]/assets/Vubiqspp-dmd-Nruheaed/dyxmy-Wonebth-Flujniedqe _Asked-Questions.pdf [facility] Patient Portal Access Instructions: Stay connected with your healthcare team and access your personal medical information anytime with the [facility] Patient Portal. If you would like a full copy of your medical records please contact the [facility] Medical Records Department Friday through Friday between 8a.m. and 4:30p.m. Please follow the directions below to access the portal: 1.Access the email account you provided upon registration to the [facility].2.Look for an invitation email from [facility].3.Open the email and access the invitation link: Accept Invitation to [employer]4.Fill in the required metzger to create your account. Sign into www.eDreams [email or web address] with your username and password that you [...] you will allow to register on the [employer] Patient Portal for access to your information. You can also access the [employer] Patient Portal on the [employer]. Simply click on Health Records under [place] and then click on the [employer] logo. HOW TO SAFELY DISPOSE OF PRESCRIPTION [...] Call your local pharmacy or go to http://Supersolid.microDimensions/5H1Ch2m to find one close to you.3.Make use of household items: Use cat litter or old coffee grounds to dispose medications if other options arenot available. Mix your drugs with these household products, seal them in an airtight container andthrow it into the garbage. Call [facility]: [phone] to be sure your drugs can be [...] aware that I should contact my doctor. Patient/Natural Sciences Department Chair Signature: Date/Time: Relationship to Patient: Witness Name/Signature: Date/Time: [facility]01-08-2023 Note Discharge Instructions Thank you for allowing [facility] to assist you with your healthcare needs. The following is importantdischarge information regarding your hospital visit. Diagnosis from Today's Visit Fall Shoulder pain-swelling What to Do Next Instructions from Your Care Team No qualifying data available. Post Acute Orders No qualifying data available. You Need to Schedule the Following Appointments Follow Up with Call SEGUN Brown Pt. Refferral [phone] When Within 2-4 days Allergies penicillin Medications [...] shoulder or upper arm Fever or chills [phone] [employer]. [address] [place] [address]. All rights reserved. This information is not intended as a substitute for professional medical care. Always follow yourhealthcare professional's instructions. Additional Information VACCINATE! IT SAVES LIVES! Members of the community who have not yet received the COVID-19 vaccine and would like to receive it can visit one of [facility] vaccine clinics. There are many vaccine clinic locations within the [facility]. For locations and available times, please visit www.[email or web address]. It is important to note that some COVID mobile vaccine clinics are held outdoors and may be canceled in rainy orstormy conditions. To learn more about pediatric vaccinations (ages 5-11), we invite you to visit the [facility] webpage. https://www.[facility].org/pages/4612-Qlwqj-Xbavhxnpwkl-Sjkfmhhvsn-Lrzxi-Svg stions.htmlTo learn more about the COVID-19 vaccine, we invite you to visit the [facility] website for a list of frequently asked questions. [email or web address]/assets/Ncxwhiym-[email or web address]-Tiooqxoi/vyutz-Runockw-Yphepfkspn _Asked-Questions.pdf [facility] Patient Portal Access Instructions: Stay connected with your healthcare team and access your personal medical information anytime with the [facility] Patient Portal. If you would like a full copy of your medical records please contact the [facility] Medical Records Department Friday through Friday between 8a.m. and 4:30p.m. Please follow the directions below to access the portal: 1.Access the email account you provided upon registration to the [facility].2.Look for an invitation email from [facility].3.Open the email and access the invitation link: Accept Invitation to [employer]4.Fill in the required metzger to create your account. Sign into www.eDreams Edusoft with your username and password that you [...] you will allow to register on the [facility] Patient Portal for access to your information. You can also access the [employer] Patient Portal on the [employer]. Simply click on Health Records under [place] and then click on the [employer] logo. HOW TO SAFELY DISPOSE OF PRESCRIPTION [...] Call your local pharmacy or go to http://Supersolid.microDimensions/1U0Ip0s to find one close to you.3.Make use of household items: Use cat litter or old coffee grounds to dispose medications if other options arenot available. Mix your drugs with these household products, seal them in an airtight container andthrow it into the garbage. Call [facility]: [phone] to be sure your drugs can be [...] aware that I should contact my doctor. Patient/Natural Sciences Department Chair Signature: Date/Time: Relationship to Patient: Witness Name/Signature: Date/Time: [facility]01-08-2023 Note ORIGINAL EXAMINATION: TWO XRAY VIEWS OF [...] Sign Date: 06/30/2022 2:59:31 PM Ordering Provider: [facility] [address]01-08-2023 Note ORIGINAL EXAMINATION: TWO XRAY VIEWS OF [...] Sign Date: 06/30/2022 2:59:31 PM Ordering Provider: [facility]02-13-2021 History of Present illness Narrative* Josh Pimentel [...] answered to her satisfaction. Josh Pimentel MD [id number] [facility]SI File#: [id number] END OF DOCUMENT / CHANGE LOG FOLLOWS Last Edited By [employer]. Signed By Josh Pimentel MD #PAWPR Josh Pimentel MD #PAWPR on 08/06/2020 10:09 ET on 08/06/2020 10:09 ET Revision Number - 2 ^^^ Verified/Reviewed by 08/06/[address] [facility] PATIENT NAME: JUANITO ESTEVEZ [facility] [address] MEDICAL REC #: [id number] [place] [address] [facility] REPORT STATCARE PHYSICIAN documented in this encounterWest [facility] ClinicEvaluation + Plan note No data available for this section [facility] Evaluation noteNo assessment information available [facility] Work Phone: Reason for referral (narrative)No reason for referral information [facility]Southern [facility] Work Phone: Summary Purpose Family [...] Thyroid October 08, 2024 1:5 1pm Annual (PROGRAM AIDE) December 23, 2024 3:29p m Reason for [...] Thyroid October 08, 2024 1:5 1pm Annual (PROGRAM AIDE) December 23, 2024 3:29p m OCP discussion [...] section and content) DATE CREATED AUTHOR 11/09/2019 [facility] ([place]) DATE CREATED AUTHOR AUTHOR'S ORGANIZ ATION 03/12/2025 [facility] Goals (unrecognized section and content) Goals may [...] or prosecute any alcohol or drug abuse patient.[facility] Care Teams (unrecognized sec tion and content) Farm Supervisor Relationship Specialty Start Date End Date Jeffrey [...] Member Role: ED Physician Address: Address: [address] [place] [address] Care Team Related Persons Name: PRO ESTEVEZ [...] BE BASED ON THE PRIMARY CLINICAL RECORDS. [facility], [facility]. provides no warranty or guarantee of the accuracy or completeness of information in this document.
== END | disposition home or self-care (01) ==
LOC: LABSPEC 16:02
PROVIDERS: PCP Family Medicine; Visit Provider Nurse Practitioner Women's Health
DX: N89.8 Other specified noninflammatory disorders of vagina (principal); N88.8 Other specified noninflammatory disorders of cervix uteri; Z30.431 Encounter for routine checking of intrauterine contraceptive device
CPT/HCPCS: 87070; 87205

== ENCOUNTER → 2025-03-30 | Outpatient (CLI) | payer OTHER, SELFPAY ==
--- NOTE | 2025-03-30 08:32 | US_ITS ---
PROCEDURE: PELVIC W/ TRANSVAGINAL REASON FOR EXAM: IUD CHECK, VAGINAL WALL CYST TECHNIQUE: Procedure Code: USPELTVAG Modality: US Procedure: PELVIC W/ TRANSVAGINAL COMPARISON: None FINDINGS: LMP: March 22, 2025 Measurements: Uterus: 7.1 cm x 5.1 cm x 3.5 cm with a volume of 65.8 mL Endometrial Thickness: 11 mm. It is hyperechoic. An IUD is seen in the disease in the fundal portion of the endometrium. Right Ovary: 4.2 cm x 2.8 cm x 2.2 cm with a volume of 13.3 mL. Left Ovary: 3.9 cm x 2.1 cm x 2.1 cm with a volume of 9.2 mL. TRANSABDOMINAL: Uterus: Normal size, myometrial echotexture, and contour. Endometrium: Unremarkable. Right ovary: Normal size and echotexture. Left ovary: Normal size and echotexture. Other: IUD seen within the fundal portion of the endometrium. Transvaginal sonography was performed to better visualize the endometrium. TRANSVAGINAL: Uterus: Anteverted. Normal contour and myometrial echotexture. Endometrium: Normal echotexture. IUD is seen within the fundal portion of the endometrium. Right ovary: Normal size and echotexture. Left ovary: Normal size and echotexture. Other adnexal findings: None. Cul-de-sac: No free intraperitoneal fluid identified. Tenderness: No tenderness . US/Pelvic w/ Transvaginal IMPRESSION: IUD seen within the fundal portion of the endometrium. Reading Location: [id number]
== END | disposition home or self-care (01) ==
PROVIDERS: PCP Family Medicine; Referring Provider Nurse Practitioner Women's Health; Visit Provider Nurse Practitioner Women's Health
DX: Z30.431 Encounter for routine checking of intrauterine contraceptive device (principal); N89.8 Other specified noninflammatory disorders of vagina; N88.8 Other specified noninflammatory disorders of cervix uteri
CPT/HCPCS: 76830; 76856